=== PATIENT | male | born 1930 | race Caucasian/White ===

== ENCOUNTER 2018-04-10 16:37 | Emergency (ER) | payer OTHER ==
--- NOTE | 2018-04-10 16:41 | UC ---
Laceration HPI - HPI Summary HPI Summary: 88 yo male presents with LEFT leg laceration. 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 Sustained a laceration here. He bandaged the area and came to - History Of Current Complaint Stated Complaint: LEG LAC Time Seen by Provider: 04/10/18 16:38 Hx Obtained From: Patient Laceration Location: Leg Mechanism Of Injury: Blunt Trauma Onset/Duration: Sudden Onset Severity: Mild Pain Intensity: 2 Pain Scale Used: 0-10 Numeric - Allergies/Home Medications Allergies/Adverse Reactions: Allergies Allergy/AdvReac Type Severity Reaction Status Date / Time No Known Allergies Allergy Verified 04/10/18 17:06 PMH/Surg Hx/FS Hx/Imm Hx Cardiovascular History: Cardiac Disease, Hypertension, Atrial Fibrillation - Surgical History Surgical History: Yes Surgery Procedure, Year, and Place: HERNIA REPAIR, T&A - Family History Known Family History: Positive: Hypertension - Social History Occupation: Retired Lives: With Family Alcohol Use: Daily Alcohol Amount: 2 DRINKS/DAY Substance Use Type: None Smoking Status (MU): Never Smoked Tobacco Review of Systems All Other Systems Reviewed And Are Negative: Yes Constitutional: Positive: Negative Skin: Positive: Other - Left Leg laceration Respiratory: Positive: Negative Cardiovascular: Positive: Negative Musculoskeletal: Positive: Negative Neurological: Positive: Negative Psychological: Positive: Negative Physical Exam - Summary Physical Exam Summary: GENERAL: NAD. WDWN. No pain distress. SKIN: LEFT lower le.0cm superficial sheer-type laceration. No subcutaneous tissue exposed. Actively bleeding. CHEST: No accessory muscle use. Breathing comfortably and in no distress. CV: Pulses intact. Cap refill <2seconds NEURO: Alert. PSYCH: Age appropriate behavior. Triage Information Reviewed: Yes Vital Signs Reviewed: Yes Laceration Course/Dx - Course/Dx Course Of Treatment: Wound was cleansed with NS. Silver nitrate was used to cauterize the bleeding vessel. Hemostasis was achieved. The wound was bandaged with an abd pad and estela wrap. Pt has an appointment on 04/15 with his PCP. Advised to keep this appt for a wound check at that time. - Diagnosis Provider Diagnosis: Laceration of left leg Discharge - Sign-Out/Discharge Documenting (check all that apply): Patient Departure All imaging exams completed and their final reports reviewed: No Studies - Discharge Plan Condition: Stable Disposition: HOME Patient Education Materials: Laceration (ED) Referrals: Tai Rain MD [Primary Care Provider] - Additional Instructions: If you develop a fever, shortness of breath, chest pain, new or worsening symptoms - please call your PCP or go to the ED. Your blood pressure was high at todays visit. Please see your primary provider within 4 weeks for recheck and re-evaluation. 1) Please keep the area bandaged, clean, dry, and intact 2) Change the dressing daily 3) Keep your follow up appointment with your Primary Doctor for a wound check - Billing Disposition and Condition Condition: STABLE Disposition: Home
[2018-04-10 17:06] VITALS: BP 129/80
[2018-04-10] MEDS ORDERED: Silver Nitrate/Potassium Nitr* 1 EA STICK TOPICAL ONE (17:15)
== END 2018-04-10 17:30 | disposition home or self-care (01) ==
LOC: UCEAST 16:37
DX: S81.812A Laceration without foreign body, left lower leg, initial encounter (principal); W22.8XXA Striking against or struck by other objects, initial encounter; Y92.810 Car as the place of occurrence of the external cause
CPT/HCPCS: 99203; A9270-GY; G0463

== ENCOUNTER 2018-04-11 07:01 | Emergency (ER) | payer OTHER ==
[2018-04-11 07:17] VITALS: BP 188/71
[2018-04-11] MEDS ORDERED: Gelfoam 12-7 ADSORBABL SPONGE* 1 EA SPONGE TOPICAL ONE (07:32)
--- NOTE | 2018-04-11 07:36 | UC ---
Skin Complaint HPI - HPI Summary HPI Summary: 88-year-old male comes to clinic today with a chief complaint of a bleeding left koroma. 2 days ago he struck the koroma on his car. It did not bleed at that time. Yesterday it started bleeding quite a bit. He is on a blood thinner. He came here to clinic and the skin tear was cauterized and a pressure dressing placed. When the patient woke up this morning the dressing was soaked with blood and he came back to clinic. Patient does not feel he's got a pass out. Complaint of any pain. - History of Current Complaint Chief Complaint: UCLowerExtremity Time Seen by Provider: 04/11/18 07:24 Stated Complaint: LEG PAIN Pain Intensity: 0 - Allergy/Home Medications Allergies/Adverse Reactions: Allergies Allergy/AdvReac Type Severity Reaction Status Date / Time No Known Allergies Allergy Verified 04/11/18 07:18 PMH/Surg Hx/FS Hx/Imm Hx Cardiovascular History: Atrial Fibrillation Respiratory History: Asthma - Surgical History Surgical History: Yes Surgery Procedure, Year, and Place: HERNIA REPAIR, T&A - Family History Known Family History: Positive: Hypertension - Social History Alcohol Use: Daily Alcohol Amount: 2 DRINKS/DAY Substance Use Type: None Smoking Status (MU): Never Smoked Tobacco Review of Systems All Other Systems Reviewed And Are Negative: Yes Constitutional: Positive: Negative Skin: Positive: Other - see hpi Eyes: Positive: Negative ENT: Positive: Negative Respiratory: Positive: Negative Cardiovascular: Positive: Negative Gastrointestinal: Positive: Negative Motor: Positive: Negative Neurovascular: Positive: Negative Musculoskeletal: Positive: Negative Neurological: Positive: Negative Psychological: Positive: Negative Is Patient Immunocompromised?: No Physical Exam Triage Information Reviewed: Yes Appearance: Well-Appearing, No Pain Distress, Well-Nourished Vital Signs: Initial Vital Signs Temp 89.7 F 04/11/18 07:09 Pulse 81 04/11/18 07:09 Resp 20 04/11/18 07:09 BP 188/71 04/11/18 07:09 Pulse Ox 97 04/11/18 07:09 Vital Signs Reviewed: Yes Eye Exam: Normal Eyes: Positive: Conjunctiva Clear Neck exam: Normal Neck: Positive: Supple Respiratory: Positive: No respiratory distress Musculoskeletal Exam: Normal Musculoskeletal: Positive: Strength Intact, ROM Intact Neurological Exam: Normal Neurological: Positive: Alert, Muscle Tone Normal Psychological Exam: Normal Psychological: Positive: Normal Response To Family, Age Appropriate Behavior Skin: Positive: Other - There is a 2 cm skin tear left koroma with some dried blood that is not actively bleeding. On the right forearm there is a 1.5 cm open area that appears to be a skin tear to the skin has not regrown. Patient reports this happened a week ago and he's been putting Neosporin on it. Course/Dx - Course Course Of Treatment: Patient's left koroma wound was cleaned with sterile saline and Shur-Clens. I placed Surgicel on the wound. With the nature of the skin tear and with the patient being on blood thinners I feel at this time that suturing may actually increase bleeding. If the Surgicel and pressure dressing is not successful would consider a [id number] suture if needed. However with the wound being 2 days old I would only do that if necessary to stop bleeding. Follow-up his primary care doctor return with any other concerns. Patient also has a week old skin tear right forearm that he's been placing Neosporin on. There is some granulation tissue in it. Here that was cleaned and were going to place mupirocin and dressing on there and avoid the Neosporin. Also follow-up his primary care doctor for this wound. - Diagnoses Provider Diagnosis: Noninfected skin tear of left leg, Skin tear of right upper extremity Discharge - Sign-Out/Discharge Documenting (check all that apply): Patient Departure All imaging exams completed and their final reports reviewed: No Studies - Discharge Plan Condition: Stable Disposition: HOME Patient Education Materials: Skin Tear (ED) Referrals: Tai Rain MD [Primary Care Provider] - Additional Instructions: FOLLOW UP WITH YOUR DOCTOR. GET RECHECKED FOR ANY WORSENING OF YOUR CONDITION OR QUESTIONS OR CONCERNS. - Billing Disposition and Condition Condition: STABLE Disposition: Home
[2018-04-11] MEDS ORDERED: Mupirocin 2% OINT* TUBE TOPICAL ONE (07:50)
--- NOTE | 2018-04-12 08:14 | UC ---
Back Pain HPI - HPI Summary HPI Summary: 88-year-old male comes to clinic today with a chief complaint of a bleeding left koroma. 2 days ago he struck the koroma on his car. It did not bleed at that time. Yesterday it started bleeding quite a bit. He is on a blood thinner. He came here to clinic and the skin tear was cauterized and a pressure dressing placed. When the patient woke up this morning the dressing was soaked with blood and he came back to clinic. Patient does not feel he's got a pass out. Complaint of any pain. - History of Current Complaint Chief Complaint: UCLowerExtremity Stated Complaint: LEG PAIN Time Seen by Provider: 04/11/18 07:24 Pain Intensity: 0 Pain Scale Used: 0-10 Numeric - Allergies/Home Medications Allergies/Adverse Reactions: Allergies Allergy/AdvReac Type Severity Reaction Status Date / Time No Known Allergies Allergy Verified 04/11/18 07:18 PMH/Surg Hx/FS Hx/Imm Hx Cardiovascular History: Atrial Fibrillation, Other Respiratory History: Asthma - Surgical History Surgical History: Yes Surgery Procedure, Year, and Place: HERNIA REPAIR, T&A - Family History Known Family History: Positive: Hypertension - Social History Alcohol Use: Daily Alcohol Amount: 2 DRINKS/DAY Substance Use Type: None Smoking Status (MU): Never Smoked Tobacco Review of Systems All Other Systems Reviewed And Are Negative: Yes Constitutional: Positive: Negative Skin: Positive: Other - see hpi Eyes: Positive: Negative ENT: Positive: Negative Respiratory: Positive: Negative Cardiovascular: Positive: Negative Gastrointestinal: Positive: Negative Motor: Positive: Negative Neurovascular: Positive: Negative Musculoskeletal: Positive: Negative Neurological: Positive: Negative Psychological: Positive: Negative Physical Exam Triage Information Reviewed: Yes Appearance: Well-Appearing, No Pain Distress, Well-Nourished Vital Signs: Initial Vital Signs Temp 89.7 F 04/11/18 07:09 Pulse 81 04/11/18 07:09 Resp 20 04/11/18 07:09 BP 188/71 04/11/18 07:09 Pulse Ox 97 04/11/18 07:09 Vital Signs Reviewed: Yes Eye Exam: Normal Eyes: Positive: Conjunctiva Clear Neck exam: Normal Neck: Positive: Supple Respiratory: Positive: No respiratory distress Musculoskeletal Exam: Normal Musculoskeletal: Positive: Strength Intact, ROM Intact Neurological Exam: Normal Neurological: Positive: Alert, Muscle Tone Normal Psychological Exam: Normal Psychological: Positive: Normal Response To Family, Age Appropriate Behavior Skin: Positive: Other - There is a 2 cm skin tear left koroma with some dried blood that is not actively bleeding. On the right forearm there is a 1.5 cm open area that appears to be a skin tear to the skin has not regrown. Patient reports this happened a week ago and he's been putting Neosporin on it. Back Pain Course/Dx - Course Course Of Treatment: Patient's left koroma wound was cleaned with sterile saline and Shur-Clens. I placed Surgicel on the wound. With the nature of the skin tear and with the patient being on blood thinners I feel at this time that suturing may actually increase bleeding. If the Surgicel and pressure dressing is not successful would consider a [id number]-[id number]-[id number] suture if needed. However with the wound being 2 days old I would only do that if necessary to stop bleeding. Follow-up his primary care doctor return with any other concerns. Patient also has a week old skin tear right forearm that he's been placing Neosporin on. There is some granulation tissue in it. Here that was cleaned and were going to place mupirocin and dressing on there and avoid the Neosporin. Also follow-up his primary care doctor for this wound. - Differential Dx/Diagnosis Provider Diagnosis: Noninfected skin tear of left leg, Skin tear of right upper extremity Discharge - Sign-Out/Discharge All imaging exams completed and their final reports reviewed: No Studies - Discharge Plan Condition: Stable Disposition: HOME Patient Education Materials: Skin Tear (ED) Referrals: Tai Rain MD [Primary Care Provider] - Additional Instructions: FOLLOW UP WITH YOUR DOCTOR. GET RECHECKED FOR ANY WORSENING OF YOUR CONDITION OR QUESTIONS OR CONCERNS. - Billing Disposition and Condition Condition: STABLE Disposition: Home
== END 2018-04-11 08:00 | disposition home or self-care (01) ==
LOC: UCEAST 07:01
DX: S80.922A Unspecified superficial injury of left lower leg, initial encounter (principal); S50.911A Unspecified superficial injury of right forearm, initial encounter; X58.XXXA Exposure to other specified factors, initial encounter; Y92.9 Unspecified place or not applicable; Z79.01 Long term (current) use of anticoagulants
CPT/HCPCS: 99212; A9270-GY; G0463

== ENCOUNTER 2019-01-31 17:36 | Emergency (ER) | payer OTHER ==
[2019-01-31] MEDS ORDERED: Levalbuterol 0.63MG/3ML NEB* UNIT OF USE INH ONE (17:58)
--- NOTE | 2019-01-31 17:58 | UC ---
Shortness of Breath HPI - HPI Summary HPI Summary: 88 yo with COPD, atrial fibrillation, and anxiety, asked that his take him to the ER because he felt short of breath and feared that it would get worse. He uses Advair daily, and states that he uses about 10 puffs of albuterol per day, although also reports that his last use of albuterol was earlier this morning. He uses MDI, does not use nebs, and has not required oxygen. Both BP and heart rate are high on arrival, and he does not know his medications. Dr. Rain was contacted and we received a faxed copy of medications, including rx for levofloxacin 750mg daily. Mr. Swan was not certain why this was started, and Dr. Rain was contacted to clarify. Apparently Mr. Swan has had months of increased cough. Chest xray obtained at [facility] about 2 weeks ago showed a change from baseline. Images were reviewed by off site radiologist, with report received one week post study suggestin possible bilateral lower lobe pneumonia. Because of repeated concerns about cough, levofloxacin rx was sent on 01/03- with first dose taken this morning. It is notable that Mr. Swan could not produce this hixtory, and apears to have no recall of having had a chest xray done No recent fever, respiratory illness, or apparent trigger for increased dyspnea. He does not have chest pain. Does not use O2 at home, and has not had recent admissions. Desaturated to 85 with trip to bathroom during he course of evaluation. Both blood pressure and level of anxiety remained high. - History of Current Complaint Chief Complaint: UCRespiratory Stated Complaint: SOB Time Seen by Provider: 01/31/19 17:50 Hx Obtained From: Patient, Family/Legal Service Specialist - here with his . Onset/Duration: Sudden Onset, Lasting Hours Current Severity: Moderate Dyspnea At: Rest Aggravating Factors: Deep Breaths, Recumbent Position Alleviating Factors: Bronchodilators Associated Signs & Symptoms: Positive: Cough (Productive) - He uses albuterol to help to produce sputum. Improves if he brings up sputum. - Risk Factors Pulmonary Embolism: Negative Cardiac: Hypertension Pseudomonas: Negative Tuberculosis: Negative - Allergy/Home Medications Allergies/Adverse Reactions: Allergies Allergy/AdvReac Type Severity Reaction Status Date / Time No Known Allergies Allergy Verified 01/31/19 17:44 Home Medications: Home Medications Allopurinol [Zyloprim 300 MG TAB] 150 mg PO DAILY 01/31/19 [History Confirmed ] Aspirin 1 tab PO DAILY 01/31/19 [History Confirmed 01/31/19] Benzonatate 1 tab PO TID PRN 01/31/19 [History Confirmed 01/31/19] Chlorthalidone 1 tab PO DAILY 01/31/19 [History Confirmed 01/31/19] Cholecalciferol (Vitamin D3) [Vitamin D3] 1 tab PO DAILY 01/31/19 [History Confirmed 01/31/19] Fluticasone-Salmeterol 500-50* [Advair Diskus 500-50*] 1 puff INH BID 01/31/19 [ History Confirmed 01/31/19] Loratadine [Claritin] 1 tab PO DAILY PRN 01/31/19 [History Confirmed 01/31/19] Losartan Potassium 1 tab PO DAILY 01/31/19 [History Confirmed 01/31/19] Potassium Chloride 1 tab PO DAILY 01/31/19 [History Confirmed 01/31/19] Spiriva HANDIHALER DEVICE (NF) [Tiotropium Inhaler DEVICE (NF)] 1 inh PO DAILY 01/31/19 [History Confirmed 01/31/19] cloNIDine HCl [Clonidine HCl 0.3 MG] 1 tab PO BID 01/31/19 [History Confirmed ] clonazePAM [Clonazepam] 1 - 2 tab PO BID PRN 01/31/19 [History Confirmed ] levoFLOXacin [Levaquin] 1 tab PO DAILY 01/31/19 [History Confirmed 01/31/19] PMH/Surg Hx/FS Hx/Imm Hx Cardiovascular History: Hypertension, Atrial Fibrillation Respiratory History: COPD Neurological History: Other Psychological History: Anxiety - severe, uses clonazepam - Surgical History Surgical History: Yes Surgery Procedure, Year, and Place: HERNIA REPAIR, T&A - Family History Known Family History: Positive: Hypertension - Social History Occupation: Retired Lives: With Family Alcohol Use: Daily Alcohol Amount: 2 DRINKS/DAY Substance Use Type: None Smoking Status (MU): Never Smoked Tobacco Review of Systems All Other Systems Reviewed And Are Negative: Yes Constitutional: Positive: Fatigue Skin: Positive: Negative ENT: Positive: Negative, Dental Pain - reports that his teeth have been breaking off, but painless. This is new, and he has lost about 5 teeth in recent weeks. Dentist states no clear etiology for this.. Negative: Sore Throat , Sinus Congestion Respiratory: Positive: Shortness Of Breath, Cough Cardiovascular: Positive: Other - high heart rate.. Negative: Chest Pain Gastrointestinal: Positive: Negative Genitourinary: Positive: Negative Motor: Positive: Negative Neurovascular: Positive: Negative Musculoskeletal: Positive: Negative Neurological: Positive: Negative Psychological: Positive: Anxious - hx of anxiety. Is Patient Immunocompromised?: No Physical Exam Triage Information Reviewed: Yes Appearance: Ill-Appearing, Other: - Presents with elevated blood pressure and heart rate, with report of anxiety and observed irritability and agitation, frequently pacing. Desaturates with activity. Repeatedly states that he is too anxious to stay and repeatedly declines transfer to ER, stating that he just needs to leave to feel beter. Vital Signs: Initial Vital Signs Temp 99.6 F 01/31/19 17:39 Pulse 94 01/31/19 17:39 Resp 24 01/31/19 17:39 BP 218/98 01/31/19 17:39 Pulse Ox 96 01/31/19 17:39 Eyes: Positive: Conjunctiva Clear ENT: Positive: Pharynx normal Dental: Positive: Other: - lower incisors broken at the root Neck: Positive: Supple, Nontender, No Lymphadenopathy Respiratory Exam: Other - mildly tachypneic without indrawing, sternomastoid use , or subcostal retraction. Respiratory: Positive: Decreased breath sounds, Wheezing - equal in both lung swain, Expiration - prolonged. Negative: Crackles, Rhonchi Cardiovascular: Positive: No Murmur Abdomen Description: Positive: Nontender, No Organomegaly, Soft Neurological Exam: Other - Noted evidence of memory loss, with inability to recall medications, paucity of history with regard go dx of possible pneumonia and initiation of levofloxacin. Neurological: Positive: Alert, Muscle Tone Normal Psychological Exam: Other - Motor restless, repeatedly states that he is feeling very anxious and wants to leave. Skin Exam: Other - small ecchymoses upper extremities. Diagnostics - EKG Cardiac Rate: Tachycardia Cardiac Rhythm: AFib: Normal Ectopy: None ST Segment: Normal Re-Evaluation - Re-Evaluation First Eval Re-Evaluation Time: 18:10 Change: Unchanged - Xopenex given with improved air entry, but continues to report shortness of breath and a high level of anxiety. Second Eval Re-Evaluation Time: 18:35 Change: Improved - Some dercrease in anxiety with lorazepam but BP remains elevated and he states that he does not feel better. Repeatedly declines transfer to ER for work up. Reached Dr. Rain who advised that his BP's at office visits can reach 190 systolic. Denies chest pain but dyspnea persist. Shortness of Breath Dx - Course Course Of Treatment: 88 yo man with COPD, possible pneumonia per COMMUNITY PHARMACIST done at [facility]. with a marked level of anxiety and gradual change in cognitive status over months. He desaturates with exertion but rebounds quickly. He is adamant about not wanting to go the the ER for evaluation and his remains ambivalent. Dr. Rain will see in his office within the week. To continue levofloxacin for possible pneumonia. Mrs. Swan is aware that emergency room evaluation with 911 activation is appropriate if symtpoms progress. He received 60mg of oral prednisone prior to departure. Evaluation of declining cognitive status to be considered and possible additional treatment of anxiety - Differential Dx/Diagnosis Differential Diagnosis/HQI/PQRI: Bronchitis, CHF, Pneumonia, Other - atrial fibrillation Provider Diagnosis: COPD with exacerbation, Anxiety - Physician Notification/Consults Discussed Patient Care With: Tai Rain Time Discussed With Above Provider: 18:35 - Will re-evaluate in office in 1-3 days Discharge ED - Sign-Out/Discharge Documenting (check all that apply): Patient Departure All imaging exams completed and their final reports reviewed: No Studies - Discharge Plan Condition: Guarded Disposition: HOME Prescriptions: predniSONE TAB* [Deltasone 20 MG TAB*] 40 mg PO DAILY #10 tab Patient Education Materials: COPD (Chronic Obstructive Pulmonary Disease) (ED) Referrals: Tai Rain MD [Primary Care Provider] - Additional Instructions: You have been given prednisone 60mg this evening to help to ease your breathing. Continue the levofloxacin as directed by Dr. Rain. Depending on how you feel when you get home, you can take ONE HALF of your usual clonazepam dose. BE CAUTIOUS OF SEDATION. IF THE LORAZEPAM IS HELPFUL WITH THE ANXIETY, DO NOT TAKE THE CLONAZEPAM. IF YOUR BREATHING WORSENS, PLEASE GO THE [address]. Call Dr. Rain to arrange a visit within the next several days. - Billing Disposition and Condition Condition: GUARDED Disposition: Home
[2019-01-31] MEDS ORDERED: LORazepam TAB(*) 1 MG PO ONE (18:27)
[2019-01-31] MEDS ORDERED: predniSONE TAB* 20 MG PO ONE (18:41)
[2019-01-31 18:55] VITALS: BP 215/100
--- OUTSIDE RECORDS SUMMARY | 2019-01-31 19:12 | XMS REPORT | Continuity of Care Document ---
:1930 External Reference #:[id number] Author Name Tai Rain M.D. Address [address] [facility] [address] [place] [address] Care Team Providers Name Role Phone [facility] Spec/Tech, Care Team Information Business Services Analyst [phone] Cardiovascular Kimberley Newell MD, [facility] Care Team Information Business Services Analyst [phone] Problems Active Problems Provider Date Benign essential hypertension Tai Rain M.D. Onset: 11/28/2003 Pure hypercholesterolemia Tai Rain M.D. Onset: 11/28/2003 Gout Tai Rain M.D. Onset: 05/30/2004 Intrinsic asthma without status asthmaticus Tai Rain M.D. Onset: 01/2005 Impaired fasting glycaemia Tai Rain M.D. Onset: 01/12/2005 History of polyp of colon Tai Rain M.D. Onset: 10/04/2006 Chronic obstructive lung disease Tai Rain M.D. Onset: 05/09/2007 Atrial fibrillation Tai Rain M.D. Onset: 02/16/2012 Chronic atrial fibrillation Tai Rain M.D. Onset: 02/08/2015 Essential hypertension Tai Rain M.D. Onset: 02/26/2015 Anxiety state Tai Rain M.D. Onset: 02/26/2015 Chronic serous otitis media Tai Rain M.D. Onset: 02/26/2015 Vitamin D deficiency Tai Rain M.D. Onset: 02/26/2015 Social History Type Date Description Comments Sex Unknown Tobacco Use Reviewed: 07/10/14 Denies Cigarette Use Smoking Status Reviewed: 08/05/17 Denies Cigarette Use ETOH Use Drinks Alcohol Occasionally Tobacco Use Start: Unknown Patient has never smoked Allergies, Adverse Reactions, Alerts Active Allergies Reaction Severity Comments Date Lisinopril Cough 09/07/2005 Medications Active Medications SIG Qnty Indications Ordering Provider Date Cephalexin 1 by mouth 3x a 30tabs L03.116 Tai Rain, 01/04/2019 500mg day x10 days; for M.D. Tablets skin infection Potassium Chloride Take One Tablet By 90tabs I10 Tai Rain, 2018 Aura ER Mouth Every Day M.D. 20Meq Tablets ER R60.0 E87.6 Advair Diskus 1 puff 2 times a day 60units J44.9 Tai Rain, 2017 M.D. 500-50mcg/Dose Aerosol Eliquis Take One Tablet By 180tabs I48.2 Tai Rain, 10/06/2017 5mg Tablets Mouth Twice A Day To M.D. Decrease Risk Of Blood Clots From Atrial Fibrillation (To Replace Warfarin) Clonidine HCL take one tablet by 180tabs I10 Tai Rain, 09/10/2015 0.3mg Tablets mouth twice a day for M.D. high blood pressure Clonazepam 1/2-1 by mouth 2x/day 30tabs F41.9 Tai Rain, 11/14/2014 0.5mg Tablets as needed for anxiety M.D. Benzonatate Take One Capsule By 90caps R05 Sascha Melo, 07/23/2014 200mg Capsules Mouth Three Times A D.O. Day as Needed For Cough Ventolin HFA inhale 2 puffs by 54gm J44.1 Tai Rain, 06/13/2014 108(90Base) mouth every 4 to 6 M.D. mcg/Act Aerosol hours as needed for cough, wheezing and shortness of breath J44.9 Vitamin D3 1 by mouth every day E55.9 Tai Rain, 04/11/2014 2000Unit Capsules for vitamin d M.D. deficiency Compression Stockings use daily on legs to 1Pair R60.0 Tai Rain, 20-30 mm HG minimize edema; M.D. Knee High please also measure for the stockings. Losartan Potassium Take 1 Tablet By 90tabs I10 Tai Rain, 11/05/2010 100mg Mouth Daily For M.D. Tablets High Blood Pressure Terazosin HCL take 1 capsule by 90caps I10 Tai Rain, 04/15/2009 5mg Capsules mouth every night M.D. before bed for high blood pressure Claritin 1 by mouth every day 30tabs Tai Rain, 02/01/2008 10mg Tablets as needed M.D. Chlorthalidone take one tablet by 90tabs I10 Tai Rain, 02/01/2008 25mg Tablets mouth every day for M.D. high blood pressure Allopurinol take one-half tablet 45tabs Tai Rain, 11/09/2007 300mg Tablets daily to prevent M.D. gout Asp 1 Tab qd To Prevent 0caps Tai Rain, 07/16/2003 81mg Capsules A Stroke M.D. History Medications Silvadene apply to affected 85gm S90.522A Tai Rain, 01/04/2019 - 1% area near left M.D. 01/11/2019 Cream ankle and cover with non adherent gauze once daily as described, change wound dressing daily Immunizations CPT Code Status Date Vaccine Lot # [id number] Given 01/11/2019 Influenza Vaccine, Inactivated, Subunit, [id number] [place]ed[place] [facility] [place] [address] Given 01/12/2018 Influenza Vaccine Split Virus Preservative Free Im [id number] Use 54894 Given 12/14/2016 Influenza Vaccine Split Virus Preservative Free Im [id number] Use 11284 Given 01/15/2016 Influenza Vaccine Split Virus Preservative Free Im [id number] Use 20469 Given 03/06/2015 Influenza Virus Vaccine, Quadrivalent, Split, [id number] Preservative Free 47949 Given 10/09/2014 Prevnar 13 [id number] 52506 Given 02/26/2014 Influenza Vaccine Split Virus Preservative Free Im [id number] Use 56800 Given 09/29/2013 Adacel or Boostrix, TDaP [id number] 74744 Given 01/30/2013 Flu, Split Virus 3Yrs [id number] 52045 Given 01/06/2012 Flu, Split Virus 3Yrs [id number] 64812 Given 01/19/2011 Flu, Split Virus 3Yrs [id number] 27613 Given 02/25/2010 Flu, Split Virus 3Yrs [id number] 75721 Given 04/18/2009 Flu, Split Virus 3Yrs [id number] 87127 Given 02/17/2008 Flu, Split Virus 3Yrs [id number] 57468 Given 08/09/2007 Pneumococcal Immunization [id number] 82366 Given 01/31/2007 Flu, Split Virus 3Yrs [id number] 85466 Given 02/22/2006 Flu, Split Virus 3Yrs [id number] 91484 Given 01/30/2005 Flu, Split Virus 3Yrs 94724 Given 02/09/2004 Flu, Split Virus 3Yrs 03165 Given 08/29/2003 Td Immunization 82428 Given 02/17/2003 Flu, Split Virus 3Yrs 49766 Given 06/24/1994 Pneumococcal Immunization 19356 Refused 01/31/2007 Zostavax Vital Signs Date Vital Result Comment 01/11/2019 10:33am BP Systolic 154 mmHg BP Diastolic 60 mmHg Body Temperature 97.6 F Weight 183.00 lb 01/04/2019 9:09am BP Systolic 139 mmHg BP Diastolic 63 mmHg Heart Rate 74 /min Height 70 inches 5'10" with shoes Weight 183.00 lb with shoes BMI (Body Mass Index) 26.3 kg/m2 Results Test Date Facility Test Result H/L Range Note Laboratory test 10/18/2018 [facility] Calcium 10.8 mg/dL High 8.6- 10.3 finding [phone] Pthi 10/18/2018 [facility] Calcium (PTH 10.8 mg/dL High 8.6-10.3 [phone] Intact) PTH Intact 45.7 pg/mL Normal 12-88 Total Protein 24HR Urine 10/18/2018 [facility] Urine Collection Time 24 hr [phone] Urine Total Volume 1050 mL Urine TP Concentration 53 mg/dL Urine Total Protein/24HR 556 mg/24Hr High 0-165 Laboratory test 07/27/2018 [facility] TSH (Thyroid 1.27 mcIU/mL Normal 0.34-5.60 finding [phone] Stim Horm) CBC Auto Diff 07/27/2018 [facility] White Blood 5.7 10^3/uL Normal 3.5-10.8 [phone] Count Red Blood Count 4.61 10^6/uL Normal 4.18-5.48 Hemoglobin 14.9 g/dL Normal 14.0-18.0 Hematocrit 45 % Normal 36-46 Mean Corpuscular Volume 98 fL High 80-94 Mean Corpuscular Hemoglobin 32 pg High 27-31 Mean Corpuscular HGB Conc 33 g/dL Normal 31-36 Red Cell Distribution Width 15 % Normal 10.5-15 Platelet Count 152 10^3/uL Normal 150-450 Mean Platelet Volume 11.0 fL High 7.4-10.4 Abs Neutrophils 3.2 10^3/uL Normal 1.5-7.7 Abs Lymphocytes 1.4 10^3/uL Normal 1.0-4.8 Abs Monocytes 0.8 10^3/uL Normal 0-0.8 Abs Eosinophils 0.2 10^3/uL Normal 0-0.6 Abs Basophils 0.1 10^3/uL Normal 0-0.2 Abs Nucleated RBC 0 10^3/uL Granulocyte % 56.6 % Lymphocyte % 24.5 % Monocyte % 13.9 % Eosinophil % 3.6 % Basophil % 1.4 % Nucleated Red Blood Cells % 0.1 Comp Metabolic Panel 07/27/2018 [facility] Sodium 144 mmol/L Normal 135-145 [phone] Potassium 4.2 mmol/L Normal 3.5-5.0 Chloride 105 mmol/L Normal 101-111 Co2 Carbon Dioxide 30 mmol/L Normal 22-32 Anion Gap 9 mmol/L Normal 2-11 Glucose 107 mg/dL High 70-100 Blood Urea Nitrogen 25 mg/dL High 6-24 Creatinine 0.86 mg/dL Normal 0.67-1.17 BUN/Creatinine Ratio 29.1 High 8-20 Calcium 11.1 mg/dL High 8.6-10.3 Total Protein 7.3 g/dL Normal 6.4-8.9 Albumin 3.9 g/dL Normal 3.2-5.2 Globulin 3.4 g/dL Normal 2-4 Albumin/Globulin Ratio 1.1 Normal 1-3 Total Bilirubin 1.10 mg/dL High 0.2-1.0 Alkaline Phosphatase 236 U/L High 34-104 Alt 12 U/L Normal 7-52 Ast 17 U/L Normal 13-39 Egfr Non- 84.3 >60 Egfr 102.0 >60 1 Urine Micro Inhouse 07/26/2018 In House Ua WBC - 2 Ua RBC 2-3 Ua Casts - Ua Epi - Ua Other - Ua Glucose - Ua Bilirubin - Ua Ketones - Ua Specific [place] 1.015 Ua Blood NH Tr Ua PH 6.0 Ua Protein 2+ Ua Urobilinogen - Ua Nitrite - Ua Leukocytes - 1 Because ethnic data is not always readily available, this report includes an eGFR for both -Americans and non- Americans. The National Kidney Disease Education Program (NKDEP) does not endorse the use of the MDRD equation for patients that are not between the ages of 18 and 70, are , have extremes of body size, muscle mass, or nutritional status, or are non- or non-. According to the National Kidney Foundation, irrespective of diagnosis, the stage of the disease is based on the level of kidney function: Stage Description GFR(mL/min/1.73 m(2)) 1 Kidney damage with normal or decreased GFR 90 2 Kidney damage with mild decrease in GFR 60-89 3 Moderate decrease in GFR 30-59 4 Severe decrease in GFR 15-29 5 Kidney failure <15 (or dialysis) 2 void, clear, gold Procedures Date Code Description Status 07/26/2018 75918 Electrocardiogram Complete Completed 08/31/2006 09757272 Colonoscopy Completed Medical Devices Description No Information Available Encounters Type Date Location Provider Dx Diagnosis Office Visit 01/11/2019 Main Office Tai Rain, S90.522A Blister 10:30a M.D. (nonthermal), left ankle, initial encounter L03.116 Cellulitis of left lower limb R60.0 Localized edema Z23 Encounter for immunization I10 Essential (primary) hypertension Office Visit 01/04/2019 9:00a Main Office Tai Rain, R60.0 Localized edema M.D. S90.522A Blister (nonthermal), left ankle, initial encounter L03.116 Cellulitis of left lower limb Z68.26 Body mass index (BMI) 26.0-26.9, adult Office Visit 10/24/2018 9:15a Main Office Tai Rain, J44.9 Chronic obstructive M.D. pulmonary disease, unspecified F41.9 Anxiety disorder, unspecified I48.2 Chronic atrial fibrillation I10 Essential (primary) hypertension R80.9 Proteinuria, unspecified E83.52 Hypercalcemia Office Visit 07/26/2018 9:30a Main Office Tai aRin, I10 Essential (primary) M.D. hypertension I48.2 Chronic atrial fibrillation F41.9 Anxiety disorder, unspecified J44.9 Chronic obstructive pulmonary disease, unspecified R63.4 Abnormal weight loss K76.0 Fatty (change of) liver, not elsewhere classified Assessments Date Code Description Provider 01/11/2019 S90.522A Blister (nonthermal), left ankle, initial Tai Rain M.D. encounter 01/11/2019 L03.116 Cellulitis of left lower limb Tai Rain M.D. 01/11/2019 R60.0 Localized edema Tai Rain M.D. 01/11/2019 Z23 Encounter for immunization Tai Rain M.D. 01/11/2019 I10 Essential (primary) hypertension Tai Rain M.D. 01/04/2019 R60.0 Localized edema Tai Rain M.D. 01/04/2019 S90.522A Blister (nonthermal), left ankle, initial Tai Rain M.D. encounter 01/04/2019 L03.116 Cellulitis of left lower limb Tai Rain M.D. 01/04/2019 Z68.26 Body mass index (BMI) 26.0-26.9, adult Tai Rain M.D. 10/24/2018 J44.9 Chronic obstructive pulmonary disease, Tai Rain M.D. unspecified 10/24/2018 F41.9 Anxiety disorder, unspecified Tai Rain M.D. 10/24/2018 I48.2 Chronic atrial fibrillation Tai Rain M.D. 10/24/2018 I10 Essential (primary) hypertension Tai Rain M.D. 10/24/2018 R80.9 Proteinuria, unspecified Tai Rain M.D. 10/24/2018 E83.52 Hypercalcemia Tai Rain M.D. 07/26/2018 I10 Essential (primary) hypertension Tai Rain M.D. 07/26/2018 I48.2 Chronic atrial fibrillation Tai Rain M.D. 07/26/2018 F41.9 Anxiety disorder, unspecified Tai Rain M.D. 07/26/2018 J44.9 Chronic obstructive pulmonary disease, Tai Rain M.D. unspecified 07/26/2018 R63.4 Abnormal weight loss Tai Rain M.D. 07/26/2018 K76.0 Fatty (change of) liver, not elsewhere Tai Rain M.D. classified Plan of Treatment Future Appointment(s):02/20/2019 9:15 am - Tai Rian M.D. at Main [facility]3412/03/2017 - Nikunj GironJ44.9 Chronic obstructive pulmonary disease, unspecifiedNew Medication:Advair Diskus 500-50 mcg/Dose - 1 puff 2 times a dayComments:pt seemed to have decreased use of the Ventolin with the Advair, will cont thisI10 Essential (primary) hypertensionComments:pt advised to report cp, change in angina , sob et Continue same meds with no change. Comply with diet and exercise. Lose weight and watch salt in diet.Not controlled. Did not change meds due to high doses of current meds and would like to see labs first.R53.1 WeaknessComments:Pt is at risk for falling. Discussed use of cane or other ambulatory device due to standing with mild dizziness and somewhat slow unsteady gait. Pt listened but did express agreement today. (Grimaced some with the discussion.)Z71.89 Other specified yzpkyowwzfU02.899 Other vermin exterminator (current) drug therapy Functional Status Description No Information Available Mental Status Description No Information Available Referrals Refer to Reason for Referral Status Appt Kimberley Newell MD, Mha 88yo man with labile HTN, proteinuria. Sent Your suggestions regarding further w/u and medication management are appreciated Consult and Testing - Specialist decides [facility] [address] [place] [address] [phone]
--- OUTSIDE RECORDS SUMMARY | 2019-01-31 19:12 | XMS REPORT | Continuity of Care Document ---
:1930 External Reference #:[id number] Author Name Tai Rain M.D. Address [address] [facility] [address] [place] [address] Care Team Providers Name Role Phone [facility] Spec/Tech, Care Team Information Asphalt Screed Operator Cardiovascular Kimberley Newell MD, [facility] Care Team Information Asphalt Screed Operator [phone] Problems Active Problems Provider Date Benign essential [...] Tai Rain M.D. Onset: 02/26/2015 Anxiety state Tia Rain M.D. Onset: 02/26/2015 Chronic serous otitis [...] Medications SIG Qnty Indications Ordering Provider Date Spiriva Handihaler inhale the 90caps J44.9 Tai Rain, 01/16/2019 contents of one M.D. 18mcg Capsules capsule once daily as directed Potassium Chloride Take One Tablet 90tabs I10 Tai Rain, 01/02/2019 Aura ER By Mouth Every M.D. 20Meq Tablets Day ER R60.0 E87.6 Advair Diskus 1 puff [...] 81mg Capsules A Stroke M.D. History Medications Cephalexin 1 by mouth 3x a 30tabs L03.116 Tai Rain, 01/04/2019 - 500mg day x10 days; for M.D. 01/14/2019 Tablets skin infection Silvadene apply to affected 85gm S90.522A Tai Rain, 01/04/2019 - 1% area near left M.D. 01/11/2019 Cream ankle and cover with non adherent gauze once daily as described, change wound dressing daily Immunizations CPT Code Status Date Vaccine Lot # [id number] Given 01/11/2019 Influenza Vaccine, Inactivated, Subunit, [id number] [facility] Given 01/12/2018 Influenza Vaccine Split Virus Preservative Free Im [id number] Use 58170 Given 12/14/2016 Influenza Vaccine Split Virus Preservative Free Im [id number] Use 46642 Given 01/15/2016 Influenza Vaccine Split Virus Preservative Free Im [id number] Use 11577 Given 03/06/2015 Influenza Virus Vaccine, Quadrivalent, Split, [id number] Preservative Free 91511 Given 10/09/2014 Prevnar 13 [id number] 72827 Given 02/26/2014 Influenza Vaccine Split Virus Preservative Free Im [id number] Use 03676 Given 09/29/2013 Adacel or Boostrix, [id number] 70871 Given 01/30/2013 Flu, Split Virus 3Yrs [id number] 32162 Given 01/06/2012 Flu, Split Virus 3Yrs [id number] 30427 Given 01/19/2011 Flu, Split Virus 3Yrs [id number] 74183 Given 02/25/2010 Flu, Split Virus 3Yrs [id number] 09600 Given 04/18/2009 Flu, Split Virus 3Yrs [id number] 47066 Given 02/17/2008 Flu, Split Virus 3Yrs [id number] 55289 Given 08/09/2007 Pneumococcal Immunization [id number] 92598 Given 01/31/2007 Flu, Split Virus 3Yrs [id number] 03220 Given 02/22/2006 Flu, Split Virus 3Yrs [id number] 87423 Given 01/30/2005 Flu, Split Virus 3Yrs 38625 Given 02/09/2004 Flu, Split Virus 3Yrs 91104 Given 08/29/2003 Td Immunization 94621 Given 02/17/2003 Flu, Split Virus 3Yrs 43919 Given 06/24/1994 Pneumococcal Immunization 33826 Refused 01/31/2007 Zostavax Vital Signs Date Vital Result Comment 01/16/2019 8:56am BP Systolic 132 mmHg BP Diastolic 62 mmHg Heart Rate 64 /min O2 % BldC Oximetry 93 % Weight 182.00 lb w/sneakers 01/11/2019 10:33am BP Systolic 154 mmHg BP Diastolic 60 mmHg Body Temperature 97.6 F Weight 183.00 lb Results Test Date Facility Test Result H/L Range Note Xray 01/16/2019 [facility] Medicine X-Ray, Chest, <pending> 2 Views Laboratory test 10/18/2018 [facility] Calcium 10.8 mg/dL High 8.6- 10.3 finding [phone] Pthi 10/18/2018 [facility] Calcium (PTH 10.8 mg/dL High 8.6-10.3 [phone] Intact) PTH Intact 45.7 pg/mL Normal 12-88 Total Protein 24HR Urine 10/18/2018 [facility] Urine Collection Time 24 hr [phone] Urine Total Volume 1050 mL Urine TP Concentration 53 mg/dL Urine Total Protein/24HR 556 mg/24Hr High 0-165 Laboratory test 07/27/2018 [facility] TSH (Thyroid 1.27 mcIU/mL Normal 0.34-5.60 finding [phone] Stim Horm) CBC Auto Diff 07/27/2018 [facility] White Blood 5.7 10^3/uL Normal 3.5-10.8 [phone] Count Red Blood Count 4.61 10^6/uL Normal [...] Cells % 0.1 Comp Metabolic Panel 07/27/2018 [facility] Sodium 144 mmol/L Normal 135-145 [phone] Potassium 4.2 mmol/L Normal 3.5-5.0 Chloride 105 [...] Bilirubin - Ua Ketones - Ua Specific [place] 1.015 Ua Blood NH Tr Ua PH [...] clear, gold Procedures Date Code Description Status 01/16/2019 29482 X-Ray Chest 2 V Completed 07/26/2018 73951 Electrocardiogram Complete Completed 08/31/2006 [id number] Colonoscopy Completed Medical Devices Description No Information Available Encounters Type Date Location Provider Dx Diagnosis Office Visit 01/16/2019 Main Office Tai Rain, J44.9 Chronic obstructive 8:55a Sravan pulmonary disease, unspecified R05 Cough R09.89 Ot symptoms and signs involving the circ and resp systems R91.8 Other nonspecific abnormal finding of lung field Office Visit 01/11/2019 10:30a Main Office Briseyda S90.522A Steven Lujan M.D. (nonthermal), left ankle, initial encounter L03.116 [...] Office Visit 07/26/2018 9:30a Main Office Tai Rain, I10 Essential (primary) M.D. hypertension I48.2 Chronic atrial fibrillation F41.9 Anxiety disorder, unspecified J44.9 Chronic obstructive pulmonary disease, unspecified R63.4 Abnormal weight loss K76.0 Fatty (change of) liver, not elsewhere classified Assessments Date Code Description Provider 01/16/2019 J44.9 Chronic obstructive pulmonary disease, Tai Rain M.D. unspecified 01/16/2019 R05 Cough Tai Rain M.D. 01/16/2019 R09.89 Other specified symptoms and signs Tai Rain M.D. involving the circulatory and respiratory systems 01/16/2019 R91.8 Other nonspecific abnormal finding of lung Tai Rain M.D. field 01/11/2019 S90.522A Blister (nonthermal), left ankle, initial [...] Tai Rain M.D. 07/26/2018 F41.9 Anxiety disorder, marthaified Tai Rain M.D. 07/26/2018 J44.9 Chronic obstructive pulmonary disease, Tai Rain M.D. unspecified 07/26/2018 R63.4 Abnormal weight loss Tai Rain M.D. 07/26/2018 K76.0 Fatty (change of) liver, not elsewhere Tai Rain M.D. classified Plan of Treatment Future Appointment(s):02/20/2019 9:15 am - Tai Rain M.D. at Main Mdyiln5412/03/2017 - Nikunj GironJ44.9 Chronic obstructive pulmonary disease, [...] (Grimaced some with the discussion.)Z71.89 Other specified rosjzvlyzdJ54.899 Other shelter (current) drug therapy Functional Status Description No Information Available Mental Status Description No Information Available Referrals Refer to Dr Reason for Referral Status Appt Kimberley Newell MD, a 88yo man with labile HTN, proteinuria. Sent Your suggestions regarding further w/u and medication management are appreciated Consult and Testing - Specialist decides [facility] Nephrology [address] [address] [phone]
--- OUTSIDE RECORDS SUMMARY | 2019-01-31 19:13 | XMS REPORT | Continuity of Care Document ---
:1930 External Reference #:[id number] Author Name Asif Grant MD Address [address] [place] [address] Care Team Providers Name Role Phone Tai Rain M.D. 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 Central perforation of tympanic membrane Asif Grant MD Onset: 09/27/2014 Mucosanguinous chronic otitis media Asif Grant MD Onset: 11/16/2014 Other specified disorders of Eustachian tubeJuanita Ashu MD Onset: 01/24 bilateral Tympanosclerosis, bilateral Asif Grant MD Onset: 01/24/2015 Bilateral chronic serous otitis Asif Grant MD Onset: 02/07/2015 Chronic tympanitis Asif Grant MD Onset: 05/06/2015 Other specified disorders of Eustachian tube, Asif Grant MD Onset: 05/06 left ear Bilateral chronic serous otitis Asif Grant MD Onset: 05/13/2015 Other specified disorders of Eustachian tube, Asif Grant MD Onset: 08/04 right ear Epistaxis Asif Grant MD Onset: 01/23/2016 Acquired deformity of nose Asif Grant MD Onset: 01/23/2016 Chronic mucoid otitis media Asif Grant MD Onset: 03/19/2016 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, bilateral Excess skin of eyelid Asif Grant MD Onset: 08/27/2016 Social History Type Date Description Comments Sex Unknown Tobacco Use Start: Unknown Never Smoked Cigarettes Tobacco Use Start: Unknown Never Smoked Cigars Tobacco Use Start: Unknown Never Smoked A Pipe Smokeless Tobacco Never Used Smokeless Tobacco ETOH Use Current Alcohol Use Occasionally Tobacco Use Start: Unknown Patient has never smoked Allergies, Adverse Reactions, Alerts Description No Known Drug Allergies Medications Active Medications SIG Qnty Indications Ordering Date Provider Nallely Take 1 Tablet Daily 90tabs 471.8 Zan Oliver 06/08/2008 10mg Tablets Sravan Bravo Chlorthalidone scottrobertAsif 02/10/2008 25mg MD Tablets Eliquis Take One Tablet By Unknown 5mg Tablets Mouth Twice A Day To Decrease Risk Of Blood Clots From Atrial Fibrillation To Replace Warfarin Clonidine HCL Take One Tablet By Unknown 0.3mg Mouth Twice A Day Tablets For High Blood Pressure Tramadol HCL Take 1 2 Tablets By Unknown 50mg Mouth Every 6 Hours Tablets as Needed For Pain Maximum Kenia Clonazepam Take 1 2 1 Tablet Unknown 0.5mg By Mouth Two Times Tablets A Day as Needed For Anxiety Max Valium 1 tab by mouth Tai Rain 2mg Tablets every 12 hours as M.D. needed for prn Xopenex Unknown Allopurinol Unknown 150mg Clonidine 2 MG Unknown Atrovent 10 MG Unknown Claritin Unknown Benzonatate Unknown 100mg Capsules Cozaar Unknown 100mg Tablets Aspirin Unknown Lipitor Unknown 10mg Tablets Nasacort Aq Unknown Immunizations CPT Code Status Date Vaccine Lot # [id number] Given 05/07/2014 Prevnar 13 For Intramuscular Use 23238 Given 05/07/2014 Influenza Virus Vaccine, 3 Years Of Age And Above, Intramuscular Vital Signs Date Vital Result Comment 12/08/2018 9:08am Weight 194.00 lb Weight 87.998 kg Height 71 inches 5'11" Height in cm's 180.3 cm BMI (Body Mass Index) 27.1 kg/m2 11/24/2018 8:45am Weight 194.00 lb Weight 87.998 kg Height 71 inches 5'11" Height in cm's 180.3 cm BMI (Body Mass Index) 27.1 kg/m2 Results Description No Information Available Procedures Date Code Description Status 12/08/2018 13138 Binocular Microscopy Completed 11/24/2018 94188 Binocular Microscopy Completed Medical Devices Description No Information Available Encounters Type Date Location Provider Dx Diagnosis Office Visit 12/08/2018 [place],After Asif Grant H92.11 Otorrhea, right 9:00a 05/03/07 ear 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, bilateral Office Visit 11/24/2018 [place],After Asif Grant H92.11 Otorrhea, right 9:00a 05/03/07 ear 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, 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, bilateral Office Visit 10/27/2018 [place],After Asif Grant H92.11 Otorrhea, right 8:30a 05/03/07 ear 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, 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, bilateral D48.5 Neoplasm of uncertain behavior of skin Office Visit 06/27/2018 [place],After Asif Grant H92.11 Otorrhea, right 8:45a 05/03/07 ear 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, bilateral Assessments Date Code Description Provider 12/08/2018 H92.11 Otorrhea, right ear Asif Grant MD 12/08/2018 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, bilateral RuAsif roth MD 11/24/2018 H92.11 Otorrhea, right ear Asif Grant MD 11/24/2018 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, bilateral RuparAsif jones MD 11/24/2018 H90.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, Asif Grant MD bilateral 10/27/2018 H92.11 Otorrhea, right ear Juanita, Asif CHEN 10/27/2018 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, bilateral Asif Grant MD 10/27/2018 H90.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, Asif Grant MD bilateral 10/27/2018 D48.5 Neoplasm of uncertain behavior of skin Asif Grant MD 06/27/2018 H92.11 Otorrhea, right ear Asif Grant MD 06/27/2018 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
--- OUTSIDE RECORDS SUMMARY | 2019-01-31 19:13 | XMS REPORT | Continuity of Care Document ---
:1930 External Reference #:[id number] Author Name Zan Serra M.D. Address [address] [place] [address] Care Team Providers Name Role Phone Tai Rain M.D. - Family Care Team Information [facility] Juan Cronin M.D. - Cardiovascular Care Team Information [facility] [phone] Disease Problems Active Problems Provider Date Hearing loss Onset: Atrial fibrillation Onset: Essential hypertension Onset: Pure hypercholesterolemia Onset: Seasonal allergy Onset: Gout Onset: Nuclear senile cataract Zan Serra M.D. Onset: 11/20/2014 Vitreous degeneration Zan Serra M.D. Onset: 11/22/2015 Ocular hypertension Zan Serra M.D. Onset: 11/23/2016 Senile entropion Zan Serra M.D. Onset: 05/27/2017 Social History Type Date Description Comments Sex Unknown ETOH Use Drinks 2 Alcoholic Beverages Per Day Tobacco Use Start: Unknown Patient has never smoked Recreational Drug Use Denies Drug Use Smoking Status Reviewed: 12/06/18 Patient has never smoked Allergies, Adverse Reactions, Alerts Description No Known Drug Allergies Medications Active Medications SIG Qnty Indications Ordering Date Provider Benzonatate Silcoff, 200mg Capsules Sravan Lujan Clonidine HCL Silcoff, 0.3mg Tablets Sravan Lujan Allopurinol Silcoff, 300mg Tablets Sravan Lujan Losartan Potassium Silcoff, 100mg Sravan Lujan Tablets Terazosin HCL Silcoff, 5mg Capsules Sravan Lujan Chlorthalidone Silcoff, 25mg Tablets Sravan Lujan Vitamin D Silcoff, (Ergocalciferol) Sravan Lujan [id number] Capsules Aspir-81 1 by mouth every Unknown 81mg Tablets DR day Claritin 1 by mouth every Unknown 10mg Tablets day Clonazepam Silcoff, 0.5mg Tablets Sravan Lujan Ventolin HFA Inhale 2 Puffs as Unknown 108(90Base) Needed For Cough mcg/Act Aerosol Wheezing And Shortness Of Breath Tramadol HCL Take One To Two Unknown 50mg Tablets Tablets By Mouth Every 6 Hours as Needed For Pain Maxi Mucinex Unknown 600mg Tablets ER 12HR Potassium Chloride Aura Take One Tablet By Unknown ER Mouth Every Day 20Meq Tablets ER Allergy Eye Drops 1 drop both eyes Zan Serra, 0.025% every morning M.D. Solution (naga) Eliquis Unknown 5mg Tablets Immunizations Description No Information Available Vital Signs Date Vital Result Comment 07/05/2017 4:09pm BP Systolic 162 mmHg BP Diastolic 78 mmHg Heart Rate 47 /min Respiratory Rate 15 /min Results Description No Information Available Procedures Description No Information Available Medical Devices Description No Information Available Encounters Description No Information Available Assessments Date Code Description Provider 12/06/2018 H25.13 Age-related nuclear cataract, bilateral Zan Serra M.D. Plan of Treatment 12/06/2018 - Zan Serra M.D.H25.13 Age-related nuclear cataract, bilateralComments:Smoking can increase the risk of developing or worsening any eye related disease, as well as affect your overall health. If you are a smoker , we strongly recommend that you quit.If you are not a smoker, we strongly recommend that you do not start. You have been diagnosed with cataracts. If you are happy with your vision as it is now, then we will see you at your next scheduled appointment. If you feel like your vision is getting worse before your scheduled appointment, please call Gaby at [phone].Follow up:1 Year Follow Up Diagnostic Refraction You can expect to have your eyes dilated at your next visit.If Dr. Serra orders any additional testing, it may require extra time. We recommend that you bring sunglasses, as dilation drops often make you light sensitive until they wear off. We always recommend you bring someone to drive you home if you are uncomfortable driving with your eyes dilated. If you have any questions before your next visit, feel free to call our office at . Functional Status Description No Information Available Mental Status Description No Information Available Referrals Description No Information Available
--- OUTSIDE RECORDS SUMMARY | 2019-01-31 19:13 | XMS REPORT | Continuity of Care Document ---
:1930 External Reference #:[id number] Author Name Tai Rain M.D. Address [address] [place] [address] Care Team Providers Name Role Phone [facility] [employer], Care Team Information Scrap Materials Buyer [phone] Cardiovascular Kimberley Newell MD, [facility] Care Team Information Scrap Materials Buyer [phone] Problems Active Problems Provider Date Benign essential [...] x10 days; for M.D. Tablets skin infection Silvadene apply to affected 85gm S90.522A Tai Rain, 01/04/2019 1% Cream area near left M.D. ankle and cover with non adherent gauze once daily as described, change wound dressing daily Potassium Chloride Take One Tablet By 90tabs [...] Rain, 07/16/2003 81mg Capsules A Stroke M.D. Immunizations CPT Code Status Date Vaccine Lot # [id number] Given 01/12/2018 Influenza Vaccine Split Virus Preservative Free Im [id number] Use 81297 Given 12/14/2016 Influenza Vaccine Split Virus Preservative Free Im [id number] Use 60528 Given 01/15/2016 Influenza Vaccine Split Virus Preservative Free Im [id number] Use 16620 Given 03/06/2015 Influenza Virus Vaccine, Quadrivalent, Split, [id number] Preservative Free 04164 Given 10/09/2014 Prevnar 13 [id number] 34573 Given 02/26/2014 Influenza Vaccine Split Virus Preservative Free Im [id number] Use 02270 Given 09/29/2013 Adacel or Boostrix, TDaP [id number] 30087 Given 01/30/2013 Flu, Split Virus 3Yrs [id number] 59979 Given 01/06/2012 Flu, Split Virus 3Yrs [id number] 12290 Given 01/19/2011 Flu, Split Virus 3Yrs [id number] 96469 Given 02/25/2010 Flu, Split Virus 3Yrs [id number] 43899 Given 04/18/2009 Flu, Split Virus 3Yrs [id number] 01999 Given 02/17/2008 Flu, Split Virus 3Yrs [id number] 33698 Given 08/09/2007 Pneumococcal Immunization [id number] 34637 Given 01/31/2007 Flu, Split Virus 3Yrs [id number] 67817 Given 02/22/2006 Flu, Split Virus 3Yrs [id number] 64540 Given 01/30/2005 Flu, Split Virus 3Yrs 02201 Given 02/09/2004 Flu, Split Virus 3Yrs 83392 Given 08/29/2003 Td Immunization 36073 Given 02/17/2003 Flu, Split Virus 3Yrs 89727 Given 06/24/1994 Pneumococcal Immunization 79835 Refused 01/31/2007 Zostavax Vital Signs Date Vital Result Comment 01/04/2019 9:09am BP Systolic 139 mmHg BP Diastolic 63 mmHg Heart Rate 74 /min Height 70 inches 5'10" with shoes Weight 183.00 lb with shoes BMI (Body Mass Index) 26.3 kg/m2 10/24/2018 9:17am BP Systolic 136 mmHg BP Diastolic 84 mmHg BP Systolic Recheck 136 mmHg R arm sitting BP Diastolic Recheck 82 mmHg R arm sitting Weight 183.00 lb Results Test Date Facility Test Result H/L Range Note Laboratory test 10/18/2018 [facility] Calcium 10.8 mg/dL High 8.6- 10.3 finding [phone] Pthi 10/18/2018 [facility] Calcium (PTH 10.8 mg/dL High 8.6-10.3 [phone] Intact) PTH Intact 45.7 pg/mL Normal 12-88 Total Protein 24HR Urine 10/18/2018 [facility] Urine Collection Time 24 hr [phone] Urine Total Volume 1050 mL Urine TP Concentration 53 mg/dL Urine Total Protein/24HR 556 mg/24Hr High 0-165 Laboratory test 07/27/2018 [facility] TSH (Thyroid 1.27 mcIU/mL Normal 0.34-5.60 finding [phone] Stim Horm) CBC Auto Diff 07/27/2018 [facility] White Blood 5.7 10^3/uL Normal 3.5-10.8 [phone] Count Red Blood Count 4.61 10^6/uL Normal [...] Cells % 0.1 Comp Metabolic Panel 07/27/2018 [facility] Sodium 144 mmol/L Normal 135-145 [phone] Potassium 4.2 mmol/L Normal 3.5-5.0 Chloride 105 [...] Bilirubin - Ua Ketones - Ua Specific [place] 1.015 Ua Blood [place] Tr Ua PH [...] gold Procedures Date Code Description Status 07/26/2018 77797 Electrocardiogram Complete Completed 08/31/2006 91626463 Colonoscopy Completed Medical Devices Description No Information Available Encounters Type Date Location Provider Dx Diagnosis Office Visit 01/04/2019 9:00a Main Office Tai Rain M.D. R60.0 Localized edema S90.522A Blister (nonthermal), left ankle, initial encounter L03.116 Cellulitis of left lower limb Z68.26 Body mass index (BMI) 26.0-26.9, adult Office Visit 10/24/2018 9:15a Main Office Tai Rain J44.9 Chronic obstructive M.D. pulmonary disease, unspecified F41.9 Anxiety disorder, unspecified I48.2 Chronic atrial fibrillation I10 Essential (primary) hypertension R80.9 Proteinuria, unspecified E83.52 Hypercalcemia Office Visit 07/26/2018 9:30a Main Office Tai Rain I10 Essential (primary) M.D. hypertension I48.2 Chronic atrial fibrillation F41.9 Anxiety disorder, unspecified J44.9 Chronic obstructive pulmonary disease, unspecified R63.4 Abnormal weight loss K76.0 Fatty (change of) liver, not elsewhere classified Assessments Date Code Description Provider 01/04/2019 R60.0 Localized edema Tai Rain M.D. [...] Rain M.D. classified Plan of Treatment Future Appointment(s):01/11/2019 10:30 am - Tai Rain M.D. at Main Svqgqb9002/20/2019 9:15 am - Tai Rain M.D. at Main Xslidn1212/03/2017 - Eleni Giron.J44.9 Chronic obstructive pulmonary disease, unspecifiedNew Medication:Advair Diskus [...] (Grimaced some with the discussion.)Z71.89 Other specified helkwayzqaO16.899 Other senior living ( current) drug therapy Functional Status Description No Information Available Mental Status Description No Information Available Referrals Refer to Reason for Referral Status Appt Kimberley Newell MD, Mha 88yo man with labile HTN, proteinuria. Sent Your suggestions regarding further w/u and medication management are appreciated Consult and Testing - Specialist decides [facility] [address] [address] [phone]
== END 2019-01-31 19:11 | disposition home or self-care (01) ==
LOC: UCEAST 17:36
DX: J44.1 Chronic obstructive pulmonary disease with (acute) exacerbation (principal); R00.0 Tachycardia, unspecified; K08.89 Other specified disorders of teeth and supporting structures; F41.9 Anxiety disorder, unspecified; I48.91 Unspecified atrial fibrillation; R58 Hemorrhage, not elsewhere classified; I10 Essential (primary) hypertension; Z79.82 Long term (current) use of aspirin; Z79.899 Other long term (current) drug therapy
CPT/HCPCS: 93005; 99213; A9270-GY; G0463; J7512

== ENCOUNTER 2019-02-14 18:40 | Emergency (ER) | payer MEDICARE, OTHER ==
--- OUTSIDE RECORDS SUMMARY | 2019-02-14 19:04 | XMS REPORT | Continuity of Care Document ---
:1930 External Reference #:[id number] Author Name Asif Grant MD Address [address] [place] [address] Care Team Providers Name Role Phone Tai Rain M.D. 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 Onset: 10/23/2010 Chronic otitis media Asif Grant [...] Medications SIG Qnty Indications Ordering Date Provider Fluticasone 2 puffs both sides 47.4ml J31.0 Juanita [facility] 02/09/2019 Propionate once a day 50mcg/Act Suspension Singulair Take 1 Tablet Daily 90tabs 471.8 Zan NJuventino 06/08/2008 10mg Tablets Sravan Bravo Chlorthalidone [facility] 02/10/2008 25mg Tablets Prednisone Take Two Tablets By Unknown 20mg Tablets Mouth Every Day Eliquis Take One Tablet By Unknown 5mg [...] CPT Code Status Date Vaccine Lot # [id number] Given 05/07/2014 Prevnar 13 For Intramuscular Use 55900 Given 05/07/2014 Influenza Virus Vaccine, 3 Years [...] Available Procedures Date Code Description Status 12/08/2018 41856 Binocular Microscopy Completed 11/24/2018 74936 Binocular Microscopy Completed Medical Devices Description No Information Available Encounters Type Date Location Provider Dx Diagnosis Office Visit 12/08/2018 [place],After Asif Grant H92.11 Otorrhea, right 9:00a 05/03/07 ear 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, bilateral Office Visit 11/24/2018 [place],After Asif Grant H92.11 Otorrhea, right 9:00a 05/03/07 ear 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, 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, bilateral Office Visit 10/27/2018 [place],After Asif Grant H92.11 Otorrhea, right 8:30a 05/03/07 ear 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, 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, bilateral D48.5 Neoplasm of uncertain behavior of skin Assessments Date Code Description Provider 02/09/2019 H92.11 Otorrhea, right ear Asif Grant MD 02/09/2019 J31.0 Chronic rhinitis Asif Grant MD 12/08/2018 H92.11 Otorrhea, right ear Asif Grant MD 12/08/2018 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, bilateral Ruparelia, Asif MD 11/24/2018 H92.11 Otorrhea, right ear Asif Grant MD 11/24/2018 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, bilateral Asif Grant MD 11/24/2018 H90.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, Asif Grant MD bilateral 10/27/2018 H92.11 Otorrhea, right ear Asif Grant MD 10/27/2018 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, bilateral Asif Grant MD 10/27/2018 H90.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, Asif Grant MD bilateral 10/27/2018 D48.5 Neoplasm of uncertain behavior of skin Asif Grant MD Plan of Treatment Future Appointment(s):05/15/2019 9:00 am - Asif Grant MD at [place],After - Asif Grant MDH92.11 Otorrhea, right earComments:I instilled Chloromycetin boric acid powder in the right ear recheck back 4 xusednK70.03 Tympanosclerosis, bilateral Functional Status Description No Information Available Mental Status Description No Information Available Referrals Description No Information Available
--- OUTSIDE RECORDS SUMMARY | 2019-02-14 19:04 | XMS REPORT | Continuity of Care Document ---
:1930 External Reference #:[id number] Author Name Tai Rain M.D. Address [address] [facility] [address] [place] [address] Care Team Providers Name Role Phone [facility] [employer], Care Team Information Air Tucker [phone] Cardiovascular Kimberley Newell MD, [facility] Care Team Information Air Tucker [phone] Problems Active Problems Provider Date Benign essential [...] Medications SIG Qnty Indications Ordering Date Provider Prednisone 2 tablets (=40 10tabs J44.9 Unknown 01/31/2019 20mg Tablets mg) by mouth every day x 5 days starting on 02/01/19 Levofloxacin 1 by mouth every 10tabs Tai Rain, 01/30/2019 750mg day for possible M.D. Tablets pneumonia Spiriva Handihaler inhale the 90caps J44.9 Tai Rain, 01/16/2019 contents of one M.D. 18mcg Capsules capsule once daily as directed Potassium Chloride Take One Tablet By 90tabs [...] 09/10/2015 0.3mg Tablets mouth twice a day M.D. for high blood pressure Clonazepam 1/2-1 by mouth 30tabs F41.9 Tai Rain, 11/14/2014 0.5mg Tablets 2x/day as needed for M.D. anxiety Benzonatate Take One Capsule By 90caps R05 Sascha Melo, 07/23/2014 200mg Capsules Mouth Three Times A D.O. Day as Needed For Cough Ventolin HFA Inhale 2 Puffs By 108units J44.1 Tai Rain, 06/13/2014 108(90Base) Mouth Every 4 To 6 M.D. mcg/Act Aerosol Hours as Needed For Cough, Wheezing And Shortness Of Breath J44.9 Vitamin D3 1 by mouth every [...] CPT Code Status Date Vaccine Lot # [id number] Given 01/11/2019 Influenza Vaccine, Inactivated, Subunit, [id number] Adjuvanted, [place] [facility] [place] Given 01/12/2018 Influenza Vaccine Split Virus Preservative Free Im [id number] Use 53957 Given 12/14/2016 Influenza Vaccine Split Virus Preservative Free Im [id number] Use 64765 Given 01/15/2016 Influenza Vaccine Split Virus Preservative Free Im [id number] Use 69808 Given 03/06/2015 Influenza Virus Vaccine, Quadrivalent, Split, [id number] Preservative Free 91329 Given 10/09/2014 Prevnar 13 [id number] 21757 Given 02/26/2014 Influenza Vaccine Split Virus Preservative Free Im [id number] Use 88184 Given 09/29/2013 Adacel or Boostrix, TDaP [id number] 48277 Given 01/30/2013 Flu, Split Virus 3Yrs [id number] 06940 Given 01/06/2012 Flu, Split Virus 3Yrs [id number] 52398 Given 01/19/2011 Flu, Split Virus 3Yrs [id number] 98128 Given 02/25/2010 Flu, Split Virus 3Yrs [id number] 38311 Given 04/18/2009 Flu, Split Virus 3Yrs [id number] 15499 Given 02/17/2008 Flu, Split Virus 3Yrs [id number] 26581 Given 08/09/2007 Pneumococcal Immunization [id number] 98124 Given 01/31/2007 Flu, Split Virus 3Yrs [id number] 17433 Given 02/22/2006 Flu, Split Virus 3Yrs [id number] 80697 Given 01/30/2005 Flu, Split Virus 3Yrs 67088 Given 02/09/2004 Flu, Split Virus 3Yrs 84536 Given 08/29/2003 Td Immunization 66608 Given 02/17/2003 Flu, Split Virus 3Yrs 94959 Given 06/24/1994 Pneumococcal Immunization [id number] Refused 01/31/2007 Zostavax Vital Signs Date Vital Result Comment 02/01/2019 9:21am BP Systolic 160 mmHg BP Diastolic 80 mmHg Heart Rate 90 /min O2 % BldC Oximetry 93 % Body Temperature 98.3 F Weight 173.50 lb 01/16/2019 8:56am BP Systolic 132 mmHg BP Diastolic 62 mmHg Heart Rate 64 /min O2 % BldC Oximetry 93 % Weight 182.00 lb w/eakervalerie Results Test Date Facility Test Result H/L Range Note Laboratory test 10/18/2018 [facility] Calcium 10.8 mg/dL High 8.6- 10.3 finding [phone] Pthi 10/18/2018 [facility] Calcium (PTH 10.8 mg/dL High 8.6-10.3 [phone] Intact) PTH Intact 45.7 pg/mL Normal 12-88 Total Protein 24HR Urine 10/18/2018 [facility] Urine Collection Time 24 hr [phone] Urine Total Volume 1050 mL Urine TP Concentration 53 mg/dL Urine Total Protein/24HR 556 mg/24Hr High 0-165 Procedures Date Code Description Status 01/16/2019 74262 X-Ray Chest 2 V Completed 08/31/2006 10745788 Colonoscopy Completed Medical Devices Description No Information Available Encounters Type Date Location Provider Dx Diagnosis Office Visit 02/01/2019 Main Office Tai Rain J44.9 Chronic obstructive 9:15a M.D. pulmonary disease, unspecified R05 Cough R06.00 Dyspnea, unspecified F41.9 Anxiety disorder, unspecified I10 Essential (primary) hypertension Office Visit 01/16/2019 8:55a Main Office Tai Rain J44.9 Chronic obstructive M.D. pulmonary disease, unspecified R05 Cough R09.89 Oth symptoms and signs involving the circ and resp systems R91.8 Other nonspecific abnormal finding of lung field Office Visit 01/11/2019 10:30a Main Office Briseyda S90.522A Blister Sravan Lujan (nonthermal), left ankle, initial encounter L03.116 Cellulitis of left lower limb R60.0 Localized edema Z23 Encounter for immunization I10 Essential (primary) hypertension Office Visit 01/04/2019 9:00a Main Office Tai Rain R60.0 Localized edema M.D. S90.522A Blister (nonthermal), left ankle, initial encounter L03.116 Cellulitis of left lower limb Z68.26 Body mass index (BMI) 26.0-26.9, adult Office Visit 10/24/2018 9:15a Main Office Tai Rain J44.9 Chronic obstructive M.D. pulmonary disease, unspecified F41.9 Anxiety disorder, unspecified I48.2 Chronic atrial fibrillation I10 Essential (primary) hypertension R80.9 Proteinuria, unspecified E83.52 Hypercalcemia Assessments Date Code Description Provider 02/01/2019 Bettie Chronic obstructive pulmonary disease, Tai Rain M.D. unspecified 02/01/2019 R05 Cough Tai Rain M.D. 02/01/2019 R06.00 Dyspnea, unspecified Tai Rain M.D. 02/01/2019 F41.9 Anxiety disorder, unspecified Tai Rain M.D. 02/01/2019 I10 Essential (primary) hypertension Tai Rain M.D. 01/16/2019 J44.9 Chronic obstructive pulmonary disease, Tai [...] M.D. 10/24/2018 E83.52 Hypercalcemia Tai Rain M.D. Plan of Treatment Future Appointment(s):02/20/2019 9:15 am - Tai Rain M.D. at Main [id number]/03/2017 - Nikunj GironJ44.9 Chronic obstructive pulmonary disease, [...] (Grimaced some with the discussion.)Z71.89 Other specified [id number] Other fpc (current) drug therapy Functional Status Description No Information Available Mental Status Description No Information Available Referrals Refer to Reason for Referral Status Appt Kimberley Newell MD, a 88yo man with labile HTN, proteinuria. Sent Your suggestions regarding further w/u and medication management are appreciated Consult and Testing - Specialist decides [facility] [address] [place] [id number] [phone]
[2019-02-14] MEDS ORDERED: Albuterol 2.5 MG/3 ML NEB.SOL* (0.083%) INH ONE (19:34)
[2019-02-14 19:39] LABS: ABS Basophils 0.1 10^3/ul (0-0.2); ABS Eosinophils 0.1 10^3/ul (0-0.6); ABS Monocytes 1.4 10^3/ul (0-0.8); ABS Neutrophils 12.8 10^3/ul (1.5-7.7); Eosinophil % 0.7 %; Hematocrit 43 % (42-52); Hemoglobin 14.1 g/dL (14.0-18.0); Lymphocyte % 6.3 %; Mean Corpuscular HGB Conc 33 g/dL (31-36); Mean Corpuscular Hemoglobin 31 pg (27-31); Mean Corpuscular Volume 95 fL (80-94); Mean Platelet Volume 10.5 fL (7.4-10.4); Nucleated Red Blood Cells % 0.1; Platelet Count 178 10^3/uL (150-450); Red Blood Count 4.52 10^6 /uL (4.18-5.48); Red Cell Distribution Width 15 % (10-15); White Blood Count 15.4 10^3/uL (3.5-10.8)
[2019-02-14 19:44] LABS: INR 1.27 (0.82-1.09)
--- NOTE | 2019-02-14 19:45 | ED ---
Complex/Multi-Sys Presentation - HPI Summary HPI Summary: Pt is an 88 y/o M presenting to the ED after a fall. Pt is present with his and daughter. Pts states that pt was asleep when she left for work at 07:45. Pt states he drinks alcohol during the day in his car. Pt fell a couple of times at approximately 17:30 at home. Pt fell onto the floor while carrying a compressor to the garage when he lost his balance and fell. Pt was found by his around 07:30 on the floor in the family room unable to move and awake. Pts called the pts son who helped lift the pt into a chair after which the pt fell again from the chair. Pts states the pt could not hold himself up. Pt reports he fell on his right elbow and knee, and possibly injured his head during the fall. Pt has ecchymosis on the right elbow and knee , and an abrasion on the right knee. Pt denies neck pain, cough, abdominal pain , or fever. Pts states pts balance problem is not at baseline. Pt takes Eliquis twice a day. PT has a PMHx of atrial fibrillation. - History Of Current Complaint Chief Complaint: EDFall Time Seen by Provider: 02/14/19 19:20 Hx Obtained From: Patient Onset/Duration: Sudden Onset, Lasting Hours, Still Present Timing: Hours Severity Currently: Moderate Severity Initially: Moderate Associated Signs And Symptoms: Positive: Other - Negative neck pain; positive abrasion on right knee, ecchymosis on right elbow and right knee, loss of balance not at baseline. Negative: Cough, Abdominal Pain, Fever - Allergies/Home Medications Allergies/Adverse Reactions: Allergies Allergy/AdvReac Type Severity Reaction Status Date / Time No Known Allergies Allergy Verified 01/31/19 17:44 Home Medications: Home Medications Allopurinol TAB* [Zyloprim 300 MG TAB*] 150 mg PO DAILY 02/14/19 [History Confirmed 02/14/19] Aspirin EC TAB* [Ecotrin EC Low Dose 81 MG*] 81 mg PO DAILY 02/14/19 [History Confirmed 02/14/19] Benzonatate CAP* [Tessalon 100 MG CAP*] 200 mg PO TID PRN 02/14/19 [History Confirmed 02/14/19] Chlorthalidone TAB* [Hygroton TAB*] 25 mg PO DAILY 02/14/19 [History Confirmed 02/14/19] Cholecalciferol TAB* [Vitamin D TAB*] 2,000 units PO DAILY 02/14/19 [History Confirmed 02/14/19] LoraTADine TAB(NF) [Claritin 10 MG TAB(NF)] 10 mg PO DAILY 02/14/19 [History Confirmed 02/14/19] Potassium Chlor TAB* [Potassium Chlor TAB 20 MEQ*] 20 meq PO DAILY 02/14/19 [ History Confirmed 02/14/19] Tiotropium CAPSULE (NF) [Spiriva CAPSULE (NF)] 1 cap.inh INH DAILY 02/14/19 [ History Confirmed 02/14/19] PMH/Surg Hx/FS Hx/Imm Hx Previously Healthy: Yes Cardiovascular History: Reports: Hx Atrial Fibrillation, Hx Hypertension Respiratory History: Reports: Hx Chronic Obstructive Pulmonary Disease (COPD) Sensory History: Denies: Hx Legally Blind, Hx Deafness Opthamlomology History: Denies: Hx Legally Blind EENT History: Denies: Hx Deafness - Surgical History Surgical History: Yes Surgery Procedure, Year, and Place: HERNIA REPAIR, T&A Infectious Disease History: No Infectious Disease History: Denies: Traveled Outside the [place] in Last 30 Days - Family History Known Family History: Positive: Hypertension - Social History Lives: With Family Alcohol Use: Daily Alcohol Amount: Half a pint a day Hx Substance Use: No Substance Use Type: Reports: None Hx Tobacco Use: No Smoking Status (MU): Never Smoked Tobacco Review of Systems Negative: Fever Negative: Cough Negative: Abdominal Pain Negative: Arthralgia - Neck Positive: Bruising - Right elbow and knee, Other - Positive abrasion on right knee Neurological: Other - Positive loss of balance All Other Systems Reviewed And Are Negative: Yes Physical Exam - Summary Physical Exam Summary: Appearance: Well-appearing, Well-nourished, lying in bed comfortably Skin: Warm, dry, no obvious rash. Bruises and contusions in both knees. Eyes: sclera anicteric, no conjunctival pallor ENT: mucous membranes moist, pharynx appears normal Neck: Supple, nontender Respiratory: Clear to auscultation, no signs of respiratory distress Cardiovascular: Normal S1, S2. No murmurs. Normal distal pulses in tibial and radial bilaterally. Irregular heartbeat. Abdomen: Soft, nontender, normal active bowel sounds present Musculoskeletal: Normal, Strength/ROM Intact Neurological: A&Ox3, awake and alert, mentation is normal, speech is fluent and appropriate Psychiatric: affect is normal, does not appear anxious or depressed Triage Information Reviewed: Yes Vital Signs On Initial Exam: Initial Vitals Temp Pulse Resp BP Pulse Ox 99.3 F 89 24 177/85 98 02/14/19 18:42 02/14/19 18:42 02/14/19 18:42 02/14/19 18:42 02/14/19 18:42 Vital Signs Reviewed: Yes - Christine Coma Scale Best Eye Response: 4 - Spontaneous Best Motor Response: 6 - Obeys Commands Best Verbal Response: 5 - Oriented Coma Scale Total: 15 Procedures - Sedation Patient Received Moderate/Deep Sedation with Procedure: No Diagnostics - Vital Signs Vital Signs Temp Pulse Resp BP Pulse Ox 02/14/19 18:42 99.3 F 89 24 177/85 98 - Laboratory Lab Results: Lab Results 02/14/19 Range/Units 19:31 WBC 15.4 H (3.5-10.8) 10^3/uL RBC 4.52 (4.18-5.48) 10^6 /uL Hgb 14.1 (14.0-18.0) g/dL Hct 43 (42-52) % MCV 95 H (80-94) fL MCH 31 (27-31) pg MCHC 33 (31-36) g/dL RDW 15 (10-15) % Plt Count 178 (150-450) 10^3/uL MPV 10.5 H (7.4-10.4) fL Neut % (Auto) 83.4 % Lymph % (Auto) 6.3 % [place] % (Auto) 9.0 % Eos % (Auto) 0.7 % Baso % (Auto) 0.6 % Absolute Neuts (auto) 12.8 H (1.5-7.7) 10^3/ul Absolute Lymphs (auto) 1.0 (1.0-4.8) 10^3/ul Absolute Monos (auto) 1.4 H (0-0.8) 10^3/ul Absolute Eos (auto) 0.1 (0-0.6) 10^3/ul Absolute Basos (auto) 0.1 (0-0.2) 10^3/ul Absolute Nucleated RBC 0.0 10^3/ul Nucleated RBC % 0.1 Result Diagrams: 02/14/19 19:31 02/14/19 19:31 Lab Statement: Any lab studies that have been ordered have been reviewed, and results considered in the medical decision making process. - Radiology Chest X-ray Radiology Interpretation Completed By: Radiologist Summary of Radiographic Findings: Chest X-ray IMPRESSION: COPD WITH PULMONARY FIBROTIC CHANGES. Reviewed by ED physician. - CT Cervical Spine CT CT Interpretation Completed By: Radiologist Summary of CT Findings: Cervical Spine CT IMPRESSION: 1. No cervical spine traumatic abnormalities. 2. Moderate multilevel cervical spondylopathy. Reviewed by ED physician. Brain CT CT Interpretation Completed By: Radiologist Summary of CT Findings: Brain CT IMPRESSION: 1. No traumatic intracranial abnormalities. 2. Age-related atrophy and mild chronic small vessel ischemic disease. Reviewed by ED physician. Complex Multi-Symp Course/Dx Course Of Treatment: Pt is an 88 y/o M presenting to the ED after a fall. Pt is present with and daughter. Pts states that pt was asleep when she left for work at 07:45. Pt states he drinks alcohol during the day in his car. Pt fell a couple of times at approximately 17:30 at home. Pt fell onto the floor while carrying a compressor to the garage when he lost his balance and fell. Pt was found by his on the floor in the family room unable to move and awake. Pts called the pts son who helped lift the pt into a chair after which pt fell again from the chair. Pt reports he fell on his right elbow and knee, and possibly injured his head during the fall. Pt has ecchymosis on the right elbow and knee and an abrasion on the right knee. Pt denies neck pain , cough, abdominal pain, or fever. Pts states pts balance problem is not at baseline. Pt takes Eliquis twice a day. Pt has a PMHx of atrial fibrillation. On exam, pt had bruises and contusions in both knees, irregular heartbeat. In the ED course, pt was given albuterol 2.5 mg INH, azithromycin 500 mg IVPB, ceftriaxone sodium 1 gm IVPB, clonazepam 1 mg PO, guaifenesin 600 mg PO, and prednisone 40 mg PO. Laboratory abnormal findings: WBC 15.4, MCV 95 , MPV 10.5, absolute neuts 12.8, absolute monos 1.4, INR 1.27, BUN 57, creatinine 1.40, BUN/Creatinine ratio 40.7, calcium 11.1, total bilirubin 1.30, alkaline phosphatase 180, urine blood 1+, urine leukocyte esterase trace, urine RBC 2+, urine squamous epith cells present, urine bacteria 1+, hyaline casts present, and serum alcohol 34. Chest X-ray IMPRESSION: COPD WITH PULMONARY FIBROTIC CHANGES. Cervical Spine CT IMPRESSION: 1. No cervical spine traumatic abnormalities. 2. Moderate multilevel cervical spondylopathy. Brain CT IMPRESSION: 1. No traumatic intracranial abnormalities. 2. Age-related atrophy and mild chronic small vessel ischemic disease. Pt left the ED against medical advice with a diagnosis of bacterial pneumonia. - Diagnoses Provider Diagnoses: Bacterial pneumonia Discharge ED - Sign-Out/Discharge Documenting (check all that apply): Patient Departure - AMA - Discharge Plan Condition: Guarded Disposition: AGAINST MEDICAL ADVICE Patient Education Materials: Bacterial Pneumonia (ED) Referrals: Tai Rain MD [Primary Care Provider] - 1 Day Additional Instructions: You have elected to leave the hospital against medical advice, but you are always welcome to return, and I would urge you to do so if your condition worsens. In the interim I have prescribed some steroids and oral antibiotics so you can be treated at home. Please check in with your regular doctor tomorrow for a recheck. - Billing Disposition and Condition Condition: GUARDED Disposition: Against Medical Advice - Attestation Statements Document Initiated by Bree: Yes Documenting Scribe: Delilah Gordon Provider For Whom Bree is Documenting (Include Credential): Jovi Atkinson MD Scribe Attestation: IDelilah, scribed for Jovi Atkinson MD on 03/09/19 at 0531. Scribe Documentation Reviewed: Yes Provider Attestation: The documentation as recorded by the Delilah alas accurately reflects the service I personally performed and the decisions made by me, Jovi Atkinson MD Status of Scribe Document: Viewed
[2019-02-14 19:56] LABS: Urine Appearance Clear; Urine Bacteria 1+ (Absent); Urine Bilirubin Negative (Negative); Urine Blood 1+ (Negative); Urine Color Yellow; Urine Glucose Negative (Negative); Urine Ketones Negative (Negative); Urine Nitrite Negative (Negative); Urine Protein Negative (Negative); Urine Red Blood Cell 2+(6-10/hpf) (Absent); Urine Specific Gravity 1.017 (1.010-1.030); Urine Squamous Epithelial Cell Present (Absent); Urine Urobilinogen Negative (Negative); Urine White Blood Cell Trace(0-5/hpf) (Absent)
[2019-02-14 20:02] LABS: Albumin 3.4 g/dL (3.2-5.2); Albumin/Globulin Ratio 1.1 (1-3); BUN/Creatinine Ratio 40.7 (8-20); Calcium 11.1 mg/dL (8.6-10.3); EGFR African American 58.1 (>60); EGFR Non-African American 48.1 (>60); Potassium 4.2 mmol/L (3.5-5.0); Total Bilirubin 1.3 mg/dL (0.2-1.0); Total Protein 6.4 g/dL (6.4-8.9)
[2019-02-14 20:02] LABS: Urine Benzodiazepine Screen None Detected (None Detect); Urine Opiates Screen None Detected (None Detect)
[2019-02-14] MEDS ORDERED: clonazePAM TAB(*) 1 MG PO ONE ×2 (20:32→22:53)
[2019-02-14] MEDS ORDERED: guaiFENesin ER TAB 600 MG PO ONE (22:44)
[2019-02-14] MEDS ORDERED: Azithromycin 500 mg/250 ml NS 500 MG/250 ML BAG IVPB ONE (22:47)
[2019-02-14] MEDS ORDERED: cefTRIAXone(*) 1 GM in NS 0.9% 50 ML* 50 ML IVPB ONE (22:47)
[2019-02-15] MEDS ORDERED: predniSONE TAB* 20 MG PO ONE (00:34)
[2019-02-15 01:00] VITALS: BP 141/66
[2019-02-15] MEDS ORDERED: LORazepam TAB(*) 1 MG PO PRN (05:52)
[2019-02-15] MEDS ORDERED: clonazePAM TAB(*) 0.5 MG PO PRN (06:38)
[2019-02-15] MEDS ORDERED: Benzonatate CAP* 100 MG PO PRN (06:40)
[2019-02-15] MEDS ORDERED: Cholecalciferol TAB* 1000 UNITS PO SCH (09:00)
[2019-02-15] MEDS ORDERED: Fluticasone-Salmeterol 500-50* DISKUS INH SCH (09:00)
[2019-02-15] MEDS ORDERED: Chlorthalidone TAB* 50 MG PO SCH (09:00)
[2019-02-15] MEDS ORDERED: TIOTROPIUM INH SCH (09:00)
[2019-02-15] MEDS ORDERED: cloNIDine TAB* 0.1 MG PO SCH (09:00)
[2019-02-15] MEDS ORDERED: Aspirin EC TAB* 81 MG TAB.EC PO SCH (09:00)
[2019-02-15] MEDS ORDERED: Terazosin CAP* 5 MG PO SCH (09:00)
[2019-02-15] MEDS ORDERED: Cetirizine* 10 MG TAB PO SCH (09:00)
[2019-02-15] MEDS ORDERED: Apixaban* 5 MG TAB PO SCH (09:00)
[2019-02-15] MEDS ORDERED: Albuterol HFA INHALER* 8 gm MDI INH SCH (09:00)
== END 2019-02-15 01:00 | disposition left against medical advice (07) ==
LOC: ED 18:40
DX: J15.9 Unspecified bacterial pneumonia (principal); J44.9 Chronic obstructive pulmonary disease, unspecified; I48.91 Unspecified atrial fibrillation; I10 Essential (primary) hypertension; Z79.899 Other long term (current) drug therapy; Z79.82 Long term (current) use of aspirin; Z53.29 Procedure and treatment not carried out because of patient's decision for other reasons
CPT/HCPCS: 36415; 70450; 71046; 72125; 80053; 80307; 80320; 81003; 81015; 85025; 85610; 87040; 87086; 96365; 99284; A9270-GY; G0480; J0456; J0696; J7512

== ENCOUNTER 2019-02-15 03:42 | Inpatient (IN) | payer OTHER ==
[2019-02-15] MEDS ORDERED: clonazePAM TAB(*) 1 MG PO ONE (03:52)
--- NOTE | 2019-02-15 03:56 | ED ---
Progress - Progress Note Progress Note: Pt returned to the ED after leaving the ED on 02/14/19 against medical advice with a diagnosis of bacterial pneumonia. He was felt to be too ill, weak to be treated at home but was insistent on leaving. See previous note for details of that presentation. He returns having realized he is too weak to get around at home, and understands the need for admission. At 03:50, Dr. Rey agrees to admit the pt to [facility] for a diagnosis of bacterial pneumonia. Physical Exam Triage Information Reviewed: Yes Vital Signs On Initial Exam: Initial Vitals Temp Pulse Resp BP Pulse Ox 37.7 C 73 16 127/61 94 02/15/19 03:55 02/15/19 03:55 02/15/19 03:55 02/15/19 03:55 02/15/19 03:55 Vital Signs Reviewed: Yes Appearance: Positive: Ill-Appearing Skin: Positive: Warm, Skin Color Reflects Adequate Perfusion Head/Face: Positive: Normal Head/Face Inspection Eyes: Positive: Normal ENT: Positive: Normal ENT inspection Neck: Positive: Supple, Nontender Respiratory/Lung Sounds: Positive: Breath Sounds Present. Negative: Stridor, Tracheal Deviation Cardiovascular: Positive: Normal Abdomen Description: Positive: Nontender Bowel Sounds: Positive: Present Musculoskeletal: Positive: Other - diffusely weak Neurological: Positive: Abnormal Gait - pt unable to stand for gait assessment Psychiatric: Positive: Normal - [place] Coma Scale Coma Scale Total: 15 Re-Evaluation - Re-Evaluation First Eval Comment: No sedation was done on this visit. FH: non contributory. SH: Lives at home with his , who is unable to provide enough care for him given his weakness Course/Dx - Course Course Of Treatment: Pt returned to the ED after leaving the ED on 02/14/19 against medical advice with a diagnosis of bacterial pneumonia. At 03:50, Dr. Rey agrees to admit the pt to [facility] for a diagnosis of bacterial pneumonia. - Diagnoses Provider Diagnoses: Bacterial pneumonia Discharge ED - Sign-Out/Discharge Documenting (check all that apply): Patient Departure - Admit - Discharge Plan Condition: Fair Disposition: ADMITTED TO [facility] - Billing Disposition and Condition Condition: FAIR Disposition: Admitted to [facility] - Attestation Statements Document Initiated by Scribe: Yes Documenting Scribe: Delilah Gordon Provider For Whom Antoinee is Documenting (Include Credential): Jovi Atkinson MD Scribe Attestation: I, Delilah Gordon, scribed for Jovi Atkinson MD on 03/08/19 at 1827. Scribe Documentation Reviewed: Yes Provider Attestation: The documentation as recorded by the scribe, Delilah Gordon accurately reflects the service I personally performed and the decisions made by me, Jovi Atkinson MD Status of Scribe Document: Viewed Consult Consult: At 03:50, Dr. Rey agrees to admit the pt to [facility] for a diagnosis of bacterial pneumonia. Review Of Systems - Review of Systems Eyes: No Blurry Vision Abdominal: No Nausea Neurological: No Numbness/Tingling
[2019-02-15] MEDS ORDERED: Benzonatate CAP* 100 MG PO PRN (06:51)
[2019-02-15 06:54] LABS: ABS Lymphocytes 0.5 10^3/ul (1.0-4.8); ABS Monocytes 0.3 10^3/ul (0-0.8); ABS Neutrophils 10.1 10^3/ul (1.5-7.7); Hematocrit 41 % (42-52); Hemoglobin 13.9 g/dL (14.0-18.0); Lymphocyte % 4.8 %; Mean Corpuscular HGB Conc 34 g/dL (31-36); Mean Corpuscular Hemoglobin 32 pg (27-31); Mean Corpuscular Volume 95 fL (80-94); Mean Platelet Volume 10.4 fL (7.4-10.4); Platelet Count 154 10^3/uL (150-450); Red Blood Count 4.31 10^6 /uL (4.18-5.48); Red Cell Distribution Width 14 % (10-15)
[2019-02-15] MEDS ORDERED: LORazepam TAB(*) 1 MG PO ONE (07:05)
[2019-02-15 07:20] LABS: ALT 16 U/L (7-52); AST 45 U/L (13-39); Albumin 3.1 g/dL (3.2-5.2); Albumin/Globulin Ratio 1.1 (1-3); Alkaline Phosphatase 163 U/L (34-104); Anion Gap 7 mmol/L (2-11); BUN/Creatinine Ratio 43.7 (8-20); Blood Urea Nitrogen 55 mg/dL (6-24); C Reactive Protein 43.86 mg/L (<8.01); CO2 Carbon Dioxide 26 mmol/L (22-32); Calcium 10.5 mg/dL (8.6-10.3); Chloride 104 mmol/L (101-111); EGFR African American 65.7 (>60); EGFR Non-African American 54.3 (>60); Globulin 2.9 g/dL (2-4); Glucose 126 mg/dL (70-100); Indirect Bilirubin 1.2 mg/dL (0.3-1.0); Potassium 4.4 mmol/L (3.5-5.0); Sodium 137 mmol/L (135-145)
[2019-02-15 07:22] LABS: Rheumatoid Factor < 10 IU/mL (<15)
[2019-02-15] MEDS: Mometasone/Formoter 200/5 MDI INH SCH ×2 (08:44→20:18)
[2019-02-15] MEDS: Albuterol HFA INHALER* 8 gm MDI INH SCH ×2 (08:44→20:14)
[2019-02-15] MEDS: cloNIDine TAB* 0.1 MG PO SCH ×2 (09:54→20:10)
[2019-02-15] MEDS: Apixaban* 5 MG TAB PO SCH ×2 (09:54→20:07)
[2019-02-15] MEDS: Terazosin CAP* 5 MG PO SCH (09:55)
[2019-02-15] MEDS: Chlorthalidone TAB* 50 MG PO SCH (09:55)
[2019-02-15] MEDS: Cetirizine* 10 MG TAB PO SCH (09:55)
[2019-02-15] MEDS: Aspirin EC TAB* 81 MG TAB.EC PO SCH (09:55)
[2019-02-15] MEDS: Cholecalciferol TAB* 1000 UNITS PO SCH (09:56)
[2019-02-15] MEDS: clonazePAM TAB(*) 0.5 MG PO PRN ×2 (09:56→20:07)
--- NOTE | 2019-02-15 11:42 | HP ---
HISTORY AND PHYSICAL: DATE OF ADMISSION: 02/15/19 ADMITTING PROVIDER: Addy Rey MD. PRIMARY CARE PROVIDER: Tai Rain MD. CHIEF COMPLAINT: Fall, inability to ambulate, agitation in the setting of alcohol intoxication HISTORY OF PRESENT ILLNESS: Zan Swan is an 88-year-old male with a past medical history of longstanding alcoholism, anxiety, ?COPD (he notably has never been a smoker), hypertension, gout, and paroxysmal atrial fibrillation, Eliquis. His came home from work on 02/14/19 and found him face down on the floor and stated he could not move. She attempted to lift him up, but needed her son's assistance. They eventually got him up and he slid to the ground when they tested to see if he could stand on his own. EMS was then called. He was brought to the [facility] Emergency Room and found to have leukocytosis of 15.4. He had a CT of the head, noncontrast, that showed age- related atrophy, mild chronic small vessel ischemic disease, no traumatic intracranial abnormalities. He had a CT of the cervical spine, which showed no traumatic abnormalities and moderate multilevel cervical spondylopathy. He had a chest x-ray, which was read formally as COPD with pulmonary fibrotic changes. He was quite agitated and refused admission. He had to be wheeled out in a wheelchair. When they got home, he had a lot of difficulty getting up his stairs and then fell again in the bathroom and his then dragged him along the floor when she finally decided "enough was enough" and called 911 again. He was given Klonopin. In the emergency room, he was found to be snoring, not able to provide any history. At this time he met SIRS criteria with tachycardia to 128 at 10 p.m. on 02/14/19 and T-max was 99.8. Notably, on 01/31 he went to a convenient care with complaint of anxiety and difficulty breathing. He had had an outpatient chest x-ray reportedly about 2 weeks prior to that, which showed a change from baseline and the suggestion of possible bilateral lower lobe pneumonia, and was started on Levaquin for 10 days on 01/30. There was also suspicion for possible COPD exacerbation at the [facility] care and was given 40 mg of prednisone for 5 days after he refused further evaluation in the emergency room. His states that the patient has been a heavy drinker for their entire 50-year of marriage, except for 1 year when he was on probation after a DUI. He never had alcohol withdrawal seizures. She denies that he has complained of any fevers, chills, nausea, vomiting, abdominal pain, diarrhea, constipation, night sweats. He has been losing his teeth, kind of breaking off right at the base and follows with the dentist for that. He does have a cough and has been forced to eat softer foods. He sleeps in a recliner and wears compression stockings, right greater than left. She does not know if he has ever had an echocardiogram. He got azithromycin and ceftriaxone in the ED before leaving [facility] given Dr. Atkinson's concern for possible left base infiltrate. PAST MEDICAL HISTORY: Paroxysmal atrial fibrillation, on Eliquis, hypertension , anxiety, ?COPD, gout, and hyperlipidemia. MEDICATIONS: Include: 1. Klonopin 0.5 mg b.i.d. p.r.n. 2. Clonidine 0.3 mg p.o. b.i.d. 3. Spiriva 1 capsule inhaled daily. 4. Terazosin 5 mg p.o. daily. 5. Potassium chloride 20 mEq p.o. daily. 6. Claritin 10 mg p.o. daily. 7. Fluticasone/salmeterol (Advair) 500/50, one puff inhaled b.i.d. 8. Cholecalciferol 2000 units p.o. daily. 9. Chlorthalidone 25 mg p.o. daily. 10. Tessalon 200 mg p.o. t.i.d. p.r.n. 11. Allopurinol 150 mg p.o. daily. 12. Aspirin 81 mg daily. 13. Eliquis 5 mg p.o. b.i.d. 14. Albuterol 1 puff p.o. b.i.d. He also recently completed a course of Prednisone 20 mg p.o. daily. ALLERGIES: No known drug allergies. FAMILY HISTORY: Father of COPD at age 92. Mother suddenly in her early 80s, not clear about the cause. Sister is healthy at age 82. SOCIAL HISTORY: The patient is retired. 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 Alcohol use for the last at least 50 years, approximately 1 pint of gin a day. His did not know exactly how much until this is what he told the EMS provider. He does drive himself to the liquor store within 5 minutes of it opening each day and tries to mask his use from his family in [employer] products. He is a never smoker. No known drug use. He told the nurse that he wanted to be a full code this admission and his is also in agreement with that. They reportedly had a DNR previously. REVIEW OF SYSTEMS: Complete 14-point review of systems is negative, but limited as this is all from Miranda, his , as he is fast asleep. PHYSICAL EXAMINATION VITAL SIGNS: Temperature 99.8, heart rate 73, had peaked at 128 at 10 p.m. the day prior to admission, saturating 94% on room air, respiratory rate is 16, blood pressure is 127/61. HEENT: Normocephalic, atraumatic. Multiple teeth broken at the base, in the lower jaw. LUNGS: Clear anteriorly. No wheezing, rhonchi or rales. CARDIOVASCULAR: Regular rate and rhythm, without murmurs, rubs or gallops. ABDOMEN: Soft, nontender, nondistended. EXTREMITIES: Warm and well perfused. There is 2+ pitting edema in the right leg and 1+ in the left leg. SKIN: Multiple ecchymoses in bilateral forearms. NEUROLOGIC: He is fast asleep, does briefly move his lower extremities to palpation. DIAGNOSTIC STUDIES/LABORATORY DATA: White count is 15.4, hematocrit 43, hemoglobin 14.1, platelets 178. INR is 1.27. Sodium is 137, potassium is 4.2, chloride is 102, carbon dioxide is 25, BUN is 57, creatinine 1.40. Total bilirubin is 1.30. Calcium is 11.1. AST is 25, ALT is 13, alkaline phosphatase is 180. Urinalysis shows 1+ blood with trace leukocyte esterase, 2+ rbc's, 1+ bacteria, squamous epithelials present. Serum alcohol is 34. Other toxicology screen is negative. Imaging: He had a CT of the head, noncontrast, that showed age-related atrophy , mild chronic small vessel ischemic disease, no traumatic intracranial abnormalities. He had a CT of the cervical spine, which showed no traumatic abnormalities and moderate multilevel cervical spondylopathy. He had a chest x-ray, which was read formally as COPD with pulmonary fibrotic changes. ASSESSMENT AND PLAN: Zan Swan is an 88-year-old male with past medical history of chronic alcoholism, paroxysmal atrial fibrillation(on Eliquis), hypertension, and likely COPD, and recent abnormal chest x-ray for which he received Levaquin x10 days as an outpatient, presenting with fall, inability to ambulate, repeated fall once he left AMA, leukocytosis, intermittent tachycardia , and T-max of 99.8. He is status post ceftriaxone and azithromycin in the emergency room last night. Infectious etiologies are being followed up on. Follow up urine culture and blood cultures, Strep urine antigen, Legionella urine antigen. I have some concern that he is aspiration risk given his alcoholism and repeated falls. We are going to continue ceftriaxone and azithromycin for now, but low threshold for putting him on Zosyn if he does not respond clinically. Repeat labs and put him on WAM protocol given his excessive alcohol use history. I am going to continue his Eliquis, his aspirin , chlorthalidone, his Klonopin p.r.n., his clonidine, his Advair, Claritin, terazosin, and Spiriva. We will request records from Dr. Rain. We are planning on a duplex Doppler of his bilateral lower extremities given his asymmetric edema and intermittent tachycardia and my suspicion that he is not the most active gentleman in terms of ambulation and also echocardiogram given his reported sleeping in a recliner, his extremity edema, history of elevated BNP (it was 507 in December of 2017) which I will check with morning labs here . We will check his calcium which was modestly elevated. He can eat a heart healthy diet once he dionicio up. I am going to hold his allopurinol for now. His medical surrogate is his , Miranda Swan. He certainly is going to be a flight risk and/or AMA risk given his recent actions. He currently wished to be a full code. [id number]/[facility] #: [id number] [facility]
--- NOTE | 2019-02-15 17:10 | ECHO ---
*[facility]* [place] [address] Fax #: [phone] Transthoracic Echocardiogram Patient: Zan Swan : 1930 Study Date: 02/15/2019 Age: 88 Gender: M HR: 64 bpm Height: 72 in /182.9 cm BSA: 1.95 m^2 Weight: 161.7 lb /73.5 kg BMI: 22 kg/m^2 *Assistant Professor Of Chemistry: Delilah Darby [facility] *Referring Physician: * Addy Rey *Reading Physician: * Anne Sanches MD Indications: SOB. Edema. History: Atrial fibrillation. Chronic obstructive pulmonary disease. Risk factors: Hypertension. Conclusions Summary: - Left ventricle: The cavity size is normal. Wall thickness is mildly to moderately increased. Systolic function is normal. The estimated ejection fraction is 60-65%. Doppler parameters are consistent with elevated ventricular end-diastolic filling pressure. - Right ventricle: Systolic function is normal. - Left atrium: The atrium is moderately to severely dilated. - Right atrium: The atrium is moderately to severely dilated. - Mitral valve: The Mitral valve annulus appears calcified. The leaflets are mildly calcified. There is trace to mild regurgitation. The valve area is 2.3 cm^2. - Aortic valve: The findings are consistent with very mild stenosis. The mean systolic gradient is 7.0 mm Hg. The LVOT to aortic valve VTI ratio is 0.7. The valve area by the velocity-time integral method is 2.00 cm^2. The valve area by the peak velocity method is 2.20 cm^2. - No prior echocardiogram to compare. Study data: Transthoracic echocardiogram. Procedure: Transthoracic echocardiography was performed. Image quality was adequate. The study was technically limited due to chest wall deformity and COPD. Complete 2D, spectral Doppler, and color flow Doppler. Location: Bedside. Patient status: Inpatient. Patient room number: 406. Rhythm: Atrial fibrillation. Findings Left ventricle: The cavity size is normal. Wall thickness is mildly to moderately increased. Systolic function is normal. The estimated ejection fraction is 60-65%. Wall motion is normal; there are no regional wall motion abnormalities. Left ventricular diastolic function parameters are indeterminate. Doppler parameters are consistent with elevated ventricular end-diastolic filling pressure. Right ventricle: Not well visualized. The cavity size is normal. Systolic function is normal. Left atrium: The atrium is moderately to severely dilated. Right atrium: The atrium is moderately to severely dilated. Mitral valve: The Mitral valve annulus appears calcified. The leaflets are mildly calcified. There is trace to mild regurgitation. Aortic valve: The leaflets are mildly thickened. The findings are consistent with very mild stenosis. There is no significant regurgitation. Tricuspid valve: Not well visualized. There is no significant regurgitation. Pulmonic valve: Not well visualized. There is no significant regurgitation. Aorta: The aortic root appears normal. Pericardium: A trace pericardial effusion is identified. Pulmonary arteries: Not well visualized. Systolic pressure can not be accurately estimated. Systemic veins: Inferior vena cava: Not well visualized. Measurements Left ventricle Value Ref Right atrium continued Value Ref MARJORIE, LAX 4.2 cm 4.2 - 5.8 ML dim, ES, A4C (H) 5.0 cm 2.6 - 4.4 ESD, LAX 2.8 cm 2.5 - 4.0 Estimated RAP 8 mm Hg --------- FS, LAX 33 % 25 - 43 PW, ED, LAX (H) 1.3 cm 0.6 - 1.0 Aortic valve Value Ref EF 62 % 52 - 72 Marilynn diam, ED 2.0 cm --------- E', lat marilynn, TDI (L) 5.7 cm/sec >=10.0 Peak v, S 1.7 m/sec -- ------- E/e', lat marilynn, 16 VTI, S 40.0 cm ----- ---- TDI Mean grad, S 7.0 mm Hg --------- E', med marilynn, TDI (L) 4.4 cm/sec >=7.0 Peak grad, S 11.6 mm Hg -- ------- E/e', med marilynn, 21 LVOT/AV, VTI ratio 0.7 ----- ---- TDI MARTHA, VTI 2.00 cm^2 --------- E', avg, TDI 5.1 cm/sec MARTHA, Vmax 2.20 cm^2 ----- ---- E/e', avg, TDI (H) 19 <=14 Mitral valve Value Ref LVOT Value Ref Peak E 0.94 m/sec --------- Diam, S 2.00 cm Decel time 269 ms --------- Area 3.1 cm^2 PHT 106 ms --------- Peak rafa, S 1.2 m/sec Mean grad, D 1.0 mm Hg --------- VTI, S 26.0 cm Peak grad, D 5.0 mm Hg --------- Peak grad, S 6 mm Hg MVA, PHT 2.1 cm^2 --------- Mean grad, S 3 mm Hg Pulmonic valve Value Ref Ventricular septum Value Ref Peak v, S 0.65 m/sec --------- IVS, ED (H) 1.6 cm 0.6 - 1.0 Peak grad, S 2.0 mm Hg --------- Right ventricle Value Ref Aortic root Value Ref MARJORIE, LAX 2.6 cm Root diam 3.0 cm <4.1 Left atrium Value Ref Ascending aorta Value Ref AP dim, ES (H) 4.30 cm 3.00 - AAo AP diam, S 2.8 cm --------- 4.00 ML dim, A4C 4.0 cm Decending aorta Value Ref SI dim, A4C 7.0 cm Saeed peak rafa 0.34 m/sec --------- Vol/bsa, ES, A/L (H) 49 ml/m^2 16 - 34 Right atrium Value Ref SI dim, ES (H) 6.6 cm 3.4 - 5.3 Legend: (L) and (H) juma values outside specified reference range. Prepared and electronically signed by Anne Sanches MD 02/15/2019 17:10
[2019-02-15] MEDS: Azithromycin TAB* 250 MG PO SCH (17:46)
[2019-02-15] MEDS: SPIRIVA Respimat* (tiotropium) 2.5 mcg/inh Inhaler INH SCH (17:51)
[2019-02-15] MEDS ORDERED: cloNIDine TAB* 0.1 MG PO ONE (19:51)
[2019-02-15] MEDS: cefTRIAXone(*) 1 GM in NS 0.9% 50 ML* 50 ML IVPB SCH (20:07)
[2019-02-16] MEDS: Albuterol HFA INHALER* 8 gm MDI INH SCH (07:40)
[2019-02-16] MEDS: Mometasone/Formoter 200/5 MDI INH SCH ×2 (07:41→19:27)
[2019-02-16] MEDS: Cholecalciferol TAB* 1000 UNITS PO SCH (08:23)
[2019-02-16] MEDS: Aspirin EC TAB* 81 MG TAB.EC PO SCH (08:23)
[2019-02-16] MEDS: cloNIDine TAB* 0.1 MG PO SCH ×2 (08:23→22:09)
[2019-02-16] MEDS: Cetirizine* 10 MG TAB PO SCH (08:23)
[2019-02-16] MEDS: Terazosin CAP* 5 MG PO SCH (08:23)
[2019-02-16] MEDS: Chlorthalidone TAB* 50 MG PO SCH (08:23)
[2019-02-16] MEDS: Apixaban* 5 MG TAB PO SCH ×2 (08:24→21:13)
[2019-02-16] MEDS: clonazePAM TAB(*) 0.5 MG PO PRN (08:25)
[2019-02-16] MEDS: SPIRIVA Respimat* (tiotropium) 2.5 mcg/inh Inhaler INH SCH (11:19)
[2019-02-16] MEDS: Azithromycin TAB* 250 MG PO SCH (17:47)
[2019-02-16] MEDS: Albuterol HFA INHALER* 8 gm MDI INH PRN (17:47)
--- NOTE | 2019-02-16 18:32 | PN ---
Subjective Date of Service: 02/16/19 Interval History: Pt is feeling well. He denies any pain or SOB. He states his breathing is good. He has been tired earlier today. Nursing notes that when the patient is sleeping his HR has been dropping into the high 20-30's. Objective Active Medications: Albuterol (Ventolin Hfa Inhaler*) 1 puff INH Q4H PRN PRN Reason: SHORTNESS OF BREATH Last Admin: 02/16/19 17:47 Dose: 1 puff Apixaban (Eliquis*) 5 mg PO BID [facility] Last Admin: 02/16/19 08:24 Dose: 5 mg Aspirin (Aspirin Ec Tab*) 81 mg PO DAILY [facility] Last Admin: 02/16/19 08:23 Dose: 81 mg Azithromycin (Zithromax Tab*) 250 mg PO 1800 [facility] Last Admin: 02/16/19 17:47 Dose: 250 mg Benzonatate (Tessalon Cap*) 200 mg PO TID PRN PRN Reason: COUGH Last Admin: 02/15/19 20:07 Dose: 200 mg Cetirizine HCl (Zyrtec*) 10 mg PO DAILY [facility] Last Admin: 02/16/19 08:23 Dose: 10 mg Chlorthalidone (Hygroton Tab*) 25 mg PO DAILY [facility] Last Admin: 02/16/19 08:23 Dose: 25 mg Cholecalciferol (Vitamin D Tab*) 2,000 units PO DAILY [facility] Last Admin: 02/16/19 08:23 Dose: 2,000 units Clonidine HCl (Catapres Tab*) 0.1 mg PO BID [facility] Ceftriaxone Sodium 1 gm/ (Sodium Chloride) 50 mls @ 100 mls/hr IVPB Q24H [facility] Last Admin: 02/15/19 20:07 Dose: 100 mls/hr Mometasone Furoate/Formoterol Fumar (Dulera 200/5 Mdi*) 2 puff INH BID [facility] Last Admin: 02/16/19 07:41 Dose: 2 puff Terazosin HCl (Hytrin Cap*) 5 mg PO DAILY [facility] Last Admin: 02/16/19 08:23 Dose: 5 mg Tiotropium [place] (Spiriva Respimat 2.5 Mcg) 2 puff INH DAILY [facility] Vital Signs - 8 hr 02/16/19 02/16/19 02/16/19 10:25 11:15 12:25 Temperature 98.0 F Pulse Rate 50 Respiratory 16 18 16 Rate Blood Pressure 123/50 (mmHg) O2 Sat by Pulse 95 Oximetry 02/16/19 02/16/19 02/16/19 13:52 15:15 18:23 Temperature 97.1 F 97.2 F 97.5 F Pulse Rate 52 48 68 Respiratory 16 20 20 Rate Blood Pressure 146/73 104/53 136/47 (mmHg) O2 Sat by Pulse 100 98 100 Oximetry Oxygen Devices in Use Now: None Appearance: Elderly male sitting up in bed, NAD Eyes: No Scleral Icterus Ears/Nose/Mouth/Throat: Mucous Membranes Moist Respiratory: Symmetrical Chest Expansion and Respiratory Effort, Clear to Auscultation - slightly diminished Cardiovascular: NL Sounds; No Murmurs; No JVD - bradycardic, slightly irregular , No Edema Abdominal: NL Sounds; No Tenderness; No Distention Extremities: No Clubbing, Cyanosis Skin: - - several abrasions and bruises on arms/legs Neurological: Alert and Oriented x 3 Result Diagrams: 02/15/19 06:45 02/15/19 06:45 Assess/Plan/Problems-Billing Mr Swan is an 88 yo M who has a h/o questionable COPD, alcoholism, HTN and PAF who presented to the ER after falling twice at home and was admitted to treat a possible pneumonia and have PT eval. - Patient Problems (1) Bradycardia Current Visit: Yes Status: Acute Code(s): R00.1 - BRADYCARDIA, UNSPECIFIED SNOMED Code(s): 61865676 Comment: Pt bradycardic with sleep. He is in afib. Will cut back on his clonidine and see if that helps his bradycardia. Will need to watch BP with the reduction. (2) Pneumonia Current Visit: Yes Status: Acute Code(s): J18.9 - PNEUMONIA, UNSPECIFIED ORGANISM SNOMED Code(s): 593623963 Comment: Pt dx with pneumonia 01/30 and sent from urgent care on levaquin. He states he only took 3 days worth. Continue azithromycin and ceftriaxone. (3) Fall Current Visit: Yes Status: Acute Comment: I question if this may be secondary to his alcoholism. ? neuropathy. PT eval to happen tomorrow- didnt happen today due to bradycardia. (4) Alcoholism Current Visit: Yes Status: Acute Code(s): F10.20 - ALCOHOL DEPENDENCE, UNCOMPLICATED SNOMED Code(s): 8803688 Comment: Continue WAM monitoring. He is not scoring high enough to need benzodiazepine coverage. Continue klonopin prn for anxiety and this may also be helping any potential withdrawal. His does not know how much he drinks/ day. (5) COPD (chronic obstructive pulmonary disease) Current Visit: Yes Status: Acute Code(s): J44.9 - CHRONIC OBSTRUCTIVE PULMONARY DISEASE, UNSPECIFIED SNOMED Code(s): 55212912 Comment: This was a questionable diagnosis given from urgent care. The patient may benefit from outpatient PFTs. (6) HTN (hypertension) Current Visit: Yes Status: Acute Code(s): I10 - ESSENTIAL (PRIMARY) HYPERTENSION SNOMED Code(s): 52277771 Comment: BP relatively controlled at this time but will need to watch closely with reduction in clonidine dosing. (7) DVT prophylaxis Current Visit: Yes Status: Acute Code(s): Z29.9 - ENCOUNTER FOR PROPHYLACTIC MEASURES, UNSPECIFIED SNOMED Code(s): 930929357 Comment: mehdi (8) Full code status Current Visit: Yes Status: Acute Code(s): Z78.9 - OTHER SPECIFIED HEALTH STATUS SNOMED Code(s): 344996959
[2019-02-16] MEDS: cefTRIAXone(*) 1 GM in NS 0.9% 50 ML* 50 ML IVPB SCH (21:12)
[2019-02-17] MEDS: clonazePAM TAB(*) 0.5 MG PO PRN ×2 (00:02→17:46)
[2019-02-17] MEDS: SPIRIVA Respimat* (tiotropium) 2.5 mcg/inh Inhaler INH SCH (07:32)
[2019-02-17] MEDS: Albuterol HFA INHALER* 8 gm MDI INH PRN ×2 (07:33→18:14)
[2019-02-17] MEDS: Mometasone/Formoter 200/5 MDI INH SCH ×2 (08:12→21:03)
[2019-02-17] MEDS: Aspirin EC TAB* 81 MG TAB.EC PO SCH (09:54)
[2019-02-17] MEDS: Chlorthalidone TAB* 50 MG PO SCH (09:54)
[2019-02-17] MEDS: Cholecalciferol TAB* 1000 UNITS PO SCH (09:54)
[2019-02-17] MEDS: Terazosin CAP* 5 MG PO SCH (09:54)
[2019-02-17] MEDS: Apixaban* 5 MG TAB PO SCH ×2 (09:54→20:53)
[2019-02-17] MEDS: Cetirizine* 10 MG TAB PO SCH (09:54)
[2019-02-17] MEDS: cloNIDine TAB* 0.1 MG PO SCH ×2 (09:54→21:04)
[2019-02-17 13:55] LABS: Urine Appearance Clear; Urine Bacteria Absent (Absent); Urine Bilirubin Negative (Negative); Urine Blood 3+ (Negative); Urine Color Yellow; Urine Glucose Negative (Negative); Urine Ketones Negative (Negative); Urine Nitrite Negative (Negative); Urine Protein Negative (Negative); Urine Red Blood Cell 3+(>10/hpf) (Absent); Urine Specific Gravity 1.015 (1.010-1.030); Urine Urobilinogen Negative (Negative); Urine White Blood Cell 1+(6-10/hpf) (Absent)
--- NOTE | 2019-02-17 17:15 | PN ---
Subjective Date of Service: 02/17/19 Interval History: Pt is feeling well today. He tells me he drinks 1/2pint of vodka/day. He states he is now going to stop. He denies any SOB or pain. He does state he has to go to the bathroom. He has to urinate very frequently and only goes very small amounts of urine. Objective Active Medications: Albuterol (Ventolin Hfa Inhaler*) 1 puff INH Q4H PRN PRN Reason: SHORTNESS OF BREATH Last Admin: 02/17/19 07:33 Dose: 1 puff Apixaban (Eliquis*) 5 mg PO BID [facility] Last Admin: 02/17/19 09:54 Dose: 5 mg Aspirin (Aspirin Ec Tab*) 81 mg PO DAILY [facility] Last Admin: 02/17/19 09:54 Dose: 81 mg Azithromycin (Zithromax Tab*) 250 mg PO 1800 [facility] Last Admin: 02/16/19 17:47 Dose: 250 mg Benzonatate (Tessalon Cap*) 200 mg PO TID PRN PRN Reason: COUGH Last Admin: 02/15/19 20:07 Dose: 200 mg Cetirizine HCl (Zyrtec*) 10 mg PO DAILY [facility] Last Admin: 02/17/19 09:54 Dose: 10 mg Chlorthalidone (Hygroton Tab*) 25 mg PO DAILY [facility] Last Admin: 02/17/19 09:54 Dose: 25 mg Cholecalciferol (Vitamin D Tab*) 2,000 units PO DAILY [facility] Last Admin: 02/17/19 09:54 Dose: 2,000 units Clonazepam (Klonopin Tab(*)) 0.5 mg PO BID PRN PRN Reason: ANXIETY Last Admin: 02/17/19 00:02 Dose: 0.5 mg Clonidine HCl (Catapres Tab*) 0.1 mg PO BID [facility] Last Admin: 02/17/19 09:54 Dose: 0.1 mg Ceftriaxone Sodium 1 gm/ (Sodium Chloride) 50 mls @ 100 mls/hr IVPB Q24H [facility] Last Admin: 02/16/19 21:12 Dose: 100 mls/hr Mometasone Furoate/Formoterol Fumar (Dulera 200/5 Mdi*) 2 puff INH BID [facility] Last Admin: 02/17/19 08:12 Dose: Not Given Tamsulosin HCl (Flomax Cap*) 0.4 mg PO BEDTIME [facility] Terazosin HCl (Hytrin Cap*) 5 mg PO DAILY [facility] Last Admin: 02/17/19 09:54 Dose: 5 mg Tiotropium [place] (Spiriva Respimat 2.5 Mcg) 2 puff INH DAILY [facility] Last Admin: 02/17/19 07:32 Dose: 2 puff Vital Signs - 8 hr 02/17/19 11:15 Temperature 97.8 F Pulse Rate 65 Respiratory 20 Rate Blood Pressure 142/49 (mmHg) O2 Sat by Pulse 98 Oximetry Oxygen Devices in Use Now: None Appearance: Elderly male sitting up in a chair, NAD Eyes: No Scleral Icterus Ears/Nose/Mouth/Throat: Mucous Membranes Moist Cardiovascular: NL Sounds; No Murmurs; No JVD, RRR, No Edema Abdominal: NL Sounds; No Tenderness; No Distention Extremities: No Clubbing, Cyanosis Skin: No Nodules or Sclerosis, - - scattered bruises and abrasions Neurological: Alert and Oriented x 3 Result Diagrams: 02/15/19 06:45 02/15/19 06:45 Assess/Plan/Problems-Billing Mr Swan is an 88 yo M who has a h/o questionable COPD, alcoholism, HTN and PAF who presented to the ER after falling twice at home and was admitted to treat a possible pneumonia and have PT eval. - Patient Problems (1) Urinary retention Current Visit: Yes Status: Acute Code(s): R33.9 - RETENTION OF URINE, UNSPECIFIED SNOMED Code(s): 071340486 Comment: Today pt very symptomatic with frequent small urinations. Bladder scan done and showed a large residual. Parker placed. Now with gross hematuria- likely secondary to trauma and being on eliquis. Monitor. I have started flomax for presumed BPH. (2) Bradycardia Current Visit: Yes Status: Acute Code(s): R00.1 - BRADYCARDIA, UNSPECIFIED SNOMED Code(s): 93030534 Comment: Pt bradycardic with sleep yesterday. Today pt not bradycardic into the 30's like yesterday. Continue to monitor on tele with reduced dose of clonidine. (3) Pneumonia Current Visit: Yes Status: Acute Code(s): J18.9 - PNEUMONIA, UNSPECIFIED ORGANISM SNOMED Code(s): 473936971 Comment: Today is D#3 of ceftriaxone and azithromcyin. He should be treated for 7 days total but can be changed to oral when ready to leave. (4) Fall Current Visit: Yes Status: Acute Comment: I question if this may be secondary to his alcoholism. ? neuropathy. Pt got up to bathroom with me today as a 1 assist. When PT saw the patient he was much weaker and seemed slightly "woozy" per PT. (5) Alcoholism Current Visit: Yes Status: Acute Code(s): F10.20 - ALCOHOL DEPENDENCE, UNCOMPLICATED SNOMED Code(s): 0575700 Comment: Continue WAM monitoring. He has not scored very high at this time but nursing notes this afternoon he was slightly diaphoretic and anxious. (6) COPD (chronic obstructive pulmonary disease) Current Visit: Yes Status: Acute Code(s): J44.9 - CHRONIC OBSTRUCTIVE PULMONARY DISEASE, UNSPECIFIED SNOMED Code(s): 39924484 Comment: This was a questionable diagnosis given from urgent care. The patient may benefit from outpatient PFTs. (7) HTN (hypertension) Current Visit: Yes Status: Acute Code(s): I10 - ESSENTIAL (PRIMARY) HYPERTENSION SNOMED Code(s): 10327328 Comment: BP is mildly elevated with reduced dose of clonidine. Will just monitor for now but if his BP goes up further can consider adding amlodipine. (8) DVT prophylaxis Current Visit: Yes Status: Acute Code(s): Z29.9 - ENCOUNTER FOR PROPHYLACTIC MEASURES, UNSPECIFIED SNOMED Code(s): 348975006 Comment: mehdi (9) Full code status Current Visit: Yes Status: Acute Code(s): Z78.9 - OTHER SPECIFIED HEALTH STATUS SNOMED Code(s): 109612474
[2019-02-17] MEDS: Azithromycin TAB* 250 MG PO SCH (17:46)
[2019-02-17] MEDS: cefTRIAXone(*) 1 GM in NS 0.9% 50 ML* 50 ML IVPB SCH (20:52)
[2019-02-17] MEDS: Tamsulosin CAP* 0.4 MG PO SCH (20:53)
[2019-02-18 06:43] LABS: Hematocrit 38 % (42-52); Mean Corpuscular HGB Conc 34 g/dL (31-36); Mean Corpuscular Hemoglobin 32 pg (27-31); Mean Corpuscular Volume 95 fL (80-94); Mean Platelet Volume 10.6 fL (7.4-10.4); Platelet Count 167 10^3/uL (150-450); Red Blood Count 4.05 10^6 /uL (4.18-5.48); Red Cell Distribution Width 15 % (10-15); White Blood Count 8.1 10^3/uL (3.5-10.8)
[2019-02-18 07:00] LABS: BUN/Creatinine Ratio 36.5 (8-20); EGFR African American 103.4 (>60); EGFR Non-African American 85.5 (>60); Potassium 3.8 mmol/L (3.5-5.0)
[2019-02-18] MEDS: SPIRIVA Respimat* (tiotropium) 2.5 mcg/inh Inhaler INH SCH (08:53)
[2019-02-18] MEDS: Mometasone/Formoter 200/5 MDI INH SCH ×2 (08:55→20:04)
[2019-02-18] MEDS: Aspirin EC TAB* 81 MG TAB.EC PO SCH (09:01)
[2019-02-18] MEDS: Apixaban* 5 MG TAB PO SCH ×2 (09:01→20:25)
[2019-02-18] MEDS: Terazosin CAP* 5 MG PO SCH (09:01)
[2019-02-18] MEDS: cloNIDine TAB* 0.1 MG PO SCH ×2 (09:01→20:25)
[2019-02-18] MEDS: Cholecalciferol TAB* 1000 UNITS PO SCH (09:01)
[2019-02-18] MEDS: Cetirizine* 10 MG TAB PO SCH (09:01)
[2019-02-18] MEDS: Chlorthalidone TAB* 50 MG PO SCH (09:02)
--- NOTE | 2019-02-18 17:02 | PN ---
Subjective Date of Service: 02/18/19 Interval History: Pt still feels very weak. PT meganal deemed pt to likely benefit from STR. Has Parker cath in place. Seen with and sister by the bedside who agree to STR Objective Active Medications: Albuterol (Ventolin Hfa Inhaler*) 1 puff INH Q4H PRN PRN Reason: SHORTNESS OF BREATH Last Admin: 02/17/19 18:14 Dose: 1 puff Apixaban (Eliquis*) 5 mg PO BID [facility] Last Admin: 02/18/19 09:01 Dose: 5 mg Aspirin (Aspirin Ec Tab*) 81 mg PO DAILY [facility] Last Admin: 02/18/19 09:01 Dose: 81 mg Azithromycin (Zithromax Tab*) 250 mg PO 1800 [facility] Last Admin: 02/17/19 17:46 Dose: 250 mg Benzonatate (Tessalon Cap*) 200 mg PO TID PRN PRN Reason: COUGH Last Admin: 02/15/19 20:07 Dose: 200 mg Cetirizine HCl (Zyrtec*) 10 mg PO DAILY [facility] Last Admin: 02/18/19 09:01 Dose: 10 mg Chlorthalidone (Hygroton Tab*) 25 mg PO DAILY [facility] Last Admin: 02/18/19 09:02 Dose: 25 mg Cholecalciferol (Vitamin D Tab*) 2,000 units PO DAILY [facility] Last Admin: 02/18/19 09:01 Dose: 2,000 units Clonazepam (Klonopin Tab(*)) 0.5 mg PO BID PRN PRN Reason: ANXIETY Last Admin: 02/17/19 17:46 Dose: 0.5 mg Clonidine HCl (Catapres Tab*) 0.1 mg PO BID [facility] Last Admin: 02/18/19 09:01 Dose: 0.1 mg Ceftriaxone Sodium 1 gm/ (Sodium Chloride) 50 mls @ 100 mls/hr IVPB Q24H [facility] Last Admin: 02/17/19 20:52 Dose: 100 mls/hr Mometasone Furoate/Formoterol Fumar (Dulera 200/5 Mdi*) 2 puff INH BID [facility] Last Admin: 02/18/19 08:55 Dose: Not Given Tamsulosin HCl (Flomax Cap*) 0.4 mg PO BEDTIME [facility] Last Admin: 02/17/19 20:53 Dose: 0.4 mg Terazosin HCl (Hytrin Cap*) 5 mg PO DAILY [facility] Last Admin: 02/18/19 09:01 Dose: 5 mg Tiotropium [place] (Spiriva Respimat 2.5 Mcg) 2 puff INH DAILY [facility] Last Admin: 02/18/19 08:53 Dose: 2 puff Vital Signs - 8 hr 02/18/19 11:15 Temperature 98.2 F Pulse Rate 82 Respiratory 16 Rate Blood Pressure 145/59 (mmHg) O2 Sat by Pulse 100 Oximetry Oxygen Devices in Use Now: None Appearance: 88 yo M in NAD, aAOx3 Eyes: No Scleral Icterus, PERRLA Ears/Nose/Mouth/Throat: NL Teeth, Lips, Gums, Mucous Membranes Moist Neck: NL Appearance and Movements; NL JVP, Trachea Midline Respiratory: Symmetrical Chest Expansion and Respiratory Effort, Clear to Auscultation Cardiovascular: NL Sounds; No Murmurs; No JVD, RRR Abdominal: NL Sounds; No Tenderness; No Distention, No Hepatosplenomegaly Lymphatic: No Cervical Adenopathy Extremities: No Edema, No Clubbing, Cyanosis Skin: - - muliple abrasions in various stages of healing on b/l LE's. skin tear on R elbow Neurological: Alert and Oriented x 3, NL Muscle Strength and Tone Result Diagrams: 02/18/19 06:25 02/18/19 06:25 Microbiology and Other Data: Microbiology 02/17/19 12:37 Urine Culture - Final Urine No Growth (<1,000 CFU/mL) Assess/Plan/Problems-Billing Mr Swan is an 88 yo M who has a h/o questionable COPD, alcoholism, HTN and PAF who presented to the ER after falling twice at home and was admitted to treat a possible pneumonia and have PT eval. - Patient Problems (1) Urinary retention Comment: On 02/17 Bladder scan done and showed a large residual. Parker placed. Flomax started for presumed BPH. (2) Alcoholism Comment: Continue WAM monitoring. will probably d/c tomorrow (3) Bradycardia Comment: Pt bradycardic with sleep 02/16. Continue to monitor on tele with reduced dose of clonidine. (4) COPD (chronic obstructive pulmonary disease) Comment: This was a questionable diagnosis given from urgent care. The patient may benefit from outpatient PFTs. (5) Fall Comment: I question if this may be secondary to his alcoholism. ? neuropathy. Pt agrees to STR (6) HTN (hypertension) Comment: BP is mildly elevated with reduced dose of clonidine. Will just monitor for now but if his BP goes up further can consider adding amlodipine. (7) Pneumonia Comment: Today is D#4 of ceftriaxone and azithro. He should be treated for 7 days total but can be changed to oral when ready to leave. (8) DVT prophylaxis Comment: eliquis Status and Disposition: inpatient, awaiting STR
[2019-02-18] MEDS: Azithromycin TAB* 250 MG PO SCH (18:02)
[2019-02-18] MEDS: Tamsulosin CAP* 0.4 MG PO SCH (20:23)
[2019-02-18] MEDS: clonazePAM TAB(*) 0.5 MG PO PRN (20:24)
[2019-02-18] MEDS: cefTRIAXone(*) 1 GM in NS 0.9% 50 ML* 50 ML IVPB SCH (20:30)
[2019-02-18] MEDS: Melatonin 3 MG TAB PO PRN (22:33)
[2019-02-19] MEDS: SPIRIVA Respimat* (tiotropium) 2.5 mcg/inh Inhaler INH SCH (08:15)
[2019-02-19] MEDS: Mometasone/Formoter 200/5 MDI INH SCH ×2 (08:15→20:07)
[2019-02-19] MEDS: cloNIDine TAB* 0.1 MG PO SCH ×2 (08:30→20:15)
[2019-02-19] MEDS: Cholecalciferol TAB* 1000 UNITS PO SCH (08:30)
[2019-02-19] MEDS: Apixaban* 5 MG TAB PO SCH ×2 (08:30→20:15)
[2019-02-19] MEDS: Cetirizine* 10 MG TAB PO SCH (08:30)
[2019-02-19] MEDS: Chlorthalidone TAB* 50 MG PO SCH (08:31)
[2019-02-19] MEDS: Terazosin CAP* 5 MG PO SCH (08:31)
[2019-02-19] MEDS: Aspirin EC TAB* 81 MG TAB.EC PO SCH (08:31)
[2019-02-19] MEDS: Polyethylene Glycol 3350* 17 GM PACKET PO SCH (14:28)
--- NOTE | 2019-02-19 14:44 | PN ---
Subjective Date of Service: 02/19/19 Interval History: Pt feels well, denies SOB or cough. Is constipated today Objective Active Medications: Albuterol (Ventolin Hfa Inhaler*) 1 puff INH Q4H PRN PRN Reason: SHORTNESS OF BREATH Last Admin: 02/17/19 18:14 Dose: 1 puff Apixaban (Eliquis*) 5 mg PO BID [facility] Last Admin: 02/19/19 08:30 Dose: 5 mg Aspirin (Aspirin Ec Tab*) 81 mg PO DAILY [facility] Last Admin: 02/19/19 08:31 Dose: 81 mg Azithromycin (Zithromax Tab*) 250 mg PO 1800 [facility] Last Admin: 02/18/19 18:02 Dose: 250 mg Benzonatate (Tessalon Cap*) 200 mg PO TID PRN PRN Reason: COUGH Last Admin: 02/15/19 20:07 Dose: 200 mg Cetirizine HCl (Zyrtec*) 10 mg PO DAILY [facility] Last Admin: 02/19/19 08:30 Dose: 10 mg Chlorthalidone (Hygroton Tab*) 25 mg PO DAILY [facility] Last Admin: 02/19/19 08:31 Dose: 25 mg Cholecalciferol (Vitamin D Tab*) 2,000 units PO DAILY [facility] Last Admin: 02/19/19 08:30 Dose: 2,000 units Clonazepam (Klonopin Tab(*)) 0.5 mg PO BID PRN PRN Reason: ANXIETY Last Admin: 02/18/19 20:24 Dose: 0.5 mg Clonidine HCl (Catapres Tab*) 0.1 mg PO BID [facility] Last Admin: 02/19/19 08:30 Dose: 0.1 mg Ceftriaxone Sodium 1 gm/ (Sodium Chloride) 50 mls @ 100 mls/hr IVPB Q24H [facility] Last Admin: 02/18/19 20:30 Dose: 100 mls/hr Melatonin (Melatonin) 3 mg PO BEDTIME PRN PRN Reason: SLEEP Last Admin: 02/18/19 22:33 Dose: 3 mg Mometasone Furoate/Formoterol Fumar (Dulera 200/5 Mdi*) 2 puff INH BID [facility] Last Admin: 02/19/19 08:15 Dose: Not Given Polyethylene Glycol/Electrolytes (Miralax*) 17 gm PO DAILY [facility] Last Admin: 02/19/19 14:28 Dose: 17 gm Tamsulosin HCl (Flomax Cap*) 0.4 mg PO BEDTIME [facility] Last Admin: 02/18/19 20:23 Dose: 0.4 mg Terazosin HCl (Hytrin Cap*) 5 mg PO DAILY [facility] Last Admin: 02/19/19 08:31 Dose: 5 mg Tiotropium [place] (Spiriva Respimat 2.5 Mcg) 2 puff INH DAILY [facility] Last Admin: 02/19/19 08:15 Dose: 2 puff Vital Signs - 8 hr 02/19/19 02/19/19 02/19/19 07:31 08:00 08:17 Temperature 98.4 F Pulse Rate 68 73 Respiratory 20 18 16 Rate Blood Pressure 154/66 (mmHg) O2 Sat by Pulse 96 97 Oximetry 02/19/19 11:23 Temperature 97.8 F Pulse Rate 75 Respiratory 20 Rate Blood Pressure 130/53 (mmHg) O2 Sat by Pulse 96 Oximetry Oxygen Devices in Use Now: None Appearance: 88 yo M in nAD, AAOx3 Eyes: No Scleral Icterus, PERRLA Ears/Nose/Mouth/Throat: NL Teeth, Lips, Gums, Mucous Membranes Moist Neck: NL Appearance and Movements; NL JVP, Trachea Midline Respiratory: Symmetrical Chest Expansion and Respiratory Effort, Clear to Auscultation Cardiovascular: - - irregular Abdominal: NL Sounds; No Tenderness; No Distention, No Hepatosplenomegaly Lymphatic: No Cervical Adenopathy Extremities: No Clubbing, Cyanosis, - - pedal edema Skin: No Nodules or Sclerosis, - - scattered excorations and scrathes on b/l LE' s and R elbow skin tear Neurological: Alert and Oriented x 3, NL Muscle Strength and Tone Result Diagrams: 02/18/19 06:25 02/18/19 06:25 Microbiology and Other Data: Microbiology 02/17/19 12:37 Urine Culture - Final Urine No Growth (<1,000 CFU/mL) Assess/Plan/Problems-Billing Mr Swan is an 88 yo M who has a h/o questionable COPD, alcoholism, HTN and PAF who presented to the ER after falling twice at home and was admitted to treat a possible pneumonia and have PT eval. - Patient Problems (1) Urinary retention Comment: On 02/17 Bladder scan done and showed a large residual. Parker placed. Flomax started for presumed BPH. Pt will need to f/u with Dr. Heaton as outpatient. (2) Alcoholism Comment: No signs of withdrawal, d/c WAM monitoring. (3) Bradycardia Comment: Pt bradycardic with sleep 02/16. Continue to monitor on tele with reduced dose of clonidine. Resolved (4) COPD (chronic obstructive pulmonary disease) Comment: This was a questionable diagnosis given from urgent care. The patient may benefit from outpatient PFTs. (5) Fall Comment: I question if this may be secondary to his alcoholism. ? neuropathy. Pt agrees to STR (6) HTN (hypertension) Comment: BP is mildly elevated with reduced dose of clonidine. Will just monitor for now but if his BP goes up further can consider adding amlodipine. (7) Pneumonia Comment: Today is D#5 of ceftriaxone and azithro. He should be treated for 7 days total but can be changed to oral when ready to leave. (8) DVT prophylaxis Comment: eliquis Status and Disposition: inpatient, awaiting STR
[2019-02-19] MEDS: Azithromycin TAB* 250 MG PO SCH (17:56)
[2019-02-19] MEDS: cefTRIAXone(*) 1 GM in NS 0.9% 50 ML* 50 ML IVPB SCH (20:14)
[2019-02-19] MEDS: Tamsulosin CAP* 0.4 MG PO SCH (20:15)
[2019-02-19] MEDS: clonazePAM TAB(*) 0.5 MG PO PRN (20:15)
[2019-02-19] MEDS: Melatonin 3 MG TAB PO PRN (20:15)
[2019-02-20] MEDS: SPIRIVA Respimat* (tiotropium) 2.5 mcg/inh Inhaler INH SCH (08:08)
[2019-02-20] MEDS: Mometasone/Formoter 200/5 MDI INH SCH ×2 (08:08→19:46)
[2019-02-20] MEDS: Apixaban* 5 MG TAB PO SCH ×2 (08:38→20:04)
[2019-02-20] MEDS: Polyethylene Glycol 3350* 17 GM PACKET PO SCH (08:38)
[2019-02-20] MEDS: Cholecalciferol TAB* 1000 UNITS PO SCH (08:38)
[2019-02-20] MEDS: Cetirizine* 10 MG TAB PO SCH (08:38)
[2019-02-20] MEDS: Aspirin EC TAB* 81 MG TAB.EC PO SCH (08:38)
[2019-02-20] MEDS: Chlorthalidone TAB* 50 MG PO SCH (08:38)
[2019-02-20] MEDS: cloNIDine TAB* 0.1 MG PO SCH ×2 (08:39→20:04)
[2019-02-20] MEDS: Terazosin CAP* 5 MG PO SCH (08:39)
[2019-02-20] MEDS ORDERED: Magnesium Hydroxide LIQ* 30 ML UDC PO PRN (17:04)
[2019-02-20] MEDS ORDERED: Polyethylene Glycol 3350* 17 GM PACKET PO PRN (17:04)
[2019-02-20] MEDS ORDERED: Senna TAB 8.6 mg* TAB PO PRN (17:04)
[2019-02-20] MEDS: Magnesium Hydroxide LIQ* 30 ML UDC PO SCH (20:02)
[2019-02-20] MEDS: Melatonin 3 MG TAB PO PRN (20:03)
[2019-02-20] MEDS: clonazePAM TAB(*) 0.5 MG PO PRN (20:04)
[2019-02-20] MEDS: Docusate CAP* 100 MG PO SCH (20:04)
[2019-02-20] MEDS: Tamsulosin CAP* 0.4 MG PO SCH (20:04)
[2019-02-20] MEDS: cefTRIAXone(*) 1 GM in NS 0.9% 50 ML* 50 ML IVPB SCH (20:04)
--- NOTE | 2019-02-20 22:17 | DS ---
CC: Dr. Rain; Dr. Heaton; [facility] * DISCHARGE SUMMARY: DATE OF ADMISSION: 02/15/19 DATE OF PLANNED DISCHARGE: 02/21/19 PRIMARY CARE PROVIDER: Dr. Rain. DISPOSITION AT DISCHARGE: To [facility] [place]. CONDITION ON DISCHARGE: Stable. DISCHARGE DIAGNOSES: 1. Status post fall. 2. Community-acquired pneumonia. 3. Urinary retention. SECONDARY DIAGNOSES: 1. Paroxysmal atrial fibrillation, on Eliquis. 2. Hypertension. 3. Anxiety. 4. Possibility of chronic obstructive pulmonary disease. 5. Gout. 6. Hyperlipidemia. 7. Alcohol abuse. MEDICATIONS AT DISCHARGE: Include: 1. Albuterol inhaler on a p.r.n. basis. 2. Allopurinol 150 mg daily. 3. Eliquis 5 mg b.i.d. 4. Aspirin 81 mg daily. 5. Tessalon 200 mg t.i.d. p.r.n. 6. Chlorthalidone 25 mg daily. 7. Vitamin D3 2000 units daily. 8. Advair Diskus 500/50 one inhalation b.i.d. 9. Claritin 10 mg daily. 10. Potassium chloride 20 mEq daily. 11. Terazosin 5 mg daily. 12. Spiriva 1 inhalation daily. 13. Clonazepam 0.5 mg b.i.d. p.r.n. 14. Clonidine 0.1 mg b.i.d. 15. Melatonin 3 mg at bedtime. 16. MiraLAX 17 g daily. 17. Flomax 0.4 mg daily. LABORATORY DATA AND STUDIES PERFORMED DURING THE HOSPITAL STAY: Included: On , white blood cell count of 8.1, hemoglobin of 13.0, hematocrit of 38, MCV of 95, and platelets of 167. Sodium was 139, potassium of 3.8, chloride 104 , carbon dioxide 30, BUN 31, creatinine 0.85, calcium of 9.0. Alcohol level on 02/14/19 was 34. Venous Doppler studies of lower extremities on 02/15/19 were negative for DVT. Transthoracic echocardiogram performed on 02/15/19 showed EF of 60% to 65% with mild mitral regurgitation and mild aortic stenosis. Cervical spine CT obtained on 02/14/19, impression: "No cervical spine traumatic abnormalities. Moderate multilevel cervical spondylopathy." Portable chest x-ray obtained prior to the patient's admission on 02/14/19, impression: "COPD with pulmonary fibrotic changes." Microbiology test showed blood cultures were negative to date, urine cultures no growth. HOSPITALIZATION COURSE: Zan Swan is an 88-year-old male with history of significant alcohol use on a daily basis, who originally was found by his after he fell and was unable to get up on 02/14/19. brought him in to the emergency department where he was upset and signed out against medical advice. On 02/15/19, he was brought back in by who stated that after the patient got home, he was unable to ambulate and fell again. He was diagnosed with community- acquired pneumonia, treated with azithromycin and ceftriaxone. The 7th day of ceftriaxone treatment is on a day of discharge, planned on 02/21/19. He already completed azithromycin treatment. During the hospital stay, he did not have any symptoms of withdrawal, although it was reported that he drank on a daily basis 1 pint of gin. It was noted during his hospital stay that his postvoid residual was over a 1000 mL and Parker catheter was placed. After Parker catheter placement due to the patient being on Eliquis, significant amount of hematuria was noted that gradually resolved by the time of discharge. The patient's urine was straw colored. The patient had creatinine elevation at a level of 1.26 at admission that resolved to the level of 0.85 within a couple of days. The creatinine elevation may have been due to a urinary retention. By the time of discharge, he continues to use Parker catheter in place and the hospitalist service spoke with Dr. Heaton's office for followup. Dr. Heaton 's office is going to evaluate the patient's medical records and they will call the patient's mcc for setup a followup to evaluate the patient for discontinuation of Parker in the near future. The patient was started on Flomax and he continues to have a Parker catheter in place with which he is going to be discharged to [facility] [place] to which he was accepted for rehab at discharge. Planned discharge date is 02/21/19. PHYSICAL EXAM: Today showed blood pressure of 133/61, heart rate of 79 and irregularly irregular, respiratory rate 20, oxygen saturation 98% on room air, temperature 98.1. General: The patient is a pleasant 88-year-old male who is in no acute distress. The patient is alert and oriented x3. HEENT: Head: Atraumatic, normocephalic. Eyes: Pupils are equal and reactive to light and accommodation. Oropharynx clear. Mucosa moist. Neck: Supple. No JVD. No bruits bilaterally. Cardiovascular: Irregularly irregular rhythm. No murmur. Respiratory: Clear to auscultation bilaterally. Abdomen: Soft, nontender. Bowel sounds are present in all 4 quadrants. Extremities: There is no pedal edema. Pulses are +2 bilaterally. No clubbing or cyanosis. On neuro evaluation , speech clear. Cranial nerves II through XII grossly intact. Motor strength is 5/5 bilaterally. On evaluation of the skin, the patient has right elbow skin tear of approximately 4 cm in length that occurred after a fall at home. The patient has multiple excoriations and abrasions in bilateral lower extremities and various stages of ecchymoses. Please note that this is a short summary of the patient's hospital stay. Please refer to further medical records for details. TIME SPENT: Approximately 45 minutes was spent on the patient's discharge. [id number]/[facility] #: [id number] MTDIris
[2019-02-21] MEDS: Mometasone/Formoter 200/5 MDI INH SCH ×2 (08:15→19:41)
[2019-02-21] MEDS: SPIRIVA Respimat* (tiotropium) 2.5 mcg/inh Inhaler INH SCH (08:18)
[2019-02-21] MEDS: Polyethylene Glycol 3350* 17 GM PACKET PO SCH (09:21)
[2019-02-21] MEDS: cloNIDine TAB* 0.1 MG PO SCH ×2 (09:22→19:58)
[2019-02-21] MEDS: Chlorthalidone TAB* 50 MG PO SCH (09:22)
[2019-02-21] MEDS: Cholecalciferol TAB* 1000 UNITS PO SCH (09:22)
[2019-02-21] MEDS: Apixaban* 5 MG TAB PO SCH ×2 (09:22→19:55)
[2019-02-21] MEDS: Cetirizine* 10 MG TAB PO SCH (09:22)
[2019-02-21] MEDS: Docusate CAP* 100 MG PO SCH ×2 (09:22→19:57)
[2019-02-21] MEDS: Aspirin EC TAB* 81 MG TAB.EC PO SCH (09:22)
[2019-02-21] MEDS: Terazosin CAP* 5 MG PO SCH (09:22)
[2019-02-21] MEDS: Magnesium Hydroxide LIQ* 30 ML UDC PO SCH (09:27)
--- NOTE | 2019-02-21 17:31 | PN ---
Subjective Date of Service: 02/21/19 Interval History: Pt states he is feeling well today. He denies chest pain, cough, fever, chills. He states that he has had 4 loose stools today and denies abdominal pain, diarrhea. He has a naik in place. He has no other complaints today. Objective Active Medications: Albuterol (Ventolin Hfa Inhaler*) 1 puff INH Q4H PRN Apixaban (Eliquis*) 5 mg PO BID [facility] Aspirin (Aspirin Ec Tab*) 81 mg PO DAILY [facility] Benzonatate (Tessalon Cap*) 200 mg PO TID PRN Cetirizine HCl (Zyrtec*) 10 mg PO DAILY [facility] Chlorthalidone (Hygroton Tab*) 25 mg PO DAILY [facility] Cholecalciferol (Vitamin D Tab*) 2,000 units PO DAILY [facility] Clonazepam (Klonopin Tab(*)) 0.5 mg PO BID PRN Clonidine HCl (Catapres Tab*) 0.1 mg PO BID [facility] Docusate Sodium (Colace Cap*) 100 mg PO BID [facility] Ceftriaxone Sodium 1 gm/ (Sodium Chloride) 50 mls @ 100 mls/hr IVPB Q24H [facility] Magnesium Hydroxide (Milk Of Magnesia Liq*) 30 ml PO BID PRN Melatonin (Melatonin) 3 mg PO BEDTIME PRN Mometasone Furoate/Formoterol Fumar (Dulera 200/5 Mdi*) 2 puff INH BID [facility] Polyethylene Glycol/Electrolytes (Miralax*) 17 gm PO DAILY [facility] Polyethylene Glycol/Electrolytes (Miralax*) 17 gm PO DAILY [facility] [place]na (Senokot 8.6 Mg Tab*) 1 tab PO BEDTIME PRN Tamsulosin HCl (Flomax Cap*) 0.4 mg PO BEDTIME [facility] Terazosin HCl (Hytrin Cap*) 5 mg PO DAILY [facility] Tiotropium [place] (Spiriva Respimat 2.5 Mcg) 2 puff INH DAILY [facility] Vital Signs - 8 hr 02/21/19 02/21/19 11:47 15:21 Temperature 98.4 F 98.2 F Pulse Rate 73 66 Respiratory 20 20 Rate Blood Pressure 131/70 135/56 (mmHg) O2 Sat by Pulse 98 99 Oximetry Oxygen Devices in Use Now: None Appearance: Pt is sitting in chair with LE elevated. He appears comfortable, in no acute distress. Eyes: No Scleral Icterus, PERRLA Ears/Nose/Mouth/Throat: NL Teeth, Lips, Gums, Clear Oropharnyx, Mucous Membranes Moist Neck: NL Appearance and Movements; NL JVP, Trachea Midline Respiratory: Symmetrical Chest Expansion and Respiratory Effort, Clear to Auscultation Cardiovascular: NL Sounds; No Murmurs; No JVD, - - Irregular. 1+ pedal edema Abdominal: NL Sounds; No Tenderness; No Distention, No Hepatosplenomegaly Extremities: No Clubbing, Cyanosis Skin: - - Pt with ecchymosis UE, LE; excoriation b/l LE. Neurological: Alert and Oriented x 3 Result Diagrams: 02/18/19 06:25 02/18/19 06:25 Microbiology and Other Data: Microbiology 02/17/19 12:37 Urine Culture - Final Urine No Growth (<1,000 CFU/mL) Assess/Plan/Problems-Billing Mr. Swan is an 88 yo M who has a h/o questionable COPD, alcoholism, HTN and PAF who presented to the ER after falling twice at home and was admitted to treat a possible pneumonia and have PT eval. - Patient Problems (1) Urinary retention Comment: -On 02/17 Bladder scan done and showed a large residual -Naik placed -Continue Flomax -f/u with Dr. Heaton as outpatient (2) Pneumonia Comment: -Pt received 7d ceftriaxone and azithro -Resolved (3) HTN (hypertension) Comment: -BP well controlled with reduced dose of clonidine -Continue to monitor (4) COPD (chronic obstructive pulmonary disease) Comment: -This was a questionable diagnosis given from urgent care -The patient may benefit from outpatient PFTs (5) DVT prophylaxis Comment: -mehdi (6) Full code status Status and Disposition: Inpatient. Awaiting STR.
[2019-02-21] MEDS: Tamsulosin CAP* 0.4 MG PO SCH (19:57)
[2019-02-21] MEDS: cefTRIAXone(*) 1 GM in NS 0.9% 50 ML* 50 ML IVPB SCH (21:10)
[2019-02-22] MEDS: Melatonin 3 MG TAB PO PRN (00:15)
[2019-02-22] MEDS: clonazePAM TAB(*) 0.5 MG PO PRN (00:55)
[2019-02-22] MEDS: SPIRIVA Respimat* (tiotropium) 2.5 mcg/inh Inhaler INH SCH (08:09)
[2019-02-22] MEDS: Mometasone/Formoter 200/5 MDI INH SCH (08:10)
[2019-02-22] MEDS: Chlorthalidone TAB* 50 MG PO SCH (11:25)
[2019-02-22] MEDS: Terazosin CAP* 5 MG PO SCH (11:26)
[2019-02-22] MEDS: Docusate CAP* 100 MG PO SCH (11:26)
[2019-02-22] MEDS: cloNIDine TAB* 0.1 MG PO SCH (11:27)
[2019-02-22] MEDS: Aspirin EC TAB* 81 MG TAB.EC PO SCH (11:27)
[2019-02-22] MEDS: Cetirizine* 10 MG TAB PO SCH (11:27)
[2019-02-22] MEDS: Cholecalciferol TAB* 1000 UNITS PO SCH (11:27)
[2019-02-22] MEDS: Polyethylene Glycol 3350* 17 GM PACKET PO SCH (11:28)
[2019-02-22] MEDS: Apixaban* 5 MG TAB PO SCH (11:28)
[2019-02-22 12:30] VITALS: BP 149/69
--- NOTE | 2019-02-22 14:59 | DS ---
DATE OF ADMISSION: 02/15/2019. DATE OF DISCHARGE: 02/22/2019. PRIMARY CARE PHYSICIAN: Dr. Rain. OTHER PROVIDER: Dr. Heaton. ATTENDING PROVIDER: Faviola Aly MD * (DICTATED BY AMPARO SMITH) DISCHARGE DIAGNOSES: 1. Fall. 2. Community-acquired pneumonia. 3. Urinary retention. SECONDARY DIAGNOSES: 1. Paroxysmal atrial fibrillation, on Eliquis. 2. Hypertension. 3. Hyperlipidemia. 4. Possible COPD. 5. Gout. 6. Anxiety. 7. Alcohol abuse. DISCHARGE MEDICATIONS: 1. Albuterol HFA inhaler prn. 2. Allopurinol 150 mg p.o. daily. 3. Eliquis 5 mg p.o. b.i.d. 4. Aspirin 81 mg p.o. daily. 5. Tessalon 200 mg t.i.d. prn. 6. Chlorthalidone 25 mg p.o. daily. 7. Vitamin D3 2,000 units p.o. daily. 8. Advair Diskus 500/50 one inhalation b.i.d. 9. Claritin 10 mg p.o. daily. 10. Potassium Chloride 20 mEq p.o. daily. 11. Terazosin 5 mg p.o. daily. 12. Spiriva one inhalation daily. 13. Clonazepam 0.5 mg b.i.d. prn. 14. Clonidine 0.1 mg b.i.d. 15. Melatonin 3 mg p.o. at bedtime. 16. MiraLax 17 gm p.o. daily. 17. Flomax 0.4 mg p.o. daily. STUDIES WHILE IN THE HOSPITAL: Please see discharge summary dictated by Dr. Marcia Hyde on 02/20/2019. HISTORY OF PRESENT ILLNESS/HOSPITAL COURSE: Mr. Swan is an 88-year-old male with a past medical history of paroxysmal atrial fibrillation, hypertension, hyperlipidemia, and daily alcohol use who presented to the ER on February 14 after a fall. For full and complete details, please see the history and physical dictated by Dr. Addy Rey and the discharge summary dictated by Dr. Marcia Hyde. In short, the patient was hospitalized and was found to have community-acquired pneumonia treated with Azithromycin times five days and ceftriaxone times seven days. He was noted to have some postvoid residual and a Parker catheter was placed. There is some hematuria which gradually resolved. The patient's acute kidney injury resolved with placement of a Parker catheter. The patient will follow-up with Dr. Heaton as an outpatient. His office will call with an appointment date and time. The patient will be discharged with a Parker in place. He will continue Flomax. PHYSICAL EXAMINATION: General: Mr. Swan is a well-developed, well-nourished, older white male who is sitting up in bed. He appears to be in no acute distress. He is pleasant and cooperative. Skin: The patient has abrasions to bilateral anterior knees. Right elbow skin tear was clean, dry, and intact. Dressing in place. HEENT: PERRL, EOMI, nonicteric sclerae. Mildly hard of hearing. Oral mucous membranes are moist, there are no lesions. Pharynx is clear. The tongue is at midline. Cardiovascular: Irregular S1, S2 present without murmurs, rubs, clicks, or gallops. There is no JVD. There is 1+ pretibial edema. Pulmonary: Symmetrical chest expansion. Fine crackles at bilateral bases. No rhonchi, wheezes, or rubs. No digital clubbing or cyanosis. Abdomen: Bowel sounds in all quadrants. Soft, nontender to palpation. Musculoskeletal: Full range of motion without pain or deformities. Neuro: The patient is awake. He is alert and oriented times three. Cranial nerves grossly intact. 5/5 bilateral upper and lower extremities strength. DISCHARGE PLAN: Mr. Swan will be discharged to [facility] for subacute rehab. CONDITION AT DISCHARGE: Good. DIET: Resume home diet. ACTIVITY: As tolerated with assistance. FOLLOW-UP: 1. Follow-up with a primary care provider at discharge from subacute rehab. 2. Follow-up with Dr. Heaton as scheduled. Office will call with an appointment date and time. This is a summarized report of a complex medical history and hospital stay. For further details, please see the entire medical record. TIME SPENT: Approximately 30 minutes were spent on this discharge, greater than half of that time was spent [id number] with the patient discussing discharge plans and instructions. ABIMAEL PARTIDA, AMPARO [id number]/[facility] #: [id number] MIKEY
== END 2019-02-22 16:15 | DRG 194 ==
LOC: ED 03:42 → MED 06:49 → OBSVTOIN 02-16 12:00 → MEDTELE 02-16 13:31
PROVIDERS: ADMIT Internal Medicine; ATTEND Internal Medicine
PROC: 0T9B70Z Drainage of Bladder with Drainage Device, Via Natural or Artificial Opening (ICD-10-PCS; principal; 2019-02-17)
DX: J18.9 Pneumonia, unspecified organism (principal); J44.1 Chronic obstructive pulmonary disease with (acute) exacerbation; N17.9 Acute kidney failure, unspecified; F10.20 Alcohol dependence, uncomplicated; I48.0 Paroxysmal atrial fibrillation; F41.9 Anxiety disorder, unspecified; I10 Essential (primary) hypertension; M10.9 Gout, unspecified; M48.8X2 Other specified spondylopathies, cervical region; E78.5 Hyperlipidemia, unspecified; Z66 Do not resuscitate; R29.6 Repeated falls; R00.1 Bradycardia, unspecified; R33.9 Retention of urine, unspecified; K59.00 Constipation, unspecified; Y90.1 Blood alcohol level of 20-39 mg/100 ml; I08.0 Rheumatic disorders of both mitral and aortic valves; R31.9 Hematuria, unspecified; Z79.01 Long term (current) use of anticoagulants; Z79.82 Long term (current) use of aspirin
CPT/HCPCS: 36415; 80048; 80076; 81003; 81015; 83605; 83735; 83880; 85025; 85027; 86140; 86200; 86431; 87086; 93005; 93306; 93970; 94640; 99284; A9270-GY; G0378; G8978-GP-CL; G8979-GP-CH; J0696; J3535

== ENCOUNTER 2019-04-04 07:12 | Emergency (ER) | payer OTHER ==
[2019-04-04 07:33] VITALS: BP 105/45
--- NOTE | 2019-04-04 08:12 | UC ---
Dental HPI - HPI Summary HPI Summary: COMES IN TODAY CONCERNED THAT HE HAS BEEN PERSISTENTLY BLEEDING SINCE HIS LEFT LOWER MOLAR FELL OUT LAST NIGHT. HE HAS DIFFUSELY POOR DENTITION AND STATES MANY OF HIS TEETH HAVE BEEN LOOSE FOR MONTHS. HE IS ON ELIQUIS FOR ATRIAL FIBRILLATION. - History of Current Complaint Chief Complaint: UCDentalProblem Stated Complaint: GUM BLEEDING Time Seen by Provider: 04/04/19 07:49 Hx Obtained From: Patient Onset/Duration: Sudden Onset, Lasting Hours, Still Present Severity: Moderate Pain Intensity: 0 Pain Scale Used: 0-10 Numeric Aggravating Factor(s): Nothing Alleviating Factor(s): Nothing - Allergies/Home Medications Allergies/Adverse Reactions: Allergies Allergy/AdvReac Type Severity Reaction Status Date / Time No Known Allergies Allergy Verified 04/04/19 07:23 Home Medications: Home Medications cloNIDine TAB* [Catapres 0.1 MG TAB*] 0.3 mg PO BID 04/04/19 [History Confirmed 04/04/19] PMH/Surg Hx/FS Hx/Imm Hx Cardiovascular History: Hypertension, Atrial Fibrillation Respiratory History: COPD - Surgical History Surgical History: Yes Surgery Procedure, Year, and Place: HERNIA REPAIR, T&A - Family History Known Family History: Positive: Hypertension - Social History Alcohol Use: None Alcohol Amount: Half a pint a day Substance Use Type: None Smoking Status (MU): Never Smoked Tobacco - Immunization History Most Recent Influenza Vaccination: recent Most Recent Pneumonia Vaccination: unknown Review of Systems All Other Systems Reviewed And Are Negative: Yes Constitutional: Positive: Negative Skin: Positive: Negative ENT: Positive: Other - BLEEDING TONGUE. Negative: Dental Pain Respiratory: Positive: Negative Cardiovascular: Positive: Negative Gastrointestinal: Positive: Negative Physical Exam Triage Information Reviewed: Yes Appearance: Well-Appearing, No Pain Distress, Well-Nourished Vital Signs: Initial Vital Signs Temp 98.7 F 04/04/19 07:24 Pulse 90 04/04/19 07:24 Resp 18 04/04/19 07:24 BP 105/45 04/04/19 07:24 Pulse Ox 94 04/04/19 07:24 Vital Signs Reviewed: Yes Eyes: Positive: Conjunctiva Clear ENT: Positive: Hearing grossly normal, Other - 0.5CM LACERATION LEFT LATERAL TONGUE - ACTIVELY BLEEDING Dental: Positive: Gross Decay/Caries @ - DIFFUSELY Neck: Positive: Supple, Nontender, No Lymphadenopathy Respiratory: Positive: No respiratory distress, No accessory muscle use Cardiovascular: Positive: Pulses Normal Musculoskeletal: Positive: No Edema Neurological: Positive: Alert Psychological: Positive: Age Appropriate Behavior Skin: Negative: Rashes Dental Complaint Course/Dx - Course Course Of Treatment: ON FURTHER EXAMINATION IT IS DISCOVERED THAT THE PATIENT IS NOT BLEEDING FROM HIS TOOTH SOCKET BUT RATHER A SMALL LACERATION ON THE LEFT SIDE OF HIS TONGUE. BLEEDING WAS NOT ABLE TO BE CONTROLLED WITH 20 MINUTES OF PRESSURE. WE CALLED THE LOCAL ORAL SURGEONS BUT THEY WERE UNAVAILABLE TO SEE THE PATIENT TODAY. PATIENT IS ALREADY ESTABLISHED WITH [facility]. WE CALLED THEIR OFFICE AND THEY 'RE WILLING TO SEE HIM PRESENTLY. PATIENT WILL GO DIRECTLY TO THEIR OFFICE FROM HERE. - Differential Dx/Diagnosis Provider Diagnosis: Tongue laceration Discharge ED - Sign-Out/Discharge Documenting (check all that apply): Patient Departure All imaging exams completed and their final reports reviewed: No Studies - Discharge Plan Condition: Stable Disposition: HOME Patient Education Materials: Laceration (ED) Referrals: Tai Rain MD [Primary Care Provider] - If Needed Lux Jane MD [Medical Doctor] - Additional Instructions: YOU ARE BLEEDING FROM A SMALL LACERATION ON THE LEFT SIDE OF YOUR TONGUE. WE HAVE BEEN UNABLE TO CONTROL THE BLEEDING HERE WITH PRESSURE. WE CALLED YOUR ENT OFFICE AND THEY ARE WILLING TO SEE YOU PRESENTLY. GO DIRECTLY TO THEIR OFFICE FROM HERE. - Billing Disposition and Condition Condition: STABLE Disposition: Home
--- OUTSIDE RECORDS SUMMARY | 2019-04-04 16:38 | XMS REPORT | Continuity of Care Document ---
:1930 External Reference #:[id number] Author Name Tai Rain M.D. Address [address] [place] [address] Care Team Providers Name Role Phone [facility] Spec/Tech, Care Team Information Water Resources Technical Officer [phone] Cardiovascular Kimberley Newell MD, [facility] Care Team Information Water Resources Technical Officer [phone] Problems Active Problems Provider Date Benign essential [...] Description Comments Sex Unknown Tobacco Use Reviewed: 03/22/19 Denies Cigarette Use Smoking Status Reviewed: 03/22/19 Denies Cigarette Use ETOH Use Drinks Alcohol Occasionally Tobacco Use Start: Unknown Patient has never smoked Allergies, Adverse Reactions, Alerts Active Allergies Reaction Severity Comments Date Lisinopril Cough 09/07/2005 Medications Active Medications SIG Qnty Indications Ordering Provider Date Furosemide 1 by mouth in the 30tabs R60.0 Tai Rain, 03/22/2019 20mg Tablets morning for leg M.D. swelling Spiriva Handihaler inhale the 90caps J44.9 Tai [...] high blood pressure Allopurinol take one-half tablet 10tabs Tai Rain, 11/09/2007 300mg Tablets daily to prevent M.D. gout Asp 1 Tab qd To Prevent 0caps Tai Rain, 07/16/2003 81mg Capsules A Stroke M.D. History Medications Prednisone 2 tablets (=40 10tabs J44.9 Unknown 01/31/2019 - 20mg mg) by mouth 02/06/2019 Tablets every day x 5 days starting on 02/01/19 Levofloxacin 1 by mouth every 10tabs Silcoff, 01/30/2019 - 750mg day for possible Sravan Lujan 02/09/2019 Tablets pneumonia Cephalexin 1 by mouth 3x a 30tabs L03.116 Silco, 01/04/2019 - 500mg day x10 days; for Sravan Lujan 01/14/2019 Tablets skin infection Silvadene apply to affected 85gm S90.522A Silcosenthil, 01/04/2019 - 1% Cream area near left Sravan Lujan 01/11/2019 ankle and cover with non adherent gauze once daily as described, change wound dressing daily Immunizations CPT Code Status Date Vaccine Lot # [id number] Given 01/11/2019 Influenza Vaccine, Inactivated, Subunit, [id number] Adjuvanted, For [facility] [address] Given 01/12/2018 Influenza Vaccine Split Virus Preservative Free Im [id number] Use (hi-dose) 60208 Given 12/14/2016 Influenza Vaccine Split Virus Preservative Free Im [id number] Use (hi-dose) 60382 Given 01/15/2016 Influenza Vaccine Split Virus Preservative Free Im [id number] Use (hi-dose) 43899 Given 03/06/2015 Influenza Virus Vaccine, Quadrivalent, Split, [id number] Preservative Free 96666 Given 10/09/2014 Prevnar 13 [id number] 33330 Given 02/26/2014 Influenza Vaccine Split Virus Preservative Free Im [id number] Use (hi-dose) 91931 Given 09/29/2013 Adacel or Boostrix, TDaP [id number] 64072 Given 01/30/2013 Flu, Split Virus 3Yrs [id number] 29817 Given 01/06/2012 Flu, Split Virus 3Yrs [id number] 26938 Given 01/19/2011 Flu, Split Virus 3Yrs [id number] 72544 Given 02/25/2010 Flu, Split Virus 3Yrs [id number] 19175 Given 04/18/2009 Flu, Split Virus 3Yrs [id number] 58641 Given 02/17/2008 Flu, Split Virus 3Yrs [id number] 85622 Given 08/09/2007 Pneumococcal Immunization [id number] 84563 Given 01/31/2007 Flu, Split Virus 3Yrs [id number] 86323 Given 02/22/2006 Flu, Split Virus 3Yrs [id number] 34247 Given 01/30/2005 Flu, Split Virus 3Yrs 32455 Given 02/09/2004 Flu, Split Virus 3Yrs 46750 Given 08/29/2003 Td Immunization 92752 Given 02/17/2003 Flu, Split Virus 3Yrs 21770 Given 06/24/1994 Pneumococcal Immunization [id number] Refused 01/31/2007 Zostavax Vital Signs Date Vital Result Comment 03/22/2019 4:42pm BP Systolic 160 mmHg BP Diastolic 84 mmHg Heart Rate 88 /min reg Respiratory Rate 16 /min not laboured Weight 194.50 lb 02/01/2019 9:21am BP Systolic 160 mmHg BP Diastolic 80 mmHg Heart Rate 90 /min O2 % BldC Oximetry 93 % Body Temperature 98.3 F Weight 173.50 lb Results Test Acquired Date Facility Test Result H/L Range Note CBC Auto 02/15/2019 [facility] White Blood 11.0 10^3/uL High 3.5- 10.8 Diff [phone] Count Red Blood Count 4.31 10^6/uL Normal 4.18-5.48 Hemoglobin 13.9 g/dL Low 14.0-18.0 Hematocrit 41 % Low 42-52 Mean Corpuscular Volume 95 fL High 80-94 Mean Corpuscular Hemoglobin 32 pg High 27-31 Mean Corpuscular HGB Conc 34 g/dL Normal 31-36 Red Cell Distribution Width 14 % Normal 10-15 Platelet Count 154 10^3/uL Normal 150-450 Mean Platelet Volume 10.4 fL Normal 7.4-10.4 Abs Neutrophils 10.1 10^3/uL High 1.5-7.7 Abs Lymphocytes 0.5 10^3/uL Low 1.0-4.8 Abs Monocytes 0.3 10^3/uL Normal 0-0.8 Abs Eosinophils 0.0 10^3/uL Normal 0-0.6 Abs Basophils 0.0 10^3/uL Normal 0-0.2 Abs Nucleated RBC 0.0 10^3/uL Granulocyte % 92.6 % Lymphocyte % 4.8 % Monocyte % 2.5 % Eosinophil % 0.0 % Basophil % 0.1 % Nucleated Red Blood Cells % 0.0 Laboratory test 02/15/2019 [facility] Lactic Acid 0.9 mmol/L Normal 0.5-2.0 1 finding [phone] B-Type Natriuretic Peptide BNP 847 pg/mL High <=100 Basic Metabolic Panel 02/15/2019 [facility] Sodium 137 mmol/L Normal 135-145 [phone] Potassium 4.4 mmol/L Normal 3.5-5.0 Chloride 104 mmol/L Normal 101-111 Co2 Carbon Dioxide 26 mmol/L Normal 22-32 Anion Gap 7 mmol/L Normal 2-11 Glucose 126 mg/dL High 70-100 Blood Urea Nitrogen 55 mg/dL High 6-24 Creatinine 1.26 mg/dL High 0.67-1.17 BUN/Creatinine Ratio 43.7 High 8-20 Calcium 10.5 mg/dL High 8.6-10.3 Egfr Non- 54.3 >60 Egfr 65.7 >60 2 Liver Function Panel 02/15/2019 [facility] Total Protein 6.0 g/dL Low 6.4-8.9 [phone] Albumin 3.1 g/dL Low 3.2-5.2 Globulin 2.9 g/dL Normal 2-4 Albumin/Globulin Ratio 1.1 Normal 1-3 Total Bilirubin 1.70 mg/dL High 0.2-1.0 Direct Bilirubin 0.50 mg/dL High 0.03-0.18 Indirect Bilirubin 1.2 mg/dL High 0.3-1.0 Alkaline Phosphatase 163 U/L High 34-104 Alt 16 U/L Normal 7-52 Ast 45 U/L High 13-39 Laboratory test 02/15/2019 [facility] Magnesium 2.0 mg/dL Normal 1.9- 2.7 finding [phone] C Reactive Protein 43.86 mg/L High <8.01 Rheumatoid Factor < 10 IU/mL Normal <15 CBC Auto Diff 02/14/2019 [facility] White Blood 15.4 10^3/uL High 3.5 -10.8 [phone] Count Red Blood Count 4.52 10^6/uL Normal 4.18-5.48 Hemoglobin 14.1 g/dL Normal 14.0-18.0 Hematocrit 43 % Normal 42-52 Mean Corpuscular Volume 95 fL High 80-94 Mean Corpuscular Hemoglobin 31 pg Normal 27-31 Mean Corpuscular HGB Conc 33 g/dL Normal 31-36 Red Cell Distribution Width 15 % Normal 10-15 Platelet Count 178 10^3/uL Normal 150-450 Mean Platelet Volume 10.5 fL High 7.4-10.4 Abs Neutrophils 12.8 10^3/uL High 1.5-7.7 Abs Lymphocytes 1.0 10^3/uL Normal 1.0-4.8 Abs Monocytes 1.4 10^3/uL High 0-0.8 Abs Eosinophils 0.1 10^3/uL Normal 0-0.6 Abs Basophils 0.1 10^3/uL Normal 0-0.2 Abs Nucleated RBC 0.0 10^3/uL Granulocyte % 83.4 % Lymphocyte % 6.3 % Monocyte % 9.0 % Eosinophil % 0.7 % Basophil % 0.6 % Nucleated Red Blood Cells % 0.1 Inr/Protime 02/14/2019 [facility] Inr 1.27 High 0.82-1.09 3 [phone] Urine Drug SCR 02/14/2019 [facility] Urine None None Detect ED & Pain [phone] Amphetamine Detected Clinic Screen Urine Barbiturates Screen None Detected None Detect Urine Benzodiazepine Screen None Detected None Detect Urine Cannabinoids Screen None Detected None Detect Urine Cocaine Screen None Detected None Detect Urine Opiates Screen None Detected None Detect Urine Phencyclidine Screen None Detected None Detect 4 Comp Metabolic Panel 02/14/2019 [facility] Sodium 137 mmol/L Normal 135-145 [phone] Potassium 4.2 mmol/L Normal 3.5-5.0 Chloride 102 mmol/L Normal 101-111 Co2 Carbon Dioxide 25 mmol/L Normal 22-32 Anion Gap 10 mmol/L Normal 2-11 Glucose 94 mg/dL Normal 70-100 Blood Urea Nitrogen 57 mg/dL High 6-24 Creatinine 1.40 mg/dL High 0.67-1.17 BUN/Creatinine Ratio 40.7 High 8-20 Calcium 11.1 mg/dL High 8.6-10.3 Total Protein 6.4 g/dL Normal 6.4-8.9 Albumin 3.4 g/dL Normal 3.2-5.2 Globulin 3.0 g/dL Normal 2-4 Albumin/Globulin Ratio 1.1 Normal 1-3 Total Bilirubin 1.30 mg/dL High 0.2-1.0 Alkaline Phosphatase 180 U/L High 34-104 Alt 13 U/L Normal 7-52 Ast 25 U/L Normal 13-39 Egfr Non- 48.1 >60 Egfr 58.1 >60 5 Laboratory test finding 02/14/2019 [facility] Alcohol 34 mg/dL High < 10 [phone] Urinalysis Profile 02/14/2019 [facility] Urine Color Yellow [phone] Urine Appearance Clear Urine Specific [place] 1.017 Normal 1.010-1.030 Urine pH 6.0 Normal 5-9 Urine Urobilinogen Negative Negative Urine Ketones Negative Negative Urine Protein Negative Negative Urine Leukocytes Trace Abnormal Negative Urine Blood 1+ Abnormal Negative Urine Nitrite Negative Negative Urine Bilirubin Negative Negative Urine Glucose Negative Negative Urine White Blood Cell Trace(0-5/hpf) Absent Urine Red Blood Cell 2+(6-10/hpf) Abnormal Absent Urine Bacteria 1+ Abnormal Absent Urine Squamous Epithelial Cell Present Abnormal Absent Urine Hyaline Casts Present Abnormal Absent Urine Culture And 02/14/2019 [facility] Urine Culture SEE RESULT 6 Sensitivities [phone] BELOW Laboratory test 10/18/2018 [facility] Calcium 10.8 mg/dL High 8.6-10 finding [phone] .3 Pthi 10/18/2018 [facility] Calcium (PTH 10.8 mg/dL High 8.6-10 [phone] Intact) .3 PTH Intact 45.7 pg/mL Normal 12-88 Total Protein 24HR Urine 10/18/2018 [facility] Urine Collection Time 24 hr [phone] Urine Total Volume 1050 mL Urine TP Concentration 53 mg/dL Urine Total Protein/24HR 556 mg/24Hr High 0-165 1 CTS Severe Sepsis and Septic Shock Management Bundle Measure requires all lactic acids initially measuring >2.0 mmol/L be repeated. 2 Because ethnic data is not always readily [...] 15-29 5 Kidney failure <15 (or dialysis) 3 Standard intensity warfarin therapeutic range: 2.0-3.0 High intensity warfarin therapeutic range: 2.5-3.5 4 The urine specimen was tested at the listed cutoffs: Drug class test level (ng/mL) Amphetamines 500 Barbiturates 200 Benzodiazepine metabolites 200 Cocaine metabolites 150 Cannabinoids 50 Opiates 300 Pcp 25 Specimen was received without chain of custody. Results should be used for medical purposes only. 5 Because ethnic data is not always readily [...] 15-29 5 Kidney failure <15 (or dialysis) 6 SEE RESULT BELOW Name: OCTAVIA REY : [address]: Jovi Atkinson MD Acct: [id number] Unit: [id number] AGE: 88 Location: ED Re02/14/19 SEX: M Status: DEP ER SPEC: [id number] SHIRLEY: 02/14/[address] [facility] [address]: Jovi Atkinson MD REQ: [id number] RECD: 02/14/19 STATUS: LEXII TAPIA DR: Tai Rain MD _ SOURCE: URINE SPDESC: ORDERED: Urine Culture Procedure Result Reported Site Urine Culture Final 02/15/19- 1626 ML No Growth (<1,000 CFU/mL) * ML - Main Lab . END OF REPORT DEPARTMENT OF PATHOLOGY, [address] [place] [address] Michael Washington M.D. Director [facility] # [id number] Procedures Date Code Description Status 01/16/2019 99218 X-Ray Chest 2 V Completed 08/31/2006 14879463 Colonoscopy Completed Medical Devices Description No Information [...] Main Office Tai Rain, R60.0 Localized edema M.DJuventino S90.522A Blister (nonthermal), left ankle, initial encounter L03.116 Cellulitis of left lower limb Z68.26 Body mass index (BMI) 26.0-26.9, adult Office Visit 10/24/2018 9:15a Main Office Tai Rain J44.9 Chronic obstructive M.D. pulmonary disease, unspecified F41.9 Anxiety disorder, unspecified I48.2 Chronic atrial fibrillation I10 Essential (primary) hypertension R80.9 Proteinuria, unspecified E83.52 Hypercalcemia Assessments Date Code Description Provider 03/22/2019 R60.0 Localized edema Tai Rain M.D. 03/22/2019 I10 Essential (primary) hypertension Tai Rain M.D. 03/22/2019 N40.1 Benign prostatic hyperplasia with lower Tai Rain M.D. urinary tract symptoms 02/01/2019 J44.9 Chronic obstructive pulmonary disease, Tai Rain [...] Rain M.D. 01/11/2019 Z23 Encounter for immunization aTi Rain M.D. 01/11/2019 I10 Essential (primary) hypertension [...] Tai Rain M.D. Plan of Treatment Future Appointment(s):03/27/2019 11:15 am - Tai Rain M.D. 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 Sent Your suggestions regarding further w/u and medication management are appreciated Consult and Testing - Specialist decides [facility] [address] [address] [phone]
--- OUTSIDE RECORDS SUMMARY | 2019-04-04 16:38 | XMS REPORT | Continuity of Care Document ---
:1930 External Reference #:[id number] Author Name Tai Rain M.D. Address [address] [facility] [address] [place] [address] Care Team Providers Name Role Phone [facility] Spec/Tech, Care Team Information Regional Property Manager Cardiovascular Kimberley Newell MD, [facility] Care Team Information Regional Property Manager [phone] Problems Active Problems Provider Date Benign essential [...] CPT Code Status Date Vaccine Lot # [id number] Given 01/11/2019 Influenza Vaccine, Inactivated, Subunit, [id number] Ad[place]ed, [place] [facility] [place] [address] Given 01/12/2018 Influenza Vaccine Split Virus Preservative Free Im [id number] Use (hi-dose) 51914 Given 12/14/2016 Influenza Vaccine Split Virus Preservative Free Im [id number] Use (hi-dose) 11709 Given 01/15/2016 Influenza Vaccine Split Virus Preservative Free Im [id number] Use (hi-dose) 26892 Given 03/06/2015 Influenza Virus Vaccine, Quadrivalent, Split, [id number] Preservative Free 79234 Given 10/09/2014 Prevnar 13 [id number] 68905 Given 02/26/2014 Influenza Vaccine Split Virus Preservative Free Im [id number] Use (hi-dose) 92475 Given 09/29/2013 Adacel or Boostrix, TDaP [id number] 76093 Given 01/30/2013 Flu, Split Virus 3Yrs [id number] 20411 Given 01/06/2012 Flu, Split Virus 3Yrs [id number] 48720 Given 01/19/2011 Flu, Split Virus 3Yrs [id number] 42379 Given 02/25/2010 Flu, Split Virus 3Yrs [id number] 84800 Given 04/18/2009 Flu, Split Virus 3Yrs [id number] 47401 Given 02/17/2008 Flu, Split Virus 3Yrs [id number] 26256 Given 08/09/2007 Pneumococcal Immunization [id number] 25537 Given 01/31/2007 Flu, Split Virus 3Yrs [id number] 88777 Given 02/22/2006 Flu, Split Virus 3Yrs [id number] 81006 Given 01/30/2005 Flu, Split Virus 3Yrs 86942 Given 02/09/2004 Flu, Split Virus 3Yrs 59044 Given 08/29/2003 Td Immunization 91496 Given 02/17/2003 Flu, Split Virus 3Yrs 06474 Given 06/24/1994 Pneumococcal Immunization 53493 Refused 01/31/2007 Zostavax Vital Signs Date Vital Result Comment 03/27/2019 11:35am BP Systolic 168 mmHg BP Diastolic 80 mmHg Weight 188.00 lb w/shoes 03/22/2019 4:42pm BP Systolic 160 mmHg BP Diastolic 84 mmHg Heart Rate 88 /min reg Respiratory Rate 16 /min not laboured Weight 194.50 lb Results Test Acquired Date Facility Test Result H/L Range Note CBC Auto 02/15/2019 [facility] White Blood 11.0 10^3/uL High 3.5- 10.8 Diff [phone] Count Red Blood Count 4.31 10^6/uL Normal [...] Blood Cells % 0.0 Laboratory test 02/15/2019 [facility] Lactic Acid 0.9 mmol/L Normal 0.5-2.0 1 finding [phone] B-Type Natriuretic Peptide BNP 847 pg/mL High <=100 Basic Metabolic Panel 02/15/2019 [facility] Sodium 137 mmol/L Normal 135-145 [phone] Potassium 4.4 mmol/L Normal 3.5-5.0 Chloride 104 mmol/L Normal 101-111 Co2 Carbon Dioxide 26 mmol/L Normal 22-32 Anion Gap 7 mmol/L Normal 2-11 Glucose 126 mg/dL High 70-100 Blood Urea Nitrogen 55 mg/dL High 6-24 Creatinine 1.26 mg/dL High 0.67-1.17 BUN/Creatinine Ratio 43.7 High 8-20 Calcium 10.5 mg/dL High 8.6-10.3 Egfr Non- 54.3 >60 Egfr 65.7 >60 2 Liver Function Panel 02/15/2019 [facility] Total Protein 6.0 g/dL Low 6.4-8.9 [phone] Albumin 3.1 g/dL Low 3.2-5.2 Globulin 2.9 g/dL Normal 2-4 Albumin/Globulin Ratio 1.1 Normal 1-3 Total Bilirubin 1.70 mg/dL High 0.2-1.0 Direct Bilirubin 0.50 mg/dL High 0.03-0.18 Indirect Bilirubin 1.2 mg/dL High 0.3-1.0 Alkaline Phosphatase 163 U/L High 34-104 Alt 16 U/L Normal 7-52 Ast 45 U/L High 13-39 Laboratory test 02/15/2019 [facility] Magnesium 2.0 mg/dL Normal 1.9- 2.7 finding [phone] C Reactive Protein 43.86 mg/L High <8.01 Rheumatoid Factor < 10 IU/mL Normal <15 CBC Auto Diff 02/14/2019 [facility] White Blood 15.4 10^3/uL High 3.5 -10.8 [phone] Count Red Blood Count 4.52 10^6/uL Normal [...] Red Blood Cells % 0.1 Inr/Protime 02/14/2019 [facility] Inr 1.27 High 0.82-1.09 3 [phone] Urine Drug SCR 02/14/2019 [facility] Urine None None Detect ED & Pain [phone] Amphetamine Detected Clinic Screen Urine Barbiturates Screen None Detected None Detect Urine Benzodiazepine Screen None Detected None Detect Urine Cannabinoids Screen None Detected None Detect Urine Cocaine Screen None Detected None Detect Urine Opiates Screen None Detected None Detect Urine Phencyclidine Screen None Detected None Detect 4 Comp Metabolic Panel 02/14/2019 [facility] Sodium 137 mmol/L Normal 135-145 [phone] Potassium 4.2 mmol/L Normal 3.5-5.0 Chloride 102 [...] 58.1 >60 5 Laboratory test finding 02/14/2019 [facility] Alcohol 34 mg/dL High < 10 [phone] Urinalysis Profile 02/14/2019 [facility] Urine Color Yellow [phone] Urine Appearance Clear Urine Specific [place] 1.017 Normal 1.010-1.030 Urine pH 6.0 Normal [...] Present Abnormal Absent Urine Culture And 02/14/2019 [facility] Urine Culture SEE RESULT 6 Sensitivities [phone] BELOW Laboratory test 10/18/2018 [facility] Calcium 10.8 mg/dL High 8.6-10 finding [phone] .3 Pthi 10/18/2018 [facility] Calcium (PTH 10.8 mg/dL High 8.6-10 [phone] Intact) .3 PTH Intact 45.7 pg/mL Normal 12-88 Total Protein 24HR Urine 10/18/2018 [facility] Urine Collection Time 24 hr [phone] Urine Total Volume 1050 mL Urine TP Concentration 53 mg/dL Urine Total Protein/24HR 556 mg/24Hr High 0-165 1 [facility] Severe Sepsis and Septic Shock Management Bundle [...] [address]: Jovi Atkinson MD Acct: [id number] Unit: [id number] AGE: 88 Location: Re02/14/19 SEX: M Status: DEP ER SPEC: [id number] SHIRLEY: 02/14/19 [facility] DR: Jovi Atkinson MD REQ: [id number] RECD: 02/14/19 STATUS: LEXII TAPIA DR: Tai Rain MD _ SOURCE: URINE SPDESC: ORDERED: Urine Culture Procedure Result Reported Site Urine Culture Final 02/15/19- 1626 ML No Growth (<1,000 CFU/mL) * ML - Main Lab . END OF REPORT DEPARTMENT OF PATHOLOGY, [address] [place] [address] Michael Washington M.D. Director [facility] # [id number] Procedures Date Code Description Status 01/16/2019 53950 X-Ray Chest 2 V Completed 08/31/2006 67844424 Colonoscopy Completed Medical Devices Description No Information Available Encounters Type Date Location Provider Dx Diagnosis Office Visit 03/27/2019 11:15a Main Office Tai Rain M.D. R60.0 Localized edema I10 Essential (primary) hypertension J44.9 Chronic obstructive pulmonary disease, unspecified R80.9 Proteinuria, unspecified Office Visit 03/22/2019 4:30p Main Office Tai Rain R60.0 Localized edema M.D. I10 Essential (primary) hypertension N40.1 Benign prostatic hyperplasia with lower urinary tract symp Office Visit 02/01/2019 9:15a Main Office Tai Rain J44.9 Chronic obstructive M.D. pulmonary disease, unspecified R05 Cough R06.00 [...] E83.52 Hypercalcemia Assessments Date Code Description Provider 03/27/2019 R60.0 Localized edema Tai Rain M.D. 03/27/2019 I10 Essential (primary) hypertension Tai Rain M.D. 03/27/2019 J44.9 Chronic obstructive pulmonary disease, Tai Rain M.D. unspecified 03/27/2019 R80.9 Proteinuria, unspecified Tai Rain M.D. 03/22/2019 R60.0 Localized edema Tai Rain M.D. [...] Rain M.D. unspecified 10/24/2018 F41.9 Anxiety disorder, marthaified Tai Rain M.D. 10/24/2018 I48.2 Chronic atrial fibrillation Tai Rain M.D. 10/24/2018 I10 Essential (primary) hypertension Tai Rain M.D. 10/24/2018 R80.9 Proteinuria, unspecified Tai Rain M.D. 10/24/2018 E83.52 Hypercalcemia Tai Rain M.D. Plan of Treatment Future Appointment(s):04/28/2019 11:00 am - Tai Rain M.D. at Main [place]12/03/2017 - Eleni Giron.J44.9 Chronic obstructive pulmonary disease, [...] (Grimaced some with the discussion.)Z71.89 Other specified nejvsbsraeL69.899 Other fpc (current) drug therapy Functional Status Description No Information Available Mental Status Description No Information Available Referrals Refer to Reason for Referral Status Appt Kimberley Newell MD, Mha 88yo man with labile HTN, proteinuria. Sent Your suggestions regarding further w/u and medication management are appreciated Consult and Testing - Specialist decides [facility] [address] [address] [phone]
--- OUTSIDE RECORDS SUMMARY | 2019-04-04 16:38 | XMS REPORT | Continuity of Care Document ---
:1930 External Reference #:[id number] Author Name Marielle Alvarado MD, [facility], [facility] (transmitted by agent of provider Mel Payan) Address [address] [place] [address] Care Team Providers Name Role Phone Gabo Grant MD - Care Team Information Compugraph Operator [phone] Otolaryngology Tai Rain MD - Internal Care Team Information Compugraph Operator Medicine Problems Description No Information Available Social History Type Date Description Comments Sex Unknown Allergies, Adverse Reactions, Alerts Active Allergies Reaction Severity Comments Date Lisinopril cough 05/28/2017 Medications Active Medications SIG Qnty Indications Ordering Provider Date Clonidine HCL Unknown 0.3mg Tablets Clonazepam 1 by mouth as Unknown 0.5mg Tablets needed for sleep Dispers Benzonatate one by mouth Unknown 200mg Capsules three times daily as needed for cough Ventolin HFA 2 puffs by mouth Unknown 108(90Base) four times a day mcg/Act Aerosol as needed Vitamin D 1 by mouth every Unknown 2000Unit Tablets day Klor-Con M20 1 by mouth every Unknown 20Meq Tablets day ER Tramadol HCL 1-2 tablets every Unknown 50mg Tablets 6 hours as needed Warfarin Sodium as directed Unknown 5mg Tablets Losartan Potassium 1 by mouth every Unknown 100mg day Tablets Terazosin HCL 1 by mouth every Unknown 5mg Capsules day Claritin once daily Unknown 10mg Tablets Chlorthalidone 1/2 by mouth Unknown 25mg Tablets every day Allopurinol 1 by mouth every Unknown 300mg Tablets day Aspirin 81 Low Dose 1 by mouth every Unknown 81mg day Chewtabs Immunizations Description No Information Available Vital Signs Description No Information Available Results Test Date Facility Test Result H/L Range Note CBC Auto Diff 02/15/2019 [facility] White Blood 11.0 10^3/uL High 3.5-10.[address] [place] [address] [phone] Red Blood Count 4.31 10^6/uL Normal 4.18-5.48 [...] Acid 0.9 mmol/L Normal 0.5-2.0 1 finding [address] [place] [address] [phone] B-Type Natriuretic Peptide BNP 847 pg/mL High <=100 Basic Metabolic 02/15/2019 [facility] Sodium 137 mmol/L Normal 135-[address] [place] [address] [phone] Potassium 4.4 mmol/L Normal 3.5-5.0 Chloride 104 mmol/L Normal 101-111 Co2 Carbon Dioxide 26 mmol/L Normal 22-32 Anion Gap 7 mmol/L Normal 2-11 Glucose 126 mg/dL High 70-100 Blood Urea Nitrogen 55 mg/dL High 6-24 Creatinine 1.26 mg/dL High 0.67-1.17 BUN/Creatinine Ratio 43.7 High 8-20 Calcium 10.5 mg/dL High 8.6-10.3 Egfr Non- 54.3 >60 Egfr 65.7 >60 2 Liver Function 02/15/2019 [facility] Total Protein 6.0 g/dL Low 6.4-8.9 Panel [address] [place] [address] [phone] Albumin 3.1 g/dL Low 3.2-5.2 Globulin 2.9 g/dL Normal 2-4 Albumin/Globulin Ratio 1.1 Normal 1-3 Total Bilirubin 1.70 mg/dL High 0.2-1.0 Direct Bilirubin 0.50 mg/dL High 0.03-0.18 Indirect Bilirubin 1.2 mg/dL High 0.3-1.0 Alkaline Phosphatase 163 U/L High 34-104 Alt 16 U/L Normal 7-52 Ast 45 U/L High 13-39 Laboratory test 02/15/2019 [facility] Magnesium 2.0 mg/dL Normal 1.9-2.7 finding [address] [place] [address] [phone] C Reactive Protein 43.86 mg/L High <8.01 Rheumatoid Factor < 10 IU/mL Normal <15 1 [facility] Severe Sepsis and Septic Shock Management Bundle [...] 15-29 5 Kidney failure <15 (or dialysis) Procedures Description No Information Available Medical Devices Description No Information Available Encounters Description No Information Available Assessments Description No Information Available Plan of Treatment No Information Available Functional Status Description No Information Available Mental Status Description No Information Available Referrals Description No Information Available
--- OUTSIDE RECORDS SUMMARY | 2019-04-04 16:38 | XMS REPORT | Continuity of Care Document ---
:1930 External Reference #:[id number] Author Name Lux Jane MD Address [address] [place] [address] Care Team Providers Name Role Phone Tai Rain M.D. 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 02/09/2019 Propionate once a day 50mcg/Act Suspension Singulair Take 1 Tablet Daily 90tabs 471.8 Zan Oliver 06/08/2008 10mg Tablets Sravan Bravo Chlorthalidone Juanita [facility] 02/10/2008 25mg Tablets Prednisone Take Two Tablets [...] CPT Code Status Date Vaccine Lot # [id number] Given 05/07/2014 Prevnar 13 For Intramuscular Use 06870 Given 05/07/2014 Influenza Virus Vaccine, 3 Years Of Age And Above, Intramuscular Vital Signs Date Vital Result Comment 04/04/2019 9:14am Weight 194.00 lb Weight 87.998 kg Height 71 inches 5'11" Height in cm's 180.3 cm BMI (Body Mass Index) 27.1 kg/m2 12/08/2018 9:08am Weight 194.00 lb Weight 87.998 kg Height 71 inches 5'11" Height in cm's 180.3 cm BMI (Body Mass Index) 27.1 kg/m2 Results Description No Information Available Procedures Date Code Description Status 12/08/2018 30203 Binocular Microscopy Completed 11/24/2018 20223 Binocular Microscopy Completed Medical Devices Description No Information Available Encounters Type Date Location Provider Dx Diagnosis Office Visit 04/04/2019 [place] Lux Sanchez8 Other diseases of 9:00a 05/03/07 MD Buck tongue Office Visit 02/09/2019 [place] Asif Grant H92.11 Otorrhea, right 9:00a 05/03/07 ear J31.0 Chronic rhinitis Office Visit 12/08/2018 [place] Asif Grant H92.11 Otorrhea, right 9:00a 05/03/07 ear 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, bilateral Office Visit 11/24/2018 [place] Asif Grant H92.11 Otorrhea, right 9:00a 05/03/07 ear 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, 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, bilateral Office Visit 10/27/2018 [place] Asif Grant H92.11 Otorrhea, right 8:30a 05/03/07 ear 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, 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, bilateral D48.5 Neoplasm of uncertain behavior of skin Assessments Date Code Description Provider 04/04/2019 K14.8 Other diseases of tongue Lux Jane MD 02/09/2019 H92.11 Otorrhea, right ear Juanita, Asif CHEN 02/09/2019 J31.0 Chronic rhinitis Juanita, Asif CHEN 12/08/2018 H92.11 Otorrhea, right ear Ruparelia, Asif CHEN 12/08/2018 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, bilateral Ruparelia, Asif CHEN 11/24/2018 H92.11 Otorrhea, right ear Ruparelia, Asif CHEN 11/24/2018 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, bilateral Ruparelia, Asif CHEN 11/24/2018 H90.6 Mixed conductive and sensorineural hearing Juanita, Asif CHEN loss, bilateral 10/27/2018 H92.11 Otorrhea, right ear Ruparelia, Asif CHEN 10/27/2018 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, bilateral Ruparelia, Asif CHEN 10/27/2018 H90.6 Mixed conductive and sensorineural hearing Kaylanparelia, Asif CHEN loss, bilateral 10/27/2018 D48.5 Neoplasm of uncertain behavior of skin Asif Grant MD Plan of Treatment Future Appointment(s):05/15/2019 10:00 am - Asif Grant MD at [place] - Asif Grant MDH92.11 Otorrhea, right earComments:I instilled Chloromycetin boric acid powder in the right ear recheck back 4 qffgufW55.03 Tympanosclerosis, bilateral Functional Status Description No Information Available Mental Status Description No Information Available Referrals Description No Information Available
--- OUTSIDE RECORDS SUMMARY | 2019-04-04 16:38 | XMS REPORT | Continuity of Care Document ---
:1930 External Reference #:[id number] Author Name Tai Rain M.D. Address [address] [place] [address] Care Team Providers Name Role Phone [facility] Spec/Tech, Care Team Information Information Assurance Officer [phone] Cardiovascular Kimberley Newell MD, [facility] Care Team Information Information Assurance Officer [phone] Problems Active Problems Provider Date Benign essential [...] Rain M.D. Onset: 02/08/2015 Essential hypertension Tai Rani M.D. Onset: 02/26/2015 Anxiety state Tai Rain [...] CPT Code Status Date Vaccine Lot # 11239 Given 01/11/2019 Influenza Vaccine, Inactivated, Subunit, [id number] Adjuvanted, For [facility] 19972 Given 01/12/2018 Influenza Vaccine Split Virus Preservative Free Im [id number] Use (hi-dose) 96533 Given 12/14/2016 Influenza Vaccine Split Virus Preservative Free Im [id number] Use (hi-dose) 88026 Given 01/15/2016 Influenza Vaccine Split Virus Preservative Free Im [id number] Use (hi-dose) 30391 Given 03/06/2015 Influenza Virus Vaccine, Quadrivalent, Split, [id number] Preservative Free 63292 Given 10/09/2014 Prevnar 13 [id number] 01231 Given 02/26/2014 Influenza Vaccine Split Virus Preservative Free Im [id number] Use (hi-dose) 54055 Given 09/29/2013 Adacel or Boostrix, TDaP [id number] 93437 Given 01/30/2013 Flu, Split Virus 3Yrs [id number] 40555 Given 01/06/2012 Flu, Split Virus 3Yrs [id number] 19794 Given 01/19/2011 Flu, Split Virus 3Yrs [id number] 20231 Given 02/25/2010 Flu, Split Virus 3Yrs [id number] 55699 Given 04/18/2009 Flu, Split Virus 3Yrs [id number] 82350 Given 02/17/2008 Flu, Split Virus 3Yrs [id number] 83425 Given 08/09/2007 Pneumococcal Immunization [id number] 51200 Given 01/31/2007 Flu, Split Virus 3Yrs [id number] 55798 Given 02/22/2006 Flu, Split Virus 3Yrs [id number] 26346 Given 01/30/2005 Flu, Split Virus 3Yrs 09499 Given 02/09/2004 Flu, Split Virus 3Yrs 39047 Given 08/29/2003 Td Immunization 61326 Given 02/17/2003 Flu, Split Virus 3Yrs 51136 Given 06/24/1994 Pneumococcal Immunization 07993 Refused 01/31/2007 Zostavax Vital Signs Date Vital Result Comment 04/03/2019 9:13am BP Systolic 152 mmHg BP Diastolic 62 mmHg Weight 179.00 lb w/sneakers 03/27/2019 11:35am BP Systolic 168 mmHg BP Diastolic 80 mmHg Weight 188.00 lb w/shoes Results Test Acquired Date Facility Test Result H/L Range Note CBC Auto 02/15/2019 [facility] White Blood 11.0 10^3/uL High 3.5- 10.8 Diff [phone] Count Red Blood Count 4.31 10^6/uL Normal [...] Blood Cells % 0.0 Laboratory test 02/15/2019 [facility] Lactic Acid 0.9 mmol/L Normal 0.5-2.0 1 finding [phone] B-Type Natriuretic Peptide BNP 847 pg/mL High <=100 Basic Metabolic Panel 02/15/2019 [facility] Sodium 137 mmol/L Normal 135-145 [phone] Potassium 4.4 mmol/L Normal 3.5-5.0 Chloride 104 mmol/L Normal 101-111 Co2 Carbon Dioxide 26 mmol/L Normal 22-32 Anion Gap 7 mmol/L Normal 2-11 Glucose 126 mg/dL High 70-100 Blood Urea Nitrogen 55 mg/dL High 6-24 Creatinine 1.26 mg/dL High 0.67-1.17 BUN/Creatinine Ratio 43.7 High 8-20 Calcium 10.5 mg/dL High 8.6-10.3 Egfr Non- 54.3 >60 Egfr 65.7 >60 2 Liver Function Panel 02/15/2019 [facility] Total Protein 6.0 g/dL Low 6.4-8.9 [phone] Albumin 3.1 g/dL Low 3.2-5.2 Globulin 2.9 g/dL Normal 2-4 Albumin/Globulin Ratio 1.1 Normal 1-3 Total Bilirubin 1.70 mg/dL High 0.2-1.0 Direct Bilirubin 0.50 mg/dL High 0.03-0.18 Indirect Bilirubin 1.2 mg/dL High 0.3-1.0 Alkaline Phosphatase 163 U/L High 34-104 Alt 16 U/L Normal 7-52 Ast 45 U/L High 13-39 Laboratory test 02/15/2019 [facility] Magnesium 2.0 mg/dL Normal 1.9- 2.7 finding [phone] C Reactive Protein 43.86 mg/L High <8.01 Rheumatoid Factor < 10 IU/mL Normal <15 Urine Culture And 02/14/2019 [facility] Urine Culture SEE RESULT BELOW 3 Sensitivities [phone] Urinalysis Profile 02/14/2019 [facility] Urine Color Yellow [phone] Urine Appearance Clear Urine Specific [place] 1.017 Normal 1.010-1.030 Urine pH 6.0 Normal [...] Absent Urine Hyaline Casts Present Abnormal Absent Laboratory test finding 02/14/2019 [facility] Alcohol 34 mg/dL High < 10 [phone] Comp Metabolic Panel 02/14/2019 [facility] Sodium 137 mmol/L Normal 135-145 [phone] Potassium 4.2 mmol/L Normal 3.5-5.0 Chloride 102 [...] Egfr Non- 48.1 >60 Egfr 58.1 >60 4 Urine Drug 02/14/2019 [facility] Urine Amphetamine None Detected None Detect SCR ED & [phone] Screen Pain Clinic Urine Barbiturates Screen None Detected None Detect Urine Benzodiazepine Screen None Detected None Detect Urine Cannabinoids Screen None Detected None Detect Urine Cocaine Screen None Detected None Detect Urine Opiates Screen None Detected None Detect Urine Phencyclidine Screen None Detected None Detect 5 Inr/Protime 02/14/2019 [facility] Inr 1.27 High 0.82-1.09 6 [phone] CBC Auto Diff 02/14/2019 [facility] White Blood 15.4 10^3/uL High 3.5 -10.8 [phone] Count Red Blood Count 4.52 10^6/uL Normal [...] % Nucleated Red Blood Cells % 0.1 Laboratory test 10/18/2018 [facility] Calcium 10.8 mg/dL High 8.6- 10.3 finding [phone] Pthi 10/18/2018 [facility] Calcium (PTH 10.8 mg/dL High 8.6-10.3 [phone] Intact) PTH Intact 45.7 pg/mL Normal 12-88 Total Protein 24HR Urine 10/18/2018 [facility] Urine Collection Time 24 hr [phone] Urine Total Volume 1050 mL Urine TP Concentration 53 mg/dL Urine Total Protein/24HR 556 mg/24Hr High 0-165 1 KSS Severe Sepsis and Septic Shock Management Bundle [...] 5 Kidney failure <15 (or dialysis) 3 SEE RESULT BELOW Name: CANDIDOOCTAVIA Tyshawn : [address]: Jovi Atkinson MD Acct: [id number] Unit: [id number] AGE: 88 Location: ED Re02/14/19 SEX: M Status: DEP ER SPEC: [id number] SHIRLEY: 02/14/[address]: Jovi Atkinson MD REQ: [id number] RECD: 02/14/19 STATUS: LEXII TAPIA DR: Tai Rain MD _ SOURCE: URINE SPDESC: ORDERED: Urine Culture Procedure Result Reported Site Urine Culture Final 02/15/19- 1626 ML No Growth (<1,000 CFU/mL) * ML - Main Lab . END OF REPORT DEPARTMENT OF PATHOLOGY, [address] [place] [address] Michael Washington M.D. Director [facility] # [id number] 4 Because ethnic data is not always readily [...] 15-29 5 Kidney failure <15 (or dialysis) 5 The urine specimen was tested at the listed cutoffs: Drug class test level (ng/mL) Amphetamines 500 Barbiturates 200 Benzodiazepine metabolites 200 Cocaine metabolites 150 Cannabinoids 50 Opiates 300 Pcp 25 Specimen was received without chain of custody. Results should be used for medical purposes only. 6 Standard intensity warfarin therapeutic range: 2.0-3.0 High intensity warfarin therapeutic range: 2.5-3.5 Procedures Date Code Description Status 04/03/2019 04753 X-Ray Shoulder Two Or More Views Completed 01/16/2019 92413 X-Ray Chest 2 V Completed 08/31/2006 06809042 Colonoscopy Completed Medical Devices Description No Information Available Encounters Type Date Location Provider Dx Diagnosis Office Visit 04/03/2019 Main Office Tai Rain, M25.512 Pain in left 9:15a M.D. shoulder S40.022A Contusion of left upper arm, initial encounter Office Visit 03/27/2019 11:15a Main Office Tai Rain, R60.0 Localized edema M.D. I10 Essential (primary) hypertension J44.9 Chronic obstructive pulmonary disease, unspecified R80.9 Proteinuria, unspecified Office Visit 03/22/2019 4:30p Main Office Tai Rain, R60.0 Localized edema M.D. I10 Essential (primary) hypertension N40.1 Benign prostatic hyperplasia with lower urinary tract symp Office Visit 02/01/2019 9:15a Main Office Tai Rain, J44.9 Chronic [...] E83.52 Hypercalcemia Assessments Date Code Description Provider 04/03/2019 M25.512 Pain in left shoulder Tai Rain M.D. 04/03/2019 S40.022A Contusion of left upper arm, initial Tai Rain M.D. encounter 03/27/2019 R60.0 Localized edema Tai Rain M.D. [...] am - Tai Rain M.D. at Main Rtesug0712/03/2017 - Nikunj GironJ44.9 Chronic obstructive pulmonary disease, [...] (Grimaced some with the discussion.)Z71.89 Other specified iiwsgbnoyzF19.899 Other correction (current) drug therapy Functional Status Description No Information Available Mental Status Description No Information Available Referrals Refer to Reason for Referral Status Appt Kimberley Newell MD, a 88yo man with labile HTN, proteinuria. Sent Your suggestions regarding further w/u and medication management are appreciated Consult and Testing - Specialist decides [facility] [address] [place] [address] [phone]
== END 2019-04-04 08:50 | disposition home or self-care (01) ==
LOC: UCEAST 07:12
DX: S01.512A Laceration without foreign body of oral cavity, initial encounter (principal); I10 Essential (primary) hypertension; J44.9 Chronic obstructive pulmonary disease, unspecified; I48.91 Unspecified atrial fibrillation; Z79.01 Long term (current) use of anticoagulants; Z79.899 Other long term (current) drug therapy; X58.XXXA Exposure to other specified factors, initial encounter; Y92.9 Unspecified place or not applicable
CPT/HCPCS: 99212; G0463

== ENCOUNTER 2019-04-05 13:36 | Emergency (ER) | payer OTHER ==
[2019-04-05 13:44] VITALS: BP 169/74
--- NOTE | 2019-04-05 14:00 | UC ---
Complaint Male HPI - HPI Summary HPI Summary: 89 yo male presents with urinary retention. He tells me that last night he had a normal urine stream, but woke up this morning and has had multiple episodes of urinary urgency but is only able to urinate small dribbles of urine. He tells me that he has had this issue in the past and a naik catheter was placed when he was at [facility] about a month ago. His symptoms resolved and the cath was able to be removed. He was seen by Dr. Mckenna of urology. Denies fever, chills, abdominal pain, n/v, blood in urine. - History of Current Complaint Chief Complaint: UCGU Stated Complaint: TROUBLE URINATING Time Seen by Provider: 04/05/19 13:59 Hx Obtained From: Patient Onset/Duration: Sudden Onset Severity Initially: Mild Severity Currently: Moderate Pain Intensity: 5 Pain Scale Used: 0-10 Numeric - Allergies/Home Medications Allergies/Adverse Reactions: Allergies Allergy/AdvReac Type Severity Reaction Status Date / Time No Known Allergies Allergy Verified 04/05/19 13:44 Home Medications: Home Medications Furosemide TAB* [Lasix TAB*] 20 mg PO DAILY 04/05/19 [History Confirmed 04/05/19 ] PMH/Surg Hx/FS Hx/Imm Hx - Additional Past Medical History Additional PMH: afib Alcoholism CHF COPD Urinary retention - Surgical History Surgical History: Yes Surgery Procedure, Year, and Place: HERNIA REPAIR, T&A - Family History Known Family History: Positive: Hypertension - Social History Occupation: Retired Alcohol Use: None Alcohol Amount: Half a pint a day Substance Use Type: None Smoking Status (MU): Never Smoked Tobacco - Immunization History Most Recent Influenza Vaccination: recent Most Recent Pneumonia Vaccination: unknown Review of Systems All Other Systems Reviewed And Are Negative: No Constitutional: Positive: Negative Skin: Positive: Negative Respiratory: Positive: Negative Cardiovascular: Positive: Negative Gastrointestinal: Positive: Negative Genitourinary: Positive: Other - Urinary retention Neurological: Positive: Negative Psychological: Positive: Negative Physical Exam - Summary Physical Exam Summary: GENERAL: NAD. WDWN. No pain distress. SKIN: No rashes, sores, lesions, or open wounds. NECK: Supple. Nontender. No lymphadenopathy. CHEST: CTAB. No r/r/w. No accessory muscle use. Breathing comfortably and in no distress. CV: Pulses intact. Cap refill <2seconds ABDOMEN: Mild tenderness overlying bladder without appreciable distention. No CVA tenderness. Bowel sounds present NEURO: Alert. PSYCH: Age appropriate behavior. Triage Information Reviewed: Yes Vital Signs: Initial Vital Signs Temp 98 F 04/05/19 13:40 Pulse 90 04/05/19 13:40 Resp 16 04/05/19 13:40 BP 169/74 04/05/19 13:40 Pulse Ox 100 04/05/19 13:40 Laboratory Tests 04/05/19 04/05/19 13:59 15:04 POC Urine Color Yellow Yellow POC Urine Clarity Cloudy Cloudy POC Urine pH 7.5 7.0 POC Ur Specif Strawberry 1.020 1.020 POC Urine Protein 1+ A 1+ A POC Ur Glucose (UA) Negative Negative POC Urine Ketones Negative Negative POC Urine Blood 1+ A 1+ A POC Urine Nitrite Positive A Negative POC Urine Bilirubin Negative Negative POC Urine Urobilinogen 1.0 0.2 POC U Leukocyte Esteras Trace A 3+ A 1359 prior to cath UA 1504 post cath UA Vital Signs Reviewed: Yes Complaint Male Course/Dx - Course Course Of Treatment: Spoke with Dr. sharma of Urology and he recommends placing naik today and drawing UA and urine culture off cath. F/u with him within 1 week. Naik cath inserted by nursing with 400-450cc urine output. Pt felt much improved. UA with 3+ leuks post cath. Will treat with keflex and have him f/u with Urology within the next 2 days. Urine post cath sent for culture - Differential Dx/Diagnosis Provider Diagnosis: Urinary retention Discharge ED - Sign-Out/Discharge Documenting (check all that apply): Patient Departure All imaging exams completed and their final reports reviewed: No Studies - Discharge Plan Condition: Stable Disposition: HOME Prescriptions: Cephalexin CAP* [Keflex CAP*] 500 mg PO BID #10 cap Patient Education Materials: Urinary Retention in Men (ED) Referrals: Tai Rain MD [Primary Care Provider] - Ilan Heaton MD [Medical Doctor] - 2 Days Additional Instructions: If you develop a fever, shortness of breath, chest pain, new or worsening symptoms - please call your PCP or go to the ED immediately. Your blood pressure was high at todays visit. Please see your primary provider within 4 weeks for recheck and re-evaluation. Please call Urology at the number below to schedule an appointment within the next 2 days for a recheck - Billing Disposition and Condition Condition: STABLE Disposition: Home
--- NOTE | 2019-04-08 16:03 | UC ---
- Progress Note Progress Note: lab returned with >100,00 Staphylococcus Epidermidis that is not sensitive to Keflex please call change medication to Doxycycline 100 mg po bid for 7 days and follow with pcp this week---If he is worse in any way patient should go to ED Course/Dx - Diagnoses Provider Diagnoses: Urinary retention Discharge ED - Sign-Out/Discharge Documenting (check all that apply): Post-Discharge Follow Up All imaging exams completed and their final reports reviewed: No Studies - Discharge Plan Condition: Stable Disposition: HOME Prescriptions: Cephalexin CAP* [Keflex CAP*] 500 mg PO BID #10 cap Patient Education Materials: Urinary Retention in Men (ED) Referrals: Tai Rain MD [Primary Care Provider] - Ilan Heaton MD [Medical Doctor] - 2 Days Additional Instructions: If you develop a fever, shortness of breath, chest pain, new or worsening symptoms - please call your PCP or go to the ED immediately. Your blood pressure was high at todays visit. Please see your primary provider within 4 weeks for recheck and re-evaluation. Please call Urology at the number below to schedule an appointment within the next 2 days for a recheck - Billing Disposition and Condition Condition: STABLE Disposition: Home
== END 2019-04-05 15:28 | disposition home or self-care (01) ==
LOC: UCEAST 13:36
DX: R33.9 Retention of urine, unspecified (principal); I48.91 Unspecified atrial fibrillation; J44.9 Chronic obstructive pulmonary disease, unspecified; I50.9 Heart failure, unspecified; Z79.899 Other long term (current) drug therapy
CPT/HCPCS: 81003; 87077; 87086; 87186; 99212; G0463

== ENCOUNTER 2019-06-12 19:48 | Emergency (ER) | payer MEDICARE, OTHER ==
--- OUTSIDE RECORDS SUMMARY | 2019-06-12 20:14 | XMS REPORT | Continuity of Care Document ---
:1930 External Reference #:[id number] Author Name Tai Rain M.D. Address [address] [facility] [address] [place] [address] Care Team Providers Name Role Phone [facility] [employer], Care Team Information Pcb Design Engineer Cardiovascular Kimberley Newell MD, [facility] Care Team Information Pcb Design Engineer [phone] Problems Active Problems Provider Date Benign essential [...] Description Comments Sex Unknown Tobacco Use Reviewed: 06/06/19 Denies Cigarette Use Smoking Status Reviewed: 06/06/19 Denies Cigarette Use ETOH Use 06/06/2019 Denies alcohol use states he has not had any alcohol since he was admitted to hospital in January 2019 Tobacco Use Start: Unknown Patient has never smoked Allergies, Adverse Reactions, Alerts Active Allergies Reaction Severity Comments Date Lisinopril Cough 09/07/2005 Medications Active Medications SIG Qnty Indications Ordering Date Provider Polyethylene Glycol use 1 cap full Unknown 06/05/2019 3350 in 8 oz of any Powder fluid every day; adjust dose as directed w/ goal of 1-2 soft bms/day Duoderm CGF Dressing apply to 10units L89.312 Tai Rain, 05/08/2019 affected area on M.D. 4"X4" Misc right buttock, change every 2-3 days, wash area well before applying a new dressing Fluticasone inhale one puff 180units J44.9 Tai Rain, 05/08/2019 Propionate/Salmeterol by mouth twice a M.D. Diskus day; rinse 500-50mcg/Dose mouth out after Aerosol use Flomax 1 by mouth every HusseiniIlan, 04/28/2019 0.4mg Capsules day Betamethasone apply a thin 45gm R21 Tai Rain, 04/18/2019 Valerate layer to M.D. 0.1% Cream involved areas on buttocks 2x/day as needed Furosemide 1 by mouth in 30tabs R60.0 Tai Rain, 03/22/2019 20mg Tablets the morning if M.D. needed for leg swelling Spiriva Handihaler inhale the 90caps J44.9 Tai Rain, 01/16/2019 contents of one M.D. 18mcg Capsules capsule once daily as directed Potassium Chloride Take One Tablet 90tabs I10 Tai Rain, 01/02/2019 Aura ER By Mouth Every M.D. 20Meq Tablets Day ER R60.0 E87.6 Eliquis Take One Tablet By 180tabs I48.2 Tai Rain, 10/06/2017 5mg Tablets Mouth Twice A Day To M.D. Decrease Risk Of Blood Clots From Atrial Fibrillation (To Replace Warfarin) Clonidine HCL take one tablet by 180tabs I10 Tai Rain, 09/10/2015 0.3mg mouth twice a day for M.D. Tablets high blood pressure Clonazepam 1/2-1 by mouth 2x/day 30tabs F41.9 Tai Rain, 11/14/2014 0.5mg as needed for anxiety M.D. Tablets Benzonatate Take One Capsule By 90caps R05 Sascha Melo, 07/23/2014 200mg Mouth Three Times A D.O. Capsules Day as Needed For Cough Ventolin HFA Inhale 2 Puffs By 108units J44.1 Tai Rain, 06/13/2014 Mouth Every 4 To 6 M.D. 108(90Base) mcg/Act Hours as Needed For Aerosol Cough, Wheezing And Shortness Of Breath J44.9 [...] 1 by mouth 3x a 30tabs L03.116 Silcoff, 01/04/2019 - 500mg day x10 days; for Sravan Lujan 01/14/2019 Tablets skin infection Silvadene apply to affected 85gm S90.522A Silcoff, 01/04/2019 - 1% Cream area near left Sravan Lujan 01/11/2019 ankle and cover with non adherent gauze once daily as described, change wound dressing daily Immunizations CPT Code Status Date Vaccine Lot # [id number] Given 01/11/2019 Influenza Vaccine, Inactivated, Subunit, [id number] Adjuvanted, For Intrmusc 17190 Given 01/12/2018 Influenza Vaccine Split Virus Preservative Free Im [id number] Use (hi-dose) 57347 Given 12/14/2016 Influenza Vaccine Split Virus Preservative Free Im [id number] Use (hi-dose) 56244 Given 01/15/2016 Influenza Vaccine Split Virus Preservative Free Im [id number] Use (hi-dose) 36464 Given 03/06/2015 Influenza Virus Vaccine, Quadrivalent, Split, [id number] Preservative Free 38726 Given 10/09/2014 Prevnar 13 [id number] 03870 Given 02/26/2014 Influenza Vaccine Split Virus Preservative Free Im [id number] Use (hi-dose) 05584 Given 09/29/2013 Adacel or Boostrix, TDaP [id number] 80356 Given 01/30/2013 Flu, Split Virus 3Yrs [id number] 65705 Given 01/06/2012 Flu, Split Virus 3Yrs [id number] 57342 Given 01/19/2011 Flu, Split Virus 3Yrs [id number] 21525 Given 02/25/2010 Flu, Split Virus 3Yrs [id number] 51721 Given 04/18/2009 Flu, Split Virus 3Yrs [id number] 12696 Given 02/17/2008 Flu, Split Virus 3Yrs [id number] 05419 Given 08/09/2007 Pneumococcal Immunization [id number] 77418 Given 01/31/2007 Flu, Split Virus 3Yrs [id number] 72418 Given 02/22/2006 Flu, Split Virus 3Yrs [id number] 38900 Given 01/30/2005 Flu, Split Virus 3Yrs 92982 Given 02/09/2004 Flu, Split Virus 3Yrs 09342 Given 08/29/2003 Td Immunization 54353 Given 02/17/2003 Flu, Split Virus 3Yrs 45701 Given 06/24/1994 Pneumococcal Immunization 08198 Refused 01/31/2007 Zostavax Vital Signs Date Vital Result Comment 06/06/2019 1:40pm BP Systolic 140 mmHg BP Diastolic 72 mmHg Heart Rate 70 /min irreg Respiratory Rate 18 /min not laboured Height 69.5 inches 5'9.50" w/shoes Weight 189.00 lb w/shoes BMI (Body Mass Index) 27.5 kg/m2 05/08/2019 11:01am BP Systolic 100 mmHg BP Diastolic 60 mmHg Weight 186.00 lb w/shoes Results Test Acquired Date Facility Test Result H/L Range Note CBC No Diff 06/06/2019 [facility] White Blood 8.9 10^3/uL Normal 3.5- 10.8 [phone] Count Red Blood Count 3.75 10^6/uL Low 4.18-5.48 Hemoglobin 11.3 g/dL Low 14.0-18.0 Hematocrit 34 % Low 42-52 Mean Corpuscular Volume 92 fL Normal 80-94 Mean Corpuscular Hemoglobin 30 pg Normal 27-31 Mean Corpuscular HGB Conc 33 g/dL Normal 31-36 Red Cell Distribution Width 15 % Normal 10-15 Platelet Count 260 10^3/uL Normal 150-450 Mean Platelet Volume 9.7 fL Normal 7.4-10.4 Inr/Protime 06/06/2019 [facility] Inr 1.45 High 0.82-1.09 8 [phone] Laboratory test 06/06/2019 [facility] Partial 42.0 High 26.0-38.0 finding [phone] Thrombo seconds Time PTT Urine Culture And 05/26/2019 [facility] Urine SEE RESULT 2, 3 Sensitivities [phone] Culture BELOW Basic Metabolic 04/28/2019 [facility] Sodium 142 mmol/L Normal 135- 145 Panel [phone] Potassium 4.6 mmol/L Normal 3.5-5.0 Chloride 105 mmol/L Normal 101-111 Co2 Carbon Dioxide 31 mmol/L Normal 22-32 Anion Gap 6 mmol/L Normal 2-11 Glucose 82 mg/dL Normal 70-100 Blood Urea Nitrogen 30 mg/dL High 6-24 Creatinine 0.93 mg/dL Normal 0.67-1.17 BUN/Creatinine Ratio 32.3 High 8-20 Calcium 11.0 mg/dL High 8.6-10.3 Egfr Non- 76.9 >60 Egfr 93.0 >60 4 Poc Urinalysis 04/05/2019 [facility] Poc Glucose, Urine Negative Negative [phone] Poc Bilirubin, Urine Negative Negative Poc Ketone, Urine Negative Negative Poc Specific Ethel, Urine 1.020 Normal 1.010-1.030 Poc Blood, Urine 1+ Abnormal Negative Poc pH, Urine 7.5 Normal 5-9 Poc Protein, Urine 1+ Abnormal Negative Poc Urobilinogen, Urine 1.0 Negative Poc Nitrite, Urine Positive Abnormal Negative Poc Leukocytes, Urine Trace Abnormal Negative Poc Color, Urine Yellow Poc Clarity, Urine Cloudy 5 Urine Culture And 04/05/2019 [facility] Urine SEE RESULT 6, 7 Sensitivities [phone] Culture BELOW Poc Urinalysis 04/05/2019 [facility] Poc Glucose, Negative Negative [phone] Urine Poc Bilirubin, Urine Negative Negative Poc Ketone, Urine Negative Negative Poc Specific Ethel, Urine 1.020 Normal 1.010-1.030 Poc Blood, Urine 1+ Abnormal Negative Poc pH, Urine 7.0 Normal 5-9 Poc Protein, Urine 1+ Abnormal Negative Poc Urobilinogen, Urine 0.2 Negative Poc Nitrite, Urine Negative Negative Poc Leukocytes, Urine 3+ Abnormal Negative Poc Color, Urine Yellow Poc Clarity, Urine Cloudy 8 Urine Culture And 04/05/2019 [facility] Urine Culture SEE RESULT 9 , 10 Sensitivities [phone] BELOW CBC Auto Diff 02/15/2019 [facility] White Blood 11.0 High 3.5-9 [phone] Count 10^3/uL 0.8 Red Blood Count 4.31 10^6/uL Normal 4.18-5.48 [...] Blood Cells % 0.0 Laboratory test 02/15/2019 [facility] Lactic Acid 0.9 mmol/L Normal 0.5-2.0 11 finding [phone] B-Type Natriuretic Peptide BNP 847 pg/mL High <=100 Basic Metabolic Panel 02/15/2019 [facility] Sodium 137 mmol/L Normal 135-145 [phone] Potassium 4.4 mmol/L Normal 3.5-5.0 Chloride 104 mmol/L Normal 101-111 Co2 Carbon Dioxide 26 mmol/L Normal 22-32 Anion Gap 7 mmol/L Normal 2-11 Glucose 126 mg/dL High 70-100 Blood Urea Nitrogen 55 mg/dL High 6-24 Creatinine 1.26 mg/dL High 0.67-1.17 BUN/Creatinine Ratio 43.7 High 8-20 Calcium 10.5 mg/dL High 8.6-10.3 Egfr Non- 54.3 >60 Egfr 65.7 >60 12 Liver Function Panel 02/15/2019 [facility] Total Protein 6.0 g/dL Low 6.4-8.9 [phone] Albumin 3.1 g/dL Low 3.2-5.2 Globulin 2.9 g/dL Normal 2-4 Albumin/Globulin Ratio 1.1 Normal 1-3 Total Bilirubin 1.70 mg/dL High 0.2-1.0 Direct Bilirubin 0.50 mg/dL High 0.03-0.18 Indirect Bilirubin 1.2 mg/dL High 0.3-1.0 Alkaline Phosphatase 163 U/L High 34-104 Alt 16 U/L Normal 7-52 Ast 45 U/L High 13-39 Laboratory test 02/15/2019 [facility] Magnesium 2.0 mg/dL Normal 1.9- 2.7 finding [phone] Reactive Protein 43.86 mg/L High <8.01 Rheumatoid Factor < 10 IU/mL Normal <15 CBC Auto Diff 02/14/2019 [facility] White Blood 15.4 10^3/uL High 3.5 -10.8 [phone] Count Red Blood Count 4.52 10^6/uL Normal [...] Red Blood Cells % 0.1 Inr/Protime 02/14/2019 [facility] Inr 1.27 High 0.82-1.09 13 [phone] Urine Drug SCR 02/14/2019 [facility] Urine None None Detect ED & Pain [phone] Amphetamine Detected Clinic Screen Urine Barbiturates Screen None Detected None Detect Urine Benzodiazepine Screen None Detected None Detect Urine Cannabinoids Screen None Detected None Detect Urine Cocaine Screen None Detected None Detect Urine Opiates Screen None Detected None Detect Urine Phencyclidine Screen None Detected None Detect 14 Comp Metabolic Panel 02/14/2019 [facility] Sodium 137 mmol/L Normal 135-145 [phone] Potassium 4.2 mmol/L Normal 3.5-5.0 Chloride 102 [...] Egfr Non- 48.1 >60 Egfr 58.1 >60 15 Laboratory test finding 02/14/2019 [facility] Alcohol 34 mg/dL High < 10 [phone] Urinalysis Profile 02/14/2019 [facility] Urine Color Yellow [phone] Urine Appearance Clear Urine Specific Ethel 1.017 Normal 1.010-1.030 Urine pH 6.0 Normal [...] Present Abnormal Absent Urine Culture And 02/14/2019 [facility] Urine Culture SEE RESULT 16 Sensitivities [phone] BELOW 1 Standard intensity warfarin therapeutic range: 2.0-3.0 High intensity warfarin therapeutic range: 2.5-3.5 2 [id number] 3 SEE RESULT BELOW Name: OCTAVIA REY : [address]: Shelbie Pittman MD Acct: [id number] Unit: [id number] AGE: 89 Location: [facility] Re05/26/19 SEX: M Status: DEP ER SPEC: [id number] SHIRLEY: 05/26/19-[address] [facility] [address]: Shelbie Pittman MD REQ: [id number] RECD: 05/26/19-1112 STATUS: COMP OTHR DR: Tai Rain MD _ SOURCE: URINE SPDESC: ORDERED: Urine Culture COMMENTS: [id number] Procedure Result Reported Site Urine Culture Final 05/27/19- 1012 ML No Growth (<1,000 CFU/mL) * - [facility] . END OF REPORT DEPARTMENT OF PATHOLOGY, [address] [place] [address] Michael Washington M.D. Director [facility] # [id number] 4 Because ethnic data is not always [...] 5 Kidney failure <15 (or dialysis) 5 Water Maintenance Supervisor: [id number] 6 FROM [facility] 7 SEE RESULT BELOW Name: OCTAVIA REY : [address]: Faviola Han MD Acct: [id number] Unit: [id number] AGE: 89 Location: [facility] Re04/05/19 SEX: M Status: DEP ER SPEC: [id number] SHIRLEY: 04/05/19-[address]: Slava CHRISTENSEN REQ: [id number] RECD: 04/05/19 STATUS: COMP OTHR DR: Faviola Rain MD _ SOURCE: URINE SPDESC: ORDERED: Urine Culture COMMENTS: FROM NEW CATHETER Procedure Result Reported Site Urine Culture Final 04/08/19812 ML Organism 1 STAPHYLOCOCCUS EPIDERMIDIS [place] Count >100,000 (Many) CFU/ML 1. STAPHYLOCOCCUS EPIDERMIDIS M.I.C. RX --------- ------ Penicillin >=0.5 R Gentamicin >=16 R Linezolid 1 S Nitrofurantoin <=16 S Oxacillin >=4 R * Quinupristin/Dalfopristin 1 S Rifampin <=0.5 S Tetracycline <=1 S Doxycycline - Deduced S * Minocycline - Deduced S Tigecycline <=0.12 S Trimethoprim/Sulfamethoxazole >=320 R Vancomycin <=0.5 S Imipenem-Deduced R * Ampicillin/Sulbactam-Deduced R Cefazolin-Deduced R CONTINUED ON NEXT PAGE DEPARTMENT OF PATHOLOGY, [address] [place] [address] Michael Washington M.D. Director [facility] # [id number] Specimen: [id number] Collected: 04/05/19 Received: 04/05/19 (Continued) Procedure Result Reported Site Urine Culture Final (continued) * These antibiotics are not available in the [facility] Formulary Contact the Microbiology Department for any additional antibiotic reporting. * [facility] - [facility] . END OF REPORT DEPARTMENT OF PATHOLOGY, [address] [place] [address] Michael Washington M.D. Director [facility] # [id number] Water Maintenance Supervisor: [id number] SEE RESULT BELOW Name: OCTAVIA REY : [address]: Faviola Han MD Acct: [id number] Unit: [id number] AGE: 89 Location: [facility] Re04/05/19 SEX: M Status: DEP ER SPEC: [id number] SHIRLEY: 04/05/[address] [facility] [address]: Slava CHRISTENSEN REQ: [id number] RECD: 04/05/19 STATUS: LEXII TAPIA DR: Faviola Rain MD _ SOURCE: URINE [facility]: ORDERED: Urine Culture COMMENTS: [id number] QUERIES: Urine Source: Random Procedure Result Reported Site Urine Culture Final 04/08/19818 ML Organism 1 STAPHYLOCOCCUS EPIDERMIDIS [place] Count >100,000 (Many) CFU/ML 1. STAPHYLOCOCCUS EPIDERMIDIS M.I.C. RX --------- ------ Penicillin >=0.5 R Gentamicin >=16 R Linezolid 1 S Nitrofurantoin <=16 S Oxacillin >=4 R * Quinupristin/Dalfopristin 1 S Rifampin <=0.5 S Tetracycline 2 S Doxycycline - Deduced S * Minocycline - Deduced S Tigecycline <=0.12 S Trimethoprim/Sulfamethoxazole >=320 R Vancomycin 1 S Imipenem-Deduced R * Ampicillin/Sulbactam-Deduced R Cefazolin-Deduced R CONTINUED ON NEXT PAGE DEPARTMENT OF PATHOLOGY, [address] [place] [address] Michael Washington M.D. Director [facility] # [id number] Specimen: [id number] Collected: 04/05/19 Received: 04/05/19 (Continued) Procedure Result Reported Site Urine Culture Final (continued) * These antibiotics are not available in the [facility] Formulary Contact the Microbiology Department for any additional antibiotic reporting. * ML - [facility] . END OF REPORT DEPARTMENT OF PATHOLOGY, [address] [place] [address] Michael Washington M.D. Director [facility] # [id number] 11 [facility] Severe Sepsis and Septic Shock Management Bundle Measure requires all lactic acids initially measuring >2.0 mmol/L be repeated. 12 Because ethnic data is not always readily [...] 15-29 5 Kidney failure <15 (or dialysis) 13 Standard intensity warfarin therapeutic range: 2.0-3.0 High intensity warfarin therapeutic range: 2.5-3.5 14 The urine specimen was tested at the listed cutoffs: Drug class test level (ng/mL) Amphetamines 500 Barbiturates 200 Benzodiazepine metabolites 200 Cocaine metabolites 150 Cannabinoids 50 Opiates 300 Pcp 25 Specimen was received without chain of custody. Results should be used for medical purposes only. 15 Because ethnic data is not always readily [...] 15-29 5 Kidney failure <15 (or dialysis) 16 SEE RESULT BELOW Name: OCTAVIA REY : [address]: Jovi Atkinson MD Acct: [id number] Unit: [id number] AGE: 88 Location: Re02/14/19 SEX: M Status: DEP ER SPEC: [id number] SHIRLEY: 02/14/[address] [facility] [address]: Jovi Atkinson MD REQ: [id number] RECD: 02/14/19 STATUS: LEXII TAPIA DR: Tai Rain MD _ SOURCE: URINE SPDESC: ORDERED: Urine Culture Procedure Result Reported Site Urine Culture Final 02/15/19- 1626 ML No Growth (<1,000 CFU/mL) * [facility] - [facility] . END OF REPORT DEPARTMENT OF PATHOLOGY, [address] [place] [address] Michael Washington M.D. Director [facility] # [id number] Procedures Date Code Description Status 06/06/2019 82760 Electrocardiogram Complete Completed 04/03/2019 67439 X-Ray Shoulder Two Or More Views Completed 01/16/2019 69213 X-Ray Chest 2 V Completed 08/31/2006 75750745 Colonoscopy Completed Medical Devices Description No Information Available Encounters Type Date Location Provider Dx Diagnosis Office Visit 05/08/2019 Main Office Tai Rain, R21 Rash and other 11:00a M.D. nonspecific skin eruption L89.312 Pressure ulcer of right buttock, stage 2 R60.0 Localized edema Office Visit 04/28/2019 11:00a Main Office Tai Rain, I10 Essential (primary) M.D. hypertension R60.0 Localized edema R33.9 Retention of urine, unspecified N40.1 Benign prostatic hyperplasia with lower urinary tract symp J44.9 Chronic obstructive pulmonary disease, unspecified F41.9 Anxiety disorder, unspecified Z96.0 Presence of urogenital implants Office Visit 04/18/2019 11:15a Main Office Tai Rain, S01.81xA Laceration w/o M.D. foreign body of oth part of head, init encntr R21 Rash and other nonspecific skin eruption R33.9 Retention of urine, unspecified N40.1 Benign prostatic hyperplasia with lower urinary tract symp K40.30 Unil inguinal hernia, w obst, w/o gangr, not spcf as recur Office Visit 04/03/2019 9:15a Main Office Tai Rain, M25.512 Pain in left M.D. 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 examination 06/06/2019 N40.1 Benign prostatic hyperplasia with lower Tai Rain M.D. urinary tract symptoms 06/06/2019 R33.9 Retention of urine, unspecified Tai Rain M.D. 06/06/2019 I10 Essential (primary) hypertension Tai Rain M.D. 06/06/2019 J44.9 Chronic obstructive pulmonary disease, Tai Rain M.D. unspecified 06/06/2019 F41.9 Anxiety disorder, unspecified Tai Rain M.D. 06/06/2019 I48.20 Chronic atrial fibrillation, unspecified Tai Rain M.D. 06/06/2019 Z68.27 Body mass index (BMI) 27.0-27.9, adult Tai Rain M.D. 05/08/2019 R21 Rash and other nonspecific skin eruption Tai Rain M.D. 05/08/2019 L89.312 Pressure ulcer of right buttock, stage 2 Tai Rain M.D. 05/08/2019 R60.0 Localized edema Tai Rain M.D. 04/28/2019 I10 Essential (primary) hypertension Tai Rain M.D. 04/28/2019 R60.0 Localized edema Tai Rain M.D. 04/28/2019 R33.9 Retention of urine, unspecified Tai Rain M.D. 04/28/2019 N40.1 Benign prostatic hyperplasia with lower Tai Rain M.D. urinary tract symptoms 04/28/2019 J44.9 Chronic obstructive pulmonary disease, Tai Rain M.D. unspecified 04/28/2019 F41.9 Anxiety disorder, unspecified Tai Rain M.D. 04/28/2019 Z96.0 Presence of urogenital implants Tai Rain M.D. 04/18/2019 S01.81xA Laceration without foreign body of other Tai Rain M.D. part of head, initial encounter 04/18/2019 R21 Rash and other nonspecific skin eruption Tai Rain M.D. 04/18/2019 R33.9 Retention of urine, unspecified Tai Rain M.D. 04/18/2019 N40.1 Benign prostatic hyperplasia with lower Tai Rain M.D. urinary tract symptoms 04/18/2019 K40.30 Unilateral inguinal hernia, with Tai Rain M.D. obstruction, without gangrene, not specified as recurrent 04/03/2019 M25.512 Pain in left shoulder Tai Rain M.D. 04/03/2019 S40.022A Contusion of left upper arm, initial Tai Rain M.D. encounter 04/03/2019 M95.8 Other specified acquired deformities of Tai Rain M.D. musculoskeletal system 03/27/2019 R60.0 Localized edema Tai Rain M.D. [...] index (BMI) 26.0-26.9, adult Tai Rain M.D. Plan of Treatment Future Appointment(s):08/28/2019 11:15 am - Tai Rain M.D. at Main [facility]2612/03/2017 - Nikunj GironJ44.9 Chronic obstructive pulmonary disease, [...] (Grimaced some with the discussion.)Z71.89 Other specified buhvelzkcqE71.899 Other senior living (current) drug therapy Functional Status Description No Information Available Mental Status Description No Information Available Referrals Description No Information Available
--- OUTSIDE RECORDS SUMMARY | 2019-06-12 20:14 | XMS REPORT | Continuity of Care Document ---
:1930 External Reference #:[id number] Author Name Flakita Borjas Care Team Providers Name Role Phone [facility], Care Team Information [employer] Kimberley Newell MD, [facility] Care Team Information [employer] [phone] Problems Active Problems Provider Date Benign essential [...] 02/01/19 Levofloxacin 1 by mouth every 10tabs Briseyda, 01/30/2019 - 750mg day for possible Sravan Lujan 02/09/2019 Tablets pneumonia Cephalexin 1 by mouth 3x a 30tabs L03.116 Meccariley, 01/04/2019 - 500mg day x10 days; for Sravan Lujan 01/14/2019 Tablets skin infection Silvadene apply to affected 85gm S90.522A Nieshasenthil, 01/04/2019 - 1% Cream area near left Sravan Lujan 01/11/2019 ankle and cover with non adherent gauze once daily as described, change wound dressing daily Immunizations CPT Code Status Date Vaccine Lot # [id number] Given 01/11/2019 Influenza Vaccine, Inactivated, Subunit, [id number] Adjuvanted, For Intrmusc 12244 Given 01/12/2018 Influenza Vaccine Split Virus Preservative Free Im [id number] Use (hi-dose) 07213 Given 12/14/2016 Influenza Vaccine Split Virus Preservative Free Im [id number] Use (hi-dose) 84692 Given 01/15/2016 Influenza Vaccine Split Virus Preservative Free Im [id number] Use (hi-dose) 70889 Given 03/06/2015 Influenza Virus Vaccine, Quadrivalent, Split, [id number] Preservative Free 10493 Given 10/09/2014 Prevnar 13 [id number] 43707 Given 02/26/2014 Influenza Vaccine Split Virus Preservative Free Im [id number] Use (hi-dose) 65647 Given 09/29/2013 Adacel or Boostrix, TDaP [id number] 30111 Given 01/30/2013 Flu, Split Virus 3Yrs [id number] 35659 Given 01/06/2012 Flu, Split Virus 3Yrs [id number] 68598 Given 01/19/2011 Flu, Split Virus 3Yrs [id number] 70183 Given 02/25/2010 Flu, Split Virus 3Yrs [id number] 87228 Given 04/18/2009 Flu, Split Virus 3Yrs [id number] 92331 Given 02/17/2008 Flu, Split Virus 3Yrs [id number] 23967 Given 08/09/2007 Pneumococcal Immunization [id number] 16700 Given 01/31/2007 Flu, Split Virus 3Yrs [id number] 43797 Given 02/22/2006 Flu, Split Virus 3Yrs [id number] 25191 Given 01/30/2005 Flu, Split Virus 3Yrs 22733 Given 02/09/2004 Flu, Split Virus 3Yrs 83885 Given 08/29/2003 Td Immunization 43826 Given 02/17/2003 Flu, Split Virus 3Yrs 55929 Given 06/24/1994 Pneumococcal Immunization [id number] Refused 01/31/2007 Zostavax Vital Signs Date Vital [...] Date Facility Test Result H/L Range Note Basic Metabolic 06/06/2019 [facility] Sodium 143 mmol/L Normal 135- 145 Panel [phone] Potassium 3.7 mmol/L Normal 3.5-5.0 Chloride 105 mmol/L Normal 101-111 Co2 Carbon Dioxide 30 mmol/L Normal 22-32 Anion Gap 8 mmol/L Normal 2-11 Glucose 106 mg/dL High 70-100 Blood Urea Nitrogen 31 mg/dL High 6-24 Creatinine 0.97 mg/dL Normal 0.67-1.17 BUN/Creatinine Ratio 32.0 High 8-20 Calcium 10.3 mg/dL Normal 8.6-10.3 Egfr Non- 73.2 >60 Egfr 88.6 >60 1 Inr/Protime 06/06/2019 [facility] Inr 1.45 High 0.82-1.09 2 [phone] CBC No Diff 06/06/2019 [facility] White Blood 8.9 10^3/uL Normal 3.5- 10.8 [phone] Count Red Blood Count 3.75 10^6/uL Low 4.18-5.48 Hemoglobin 11.3 g/dL Low 14.0-18.0 Hematocrit 34 % Low 42-52 Mean Corpuscular Volume 92 fL Normal 80-94 Mean Corpuscular Hemoglobin 30 pg Normal 27-31 Mean Corpuscular HGB Conc 33 g/dL Normal 31-36 Red Cell Distribution Width 15 % Normal 10-15 Platelet Count 260 10^3/uL Normal 150-450 Mean Platelet Volume 9.7 fL Normal 7.4-10.4 Laboratory test 06/06/2019 [facility] Partial 42.0 High 26.0-38.0 finding [phone] Thrombo seconds Time PTT Urine Culture And 05/26/2019 [facility] Urine SEE RESULT 3, 4 Sensitivities [phone] Culture BELOW Basic Metabolic 04/28/2019 [facility] Sodium 142 mmol/L Normal 135- 145 Panel [phone] Potassium 4.6 mmol/L Normal 3.5-5.0 Chloride 105 mmol/L Normal 101-111 Co2 Carbon Dioxide 31 mmol/L Normal 22-32 Anion Gap 6 mmol/L Normal 2-11 Glucose 82 mg/dL Normal 70-100 Blood Urea Nitrogen 30 mg/dL High 6-24 Creatinine 0.93 mg/dL Normal 0.67-1.17 BUN/Creatinine Ratio 32.3 High 8-20 Calcium 11.0 mg/dL High 8.6-10.3 Egfr Non- 76.9 >60 Egfr 93.0 >60 5 Poc Urinalysis 04/05/2019 [facility] Poc Glucose, Urine Negative Negative [phone] Poc Bilirubin, Urine Negative Negative Poc Ketone, Urine Negative Negative Poc Specific [place], Urine 1.020 Normal 1.010-1.030 Poc Blood, Urine 1+ Abnormal Negative Poc pH, Urine 7.5 Normal 5-9 Poc Protein, Urine 1+ Abnormal Negative Poc Urobilinogen, Urine 1.0 Negative Poc Nitrite, Urine Positive Abnormal Negative Poc Leukocytes, Urine Trace Abnormal Negative Poc Color, Urine Yellow Poc Clarity, Urine Cloudy 6 Urine Culture And 04/05/2019 [facility] Urine SEE RESULT 7, 8 Sensitivities [phone] Culture BELOW Poc Urinalysis 04/05/2019 [facility] Poc Glucose, Negative Negative [phone] Urine Poc Bilirubin, Urine Negative Negative Poc Ketone, Urine Negative Negative Poc Specific [place], Urine 1.020 Normal 1.010-1.030 Poc Blood, Urine 1+ Abnormal Negative Poc pH, Urine 7.0 Normal 5-9 Poc Protein, Urine 1+ Abnormal Negative Poc Urobilinogen, Urine 0.2 Negative Poc Nitrite, Urine Negative Negative Poc Leukocytes, Urine 3+ Abnormal Negative Poc Color, Urine Yellow Poc Clarity, Urine Cloudy 9 Urine Culture And 04/05/2019 [facility] Urine SEE RESULT 10, 11 Sensitivities [phone] Culture BELOW CBC Auto Diff 02/15/2019 [facility] White Blood 11.0 High 3.5-0 [phone] Count 10^3/uL 0.8 Red Blood Count 4.31 [...] Blood Cells % 0.0 Laboratory test 02/15/2019 [facility] Lactic Acid 0.9 mmol/L Normal 0.5-2.0 12 finding [phone] B-Type Natriuretic Peptide BNP 847 pg/mL High <=100 Basic Metabolic Panel 02/15/2019 [facility] Sodium 137 mmol/L Normal 135-145 [phone] Potassium 4.4 mmol/L Normal 3.5-5.0 Chloride 104 mmol/L Normal 101-111 Co2 Carbon Dioxide 26 mmol/L Normal 22-32 Anion Gap 7 mmol/L Normal 2-11 Glucose 126 mg/dL High 70-100 Blood Urea Nitrogen 55 mg/dL High 6-24 Creatinine 1.26 mg/dL High 0.67-1.17 BUN/Creatinine Ratio 43.7 High 8-20 Calcium 10.5 mg/dL High 8.6-10.3 Egfr Non- 54.3 >60 Egfr 65.7 >60 13 Liver Function Panel 02/15/2019 [facility] Total Protein 6.0 g/dL Low 6.4-8.9 [phone] Albumin 3.1 g/dL Low 3.2-5.2 Globulin 2.9 g/dL Normal 2-4 Albumin/Globulin Ratio 1.1 Normal 1-3 Total Bilirubin 1.70 mg/dL High 0.2-1.0 Direct Bilirubin 0.50 mg/dL High 0.03-0.18 Indirect Bilirubin 1.2 mg/dL High 0.3-1.0 Alkaline Phosphatase 163 U/L High 34-104 Alt 16 U/L Normal 7-52 Ast 45 U/L High 13-39 Laboratory test 02/15/2019 [facility] Magnesium 2.0 mg/dL Normal 1.9- 2.7 finding [phone] C Reactive Protein 43.86 mg/L High <8.01 Rheumatoid Factor < 10 IU/mL Normal <15 CBC Auto Diff 02/14/2019 [facility] White Blood 15.4 10^3/uL High 3.5 -10.8 [phone] Count Red Blood Count 4.52 10^6/uL Normal [...] Red Blood Cells % 0.1 Inr/Protime 02/14/2019 [facility] Inr 1.27 High 0.82-1.09 14 [phone] Urine Drug SCR 02/14/2019 [facility] Urine None None Detect ED & Pain [phone] Amphetamine Detected Clinic Screen Urine Barbiturates Screen None Detected None Detect Urine Benzodiazepine Screen None Detected None Detect Urine Cannabinoids Screen None Detected None Detect Urine Cocaine Screen None Detected None Detect Urine Opiates Screen None Detected None Detect Urine Phencyclidine Screen None Detected None Detect 15 Comp Metabolic Panel 02/14/2019 [facility] Sodium 137 mmol/L Normal 135-145 [phone] Potassium 4.2 mmol/L Normal 3.5-5.0 Chloride 102 [...] Egfr Non- 48.1 >60 Egfr 58.1 >60 16 Laboratory test finding 02/14/2019 [facility] Alcohol 34 mg/dL High < 10 [phone] Urinalysis Profile 02/14/2019 [facility] Urine Color Yellow [phone] Urine Appearance Clear Urine Specific [place] 1.017 Normal 1.010-1.030 Urine pH 6.0 Normal [...] Present Abnormal Absent Urine Culture And 02/14/2019 [facility] Urine Culture SEE RESULT 17 Sensitivities [phone] BELOW 1 Because ethnic data is not always [...] 5 Kidney failure <15 (or dialysis) 2 Standard intensity warfarin therapeutic range: 2.0-3.0 High intensity warfarin therapeutic range: 2.5-3.5 3 [id number] 4 SEE RESULT BELOW Name: OCTAVIA REY : [address]: Shelbie Pittman MD Acct: [id number] Unit: [id number] AGE: 89 Location: [facility] Re05/26/19 SEX: M Status: DEP ER SPEC: [id number] SHIRLEY: 05/26/19-[address] [place] [address] DR: Shelbie Pittman MD REQ: [id number] RECD: 05/26/191113 STATUS: COMP [facility] DR: Tai Rain MD _ SOURCE: URINE [facility]: ORDERED: Urine Culture COMMENTS: [id number] Procedure Result Reported Site Urine Culture Final 05/27/19- 1012 ML No Growth (<1,000 CFU/mL) * ML - Main Lab . END OF REPORT DEPARTMENT OF PATHOLOGY, [address] [place] [address] Michael Washington M.D. Director [facility] # [id number] 5 Because ethnic data is not always [...] 5 Kidney failure <15 (or dialysis) 6 Message Clerk: [id number] FROM NEW CATHETER 8 SEE RESULT BELOW Name: OCTAVIA REY : [address]: Faviola Han MD Acct: [id number] Unit: [id number] AGE: 89 Location: [facility] Re04/05/19 SEX: M Status: DEP ER SPEC: [id number] SHIRLEY: 04/05/19 [facility] DR: Slava CHRISTENSEN REQ: [id number] RECD: 04/05/19 STATUS: LEXII TAPIA DR: Faviola Rain MD _ SOURCE: URINE SPDESC: ORDERED: Urine Culture COMMENTS: FROM NEW CATHETER Procedure Result Reported Site Urine Culture Final 04/08/19812 ML Organism 1 STAPHYLOCOCCUS EPIDERMIDIS [place] Count >100,000 (Many) CFU/ML 1. STAPHYLOCOCCUS EPIDERMIDIS [...] CONTINUED ON NEXT PAGE DEPARTMENT OF PATHOLOGY, [address] [place] [address] Michael Washington M.D. Director [facility] # [id number] Specimen: [id number] Collected: 04/05/19 Received: 04/05/19 (Continued) Procedure Result Reported Site Urine Culture Final (continued) * These antibiotics are not available in the [facility] Formulary Contact the Microbiology Department for any additional antibiotic reporting. * ML - Main Lab . END OF REPORT DEPARTMENT OF PATHOLOGY, [address] [place] [address] Michael Washington M.D. Director [facility] # [id number] Message Clerk: [id number] SEE RESULT BELOW Name: OCTAVIA REY : [address]: Faviola Han MD Acct: [id number] Unit: [id number] AGE: 89 Location: [facility] Re04/05/19 SEX: M Status: DEP ER SPEC: [id number] SHIRLEY: 04/05/19-1404 [facility] DR: Slava CHRISTENSEN REQ: [id number] RECD: 04/05/19160 STATUS: LEXII TAPIA DR: Faviola Rain MD _ SOURCE: URINE SPDESC: ORDERED: Urine Culture COMMENTS: [id number] QUERIES: Urine Source: Random Procedure Result Reported Site Urine Culture Final 04/08/19818 ML Organism 1 STAPHYLOCOCCUS EPIDERMIDIS [place] Count >100,000 (Many) CFU/ML 1. STAPHYLOCOCCUS EPIDERMIDIS [...] CONTINUED ON NEXT PAGE DEPARTMENT OF PATHOLOGY, [address] [place] [address] Michael Washington M.D. Director [facility] # [id number] Specimen: [id number] Collected: 04/05/19140 Received: 04/05/19 (Continued) Procedure Result Reported Site Urine Culture Final (continued) * These antibiotics are not available in the [facility] Formulary Contact the Microbiology Department for any additional antibiotic reporting. * ML - Main Lab . END OF REPORT DEPARTMENT OF PATHOLOGY, [address] [place] [address] Michael Washington M.D. Director [facility] # [id number] 12 [facility] Severe Sepsis and Septic Shock Management Bundle Measure requires all lactic acids initially measuring >2.0 mmol/L be repeated. 13 Because ethnic data is not always readily [...] 15-29 5 Kidney failure <15 (or dialysis) 14 Standard intensity warfarin therapeutic range: 2.0-3.0 High intensity warfarin therapeutic range: 2.5-3.5 15 The urine specimen was tested at the listed cutoffs: Drug class test level (ng/mL) Amphetamines 500 Barbiturates 200 Benzodiazepine metabolites 200 Cocaine metabolites 150 Cannabinoids 50 Opiates 300 Pcp 25 Specimen was received without chain of custody. Results should be used for medical purposes only. 16 Because ethnic data is not always readily [...] 15-29 5 Kidney failure <15 (or dialysis) 17 SEE RESULT BELOW Name: OCTAVIA REY Tyshawn : [address]: Jovi Atkinson MD Acct: [id number] Unit: [id number] AGE: 88 Location: ED Re02/14/19 SEX: M Status: DEP ER SPEC: [id number] SHIRLEY: 02/14/[address]: Jovi Atkinson MD REQ: [id number] RECD: 02/14/19 STATUS: LEXII TAPIA DR: Tai Rain MD _ SOURCE: URINE SPDESC: ORDERED: Urine Culture Procedure Result Reported Site Urine Culture Final 02/15/19- 1626 ML No Growth (<1,000 CFU/mL) * ML - Main Lab . END OF REPORT DEPARTMENT OF PATHOLOGY, [address] [place] [address] Michael Washington M.D. Director [facility] # [id number] Procedures Date Code Description Status 06/06/2019 71067 Electrocardiogram Complete Completed 04/03/2019 85257 X-Ray Shoulder Two Or More Views Completed 01/16/2019 65827 X-Ray Chest 2 V Completed 08/31/2006 93296485 Colonoscopy Completed Medical Devices Description No Information [...] Main Office Tai Rain R60.0 Localized edema Sravan S90.522A Blister (nonthermal), left ankle, initial encounter [...] Rain M.D. unspecified 06/06/2019 F41.9 Anxiety disorder, Tai Carbajal M.D. 06/06/2019 I48.20 Chronic atrial fibrillation, unspecified [...] Rain M.D. unspecified 04/28/2019 F41.9 Anxiety disorder, Tai Carbajal M.D. 04/28/2019 Z96.0 Presence of urogenital implants [...] Cough Tai Rain M.D. 02/01/2019 R06.00 Dyspnea, marthaified Tai Rain M.D. 02/01/2019 F41.9 Anxiety disorder, [...] am - Tai Rain M.D. at Main Wtrjqj2912/03/2017 - Nikunj GironJ44.9 Chronic obstructive pulmonary disease, [...] (Grimaced some with the discussion.)Z71.89 Other specified qwltcbuhdwW39.899 Other halfway (current) drug therapy Functional Status Description No Information Available Mental Status Description No Information Available Referrals Description No Information Available
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
[2019-06-12 20:58] LABS: INR 2.17 (0.82-1.09)
[2019-06-12 21:03] LABS: Albumin 3.4 g/dL (3.2-5.2); BUN/Creatinine Ratio 30.8 (8-20); Calcium 9.9 mg/dL (8.6-10.3); EGFR African American 56.6 (>60); EGFR Non-African American 46.8 (>60); Globulin 3.5 g/dL (2-4); Potassium 3.7 mmol/L (3.5-5.0); Total Bilirubin 0.8 mg/dL (0.2-1.0); Total Protein 6.9 g/dL (6.4-8.9)
[2019-06-12 21:17] LABS: ABS Eosinophils 0.1 10^3/ul (0-0.6); ABS Lymphocytes 0.6 10^3/ul (1.0-4.8); ABS Monocytes 0.6 10^3/ul (0-0.8); ABS Neutrophils 4.7 10^3/ul (1.5-7.7); Hematocrit 34 % (42-52); Hemoglobin 11.4 g/dL (14.0-18.0); Lymphocyte % 10.6 %; Mean Corpuscular HGB Conc 33 g/dL (31-36); Mean Corpuscular Hemoglobin 30 pg (27-31); Mean Corpuscular Volume 90 fL (80-94); Mean Platelet Volume 9.3 fL (7.4-10.4); Platelet Count 214 10^3/uL (150-450); Red Blood Count 3.83 10^6 /uL (4.18-5.48); Red Cell Distribution Width 16 % (10-15); White Blood Count 6.1 10^3/uL (3.5-10.8)
[2019-06-12 21:51] LABS: Urine Appearance Turbid; Urine Bilirubin Negative (Negative); Urine Blood 3+ (Negative); Urine Color Amber; Urine Glucose Negative (Negative); Urine Ketones Negative (Negative); Urine Nitrite Positive (Negative); Urine Protein 2+(100 mg/dL) (Negative); Urine Specific Gravity 1.021 (1.010-1.030); Urine Urobilinogen Negative (Negative)
[2019-06-12 22:02] LABS: Urine Bacteria Absent (Absent); Urine Red Blood Cell 3+(>10/hpf) (Absent); Urine White Blood Cell 1+(6-10/hpf) (Absent)
[2019-06-12 23:02] VITALS: BP 135/65
--- NOTE | 2019-06-15 05:49 | ED ---
Imaging and Labs Follow Up Follow Up Type: Labs/Cultures Labs/Culture Result: Preliminary urine culture shows greater than 100,000 Serratia marcescens. Patient Communication/Plan: Awaiting sensitivity report at this time. Patient appeared asymptomatic at the time of discharge. Provider Diagnoses: Fall, Minor head injury
== END 2019-06-12 23:01 | disposition home or self-care (01) ==
LOC: ED 19:48
DX: S09.90XA Unspecified injury of head, initial encounter (principal); W19.XXXA Unspecified fall, initial encounter; Y92.9 Unspecified place or not applicable; I10 Essential (primary) hypertension; I48.91 Unspecified atrial fibrillation; J44.9 Chronic obstructive pulmonary disease, unspecified; Z79.899 Other long term (current) drug therapy
CPT/HCPCS: 36415; 70450; 80053; 81003; 81015; 83605; 85025; 85610; 87077; 87086; 87186; 99283

== ENCOUNTER 2019-06-21 05:38 | Observation (INO) | payer OTHER ==
--- NOTE | 2019-06-12 03:40 | HP ---
CC: Dr. Rain * HISTORY AND PHYSICAL: DATE OF PLANNED ADMISSION AND SURGERY: 06/21/19 Please refer to the history and physical by Ms. Flakita Borjas from Dr. Rain's office detailing the medical history and physical exam of Mr. Swan. HISTORY OF PRESENT ILLNESS: Mr. Swan is a 89-year-old white male who was admitted to [facility] in January 2019 following a fall and history of ethanol abuse. On admission, he found to have pneumonia and in urinary retention of 1,000 cc. He was kept on catheter drainage during the hospital stay, he was treated for pneumonia, was then discharged to [facility] for rehab. He was kept on catheter drainage and discharged on both terazosin and tamsulosin. I evaluated him in my office after his discharge. He was given a trial of voiding; however, he failed it and the catheter had to be replaced. Finasteride was added, and he was kept on catheter drainage. Cystoscopy last month showed a large obstructing prostate with a prominent median lobe and there was diffuse bladder trabeculations and catheter reaction. There were no suspicious bladder lesions seen. He was given another trial of voiding after the cystoscopy. He initially was able to void, however, he went into urinary retention again, and the Parker catheter had to be replaced. Urodynamic studies showed a high voiding detrusor pressure making him a good candidate for TURP. After obtaining medical clearance from Dr. Rain, the patient is admitted for transurethral resection of the prostate. The patient's history is relevant for atrial fibrillation for which he had been maintained on Eliquis. He has not had any embolic phenomena. Dr. Rain felt it is safe to discontinue the Eliquis for the procedure and for about 2 to 3 weeks postoperatively. The list of medications and his medical and social history are all included in Dr. Rain's office note. The patient gives a history of alcohol abuse, however, he has been doing well recently. PHYSICAL EXAMINATION GENERAL: He is an elderly white male who looks older than his age. VITAL SIGNS: Blood pressure 160/80. ABDOMEN: Exam of the abdomen is normal. He has no CVA tenderness. RECTAL: Exam showed an enlarged but non-suspicious prostate. IMPRESSION: 1. Urinary retention due to prostate enlargement and obstruction, failed medical treatment with recurrent episodes of urinary retention on chronic catheter drainage. 2. Good detrusor function by urodynamic studies. 3. History of atrial fibrillation on anticoagulation with the Eliquis discontinued 3 days preoperatively. PLAN: Plan is to proceed with transurethral resection of the prostate. His coag studies will be checked on the morning of his admission. I discussed the operation in detail with the patient and his . Some of the potential complications including infections, hematuria, small incidence of urinary incontinence and small incidence of embolic phenomena due to stoppage of the Eliquis. All their questions were answered. [id number]/CPS #: [id number] MIKEY
[~2019-06-21 05:38] MED LIST: Buffered Lidocaine 1% SYRIN* 1 ML/SYRINGE INTRADERM ONE
[2019-06-21] MEDS ORDERED: Dexamethasone IV* 4 MG/ML 1 ML (4 MG) IV SLOW PU ONE (06:00)
[2019-06-21] MEDS ORDERED: Lactated Ringers 1000 ML Bag* 1,000 ML IV SCH ×2 (06:00→20:00)
[2019-06-21] MEDS ORDERED: Famotidine IV* 10 MG/ML 2 ML (20 mg) IV ONE (06:00)
[2019-06-21] MEDS ORDERED: Famotidine IV* 10 MG/ML 2 ML (20 mg) ONE (06:53)
[2019-06-21] MEDS ORDERED: cefTRIAXone(*) 2 GM ADDV.VIAL IVPB ONE (06:53)
[2019-06-21] MEDS ORDERED: Dexamethasone IV* 4 MG/ML 1 ML (4 MG) ONE ×2 (06:53→07:18)
[2019-06-21 07:21] LABS: Activated Partial Thrombo Time 39.1 seconds (26.0-38.0); INR 1.16 (0.82-1.09)
[2019-06-21] MEDS ORDERED: Lidocaine 2% PF * 5 ML VIAL ONE ×2 (07:41→18:56)
[2019-06-21] MEDS ORDERED: Propofol* 10 MG/ML 20 ML BTL ONE ×2 (08:03→18:56)
[2019-06-21] MEDS ORDERED: fentaNYL* 50 MCG/ML 2 ML VIAL (100 MCG VIAL) ONE ×5 (08:08→19:51)
[2019-06-21] MEDS ORDERED: Phenylephrine 40 MCG/ML SYRINGE ONE (08:23)
[2019-06-21] MEDS ORDERED: EPHEDrine (Pressors)* 50 MG/ML VIAL ONE ×2 (08:23→19:56)
[2019-06-21] MEDS ORDERED: Ondansetron INJ* 2 MG/ML VIAL ONE (08:24)
[2019-06-21] MEDS ORDERED: Naloxone* 0.4 MG/ML 1 ML VIAL IV PRN ×2 (09:08→19:05)
[2019-06-21] MEDS ORDERED: DiMENhydriNATE IV* 50 MG/ML VIAL IV PUSH PRN (09:08)
[2019-06-21] MEDS: fentaNYL* 50 MCG/ML 2 ML VIAL (100 MCG VIAL) IV PRN ×4 (09:23→10:15)
[2019-06-21] MEDS ORDERED: Oxybutynin TAB* 5 MG PO PRN (11:59)
--- NOTE | 2019-06-21 13:21 | OP ---
CC: Dr. Rain * DATE OF OPERATION: 06/21/19 - ROOM #350 DATE OF : 34 SURGEON: Dr. Heaton. ANESTHESIOLOGIST: Dr. Hector Maddox. ANESTHESIA: General. PRE-OP DIAGNOSES: 1. Urinary retention. 2. Benign prostatic hyperplasia. POST-OP DIAGNOSES: 1. Urinary retention. 2. Benign prostatic hyperplasia. OPERATIVE PROCEDURE: 1. Cystoscopy 2. Transurethral resection of the prostate. INDICATIONS FOR PROCEDURE: Mr. Swan is an 89-year-old white male who was admitted in January 2018 with a history of fall and alcohol abuse and he was noted on admission to have pneumonia and to be in urinary retention of 1000 cc. He had a Parker catheter placement, was treated for his pneumonia and started on tamsulosin and finasteride for his BPH. He failed several trials of voiding. Office cystoscopy showed a large obstructing prostate with a prominent median lobe. Urodynamic studies showed a high voiding detrusor pressure and low-flow, persistent urinary retention, making him a good candidate for transurethral resection of the prostate. After discussing the options of management, the patient and his decided to proceed with TURP. OPERATIVE FINDINGS: At cystoscopy, the penile and bulbar urethrae looked normal. The prostatic urethra measured 3 cm in length and there was significant degree of obstruction by trilobar hyperplasia of the prostate with a prominent median lobe. Examination of the bladder showed catheter reaction. There were no suspicious bladder lesions seen. There was diffuse heavy trabeculations with multiple cellules. No diverticula or bladder calculi were noted. At TURP, the prostate adenoma was moderately vascular. There were multiple prostatic calculi noted in the posterior aspect of the prostate. DESCRIPTION OF PROCEDURE: After successful general anesthesia, the patient was placed in the lithotomy position and was prepped and draped for a cystoscopy. Cystoscopy was performed, the bladder was carefully inspected, and the above findings were noted. The resectoscope was then introduced inside the bladder. Mannitol/sorbitol solution was used for irrigation and the inflow and outflow were adjusted to avoid overdistention of the bladder. The median lobe was first resected down to the bladder neck muscle fibers. The portions of the lateral lobes of the prostate projecting inside the bladder were then resected circumferentially. The resectoscope was then positioned in the mid prostatic urethra and the prostate tissue was resected circumferentially. The resectoscope was then placed at the level of the veru. The left lobe was resected starting at 5 o'clock and proceeding anteriorly. The right lobe was resected next. The anterior and the apical tissues were resected last. Because of the elevated bladder neck, there was some undermining of the bladder neck but no perforation. The bleeders were electrocoagulated as the resection proceeded. Multiple prostatic calculi were noted especially in the posterior prostatic fossa. The limits of the resection were the bladder neck proximally, the verumontanum distally, and the capsule circumferentially. At the completion of the resection, the prostatic fossa was wide open. There was very good hemostasis. There were no open sinuses and no evidence of capsular perforation. The verumontanum and the external sphincter were intact. The bladder was then thoroughly irrigated and the all the prostate chips were evacuated. The ureteral orifices were inspected and were intact. After making sure that the hemostasis was good and all the prostate chips were evacuated, a size 22-Indian Parker catheter was passed inside the bladder and the balloon inflated with 30 cc of water. Catheter was placed under gentle traction and taped to the right thigh of the patient. Irrigations yielded clear returns. The patient tolerated the procedure well and left the operating room in good condition. The blood loss was estimated at less than 50 cc. The specimen was prostate chips. [id number]/[facility] [place] #: [id number] EMANUELD
[2019-06-21] MEDS: Polyethylene Glycol 3350* 17 GM PACKET PO SCH (14:13)
[2019-06-21] MEDS: oxyCODONE/Acetamin 5/325 MG* TAB PO PRN ×2 (15:32→23:50)
[2019-06-21] MEDS: SPIRIVA Respimat* (tiotropium) 2.5 mcg/inh Inhaler INH SCH (15:33)
[2019-06-21] MEDS: Chlorthalidone TAB* 50 MG PO SCH (15:42)
[2019-06-21 17:30] LABS: Hematocrit 31 % (42-52); Hemoglobin 10.6 g/dL (14.0-18.0)
[2019-06-21 17:42] LABS: Activated Partial Thrombo Time 36.8 seconds (26.0-38.0); INR 1.18 (0.82-1.09)
[2019-06-21 17:45] LABS: BUN/Creatinine Ratio 23.4 (8-20); EGFR African American 64.3 (>60); EGFR Non-African American 53.2 (>60); Potassium 4.9 mmol/L (3.5-5.0)
[2019-06-21] MEDS ORDERED: Succinylcholine* 20 MG/ML 10 ML VIAL ONE (18:56)
[2019-06-21] MEDS ORDERED: Iohexol 180 (CONTRAST) 10 ML SDV IV ONE (18:57)
[2019-06-21] MEDS ORDERED: Sodium Citrate/Citric Acid* 15 ML UDC PO ONE (19:04)
[2019-06-21] MEDS ORDERED: Buffered Lidocaine 1% SYRIN* 1 ML/SYRINGE INTRADERM ONE (19:04)
[2019-06-21] MEDS ORDERED: oxyCODONE TAB* 5 MG TAB PO PRN (19:05)
[2019-06-21] MEDS ORDERED: HYDROcodone/ACETAMIN 5-325 MG* 1 TAB PO PRN (19:05)
[2019-06-21] MEDS ORDERED: fentaNYL* 50 MCG/ML 2 ML VIAL (100 MCG VIAL) IV PRN (19:05)
[2019-06-21] MEDS ORDERED: Acetaminophen TAB* 325 MG PO PRN (19:05)
[2019-06-21] MEDS ORDERED: Sodium Citrate/Citric Acid* 15 ML UDC ONE (19:09)
[2019-06-21] MEDS: Albuterol HFA INHALER* 8 gm MDI INH SCH ×2 (19:41→22:10)
[2019-06-21] MEDS ORDERED: cloNIDine TAB* 0.1 MG PO SCH (21:00)
[2019-06-21] MEDS ORDERED: Terazosin CAP* 5 MG PO SCH (21:00)
[2019-06-21] MEDS: Potassium Chloride* LIQUID 20 MEQ/15 ML UDC PO SCH (22:15)
[2019-06-21] MEDS: Lactated Ringers 1000 ML Bag* 1,000 ML IV SCH (22:43)
--- NOTE | 2019-06-22 02:18 | OP ---
DATE OF OPERATION: 06/21/19 - ROOM #350 DATE OF : 34 SURGEON: Ilan Heaton MD PRE-OP DIAGNOSIS: Post transurethral resection of the prostate bleeding. POST-OP DIAGNOSIS: Post transurethral resection of the prostate bleeding. OPERATIVE PROCEDURE: 1. Cystoscopy. 2. Evacuation of clot retention. 3. Extensive ulceration of prostatic bleeders. INDICATIONS FOR PROCEDURE: Mr. Swan is an 89-year-old white male who has been in urinary retention and was noted to have prostate enlargement and obstruction and who failed medical treatment. He had been on Eliquis and that was discontinued 3 days preoperatively. This morning, he underwent an uncomplicated transurethral resection of the prostate. At the end of the resection, there was no bleeding noted and after placement of the Parker catheter in the OR, the returns of the irrigations were clear and his urine clear. In the recovery room, as the patient was waking up and straining, gross hematuria was noted. The Parker was then irrigated and then replaced with a three-way catheter placed on traction and started on continuous bladder irrigation. The outflow seemed pink to light butelr color on CBI. After the patient was on the floor; however, he had recurrent episodes of clot retention requiring multiple irrigations. With the persistent gross hematuria, the patient is taken back to the operating room for cystoscopy and fulguration. His INR was borderline elevated at about 1.2. PATHOLOGY: At cystoscopy, there was a large amount of clots noted, and the bladder had to be forcefully irrigated and about 200 cc of fresh clots were evacuated. Inspection of the prostate fossa showed clots covering the site of the prostate resection. After removing the clots, there was diffuse venous oozing noted from the bed of the prostate resection. No arterial bleeder was noted and there was not a single large venous bleed that could account for his clot retention. There was slow ooze from various areas of the prostate. Examination of the bladder showed intact ureteral orifices. There was no evidence of any bladder injury. There was some undermining of the posterior bladder neck and there was venous oozing from that area too. DESCRIPTION OF PROCEDURE: After successful general anesthesia, the patient was placed in the lithotomy position and was prepped and draped for a cystoscopy. The resectoscope was introduced inside the bladder under direct vision. The bladder was noted to be full of clots. Using the Tulio syringe and the sheath of the resectoscope, the clots were evacuated. The bladder was then carefully inspected and there was no oozing from the bladder wall and the ureteral orifices looked intact. The prostatic fossa was then inspected. The clots adherent to the resection site were then removed with the loop. Extensive fulguration was then carried over the whole prostate fossa wherever an oozer was noted. Fulguration of the posterior aspect where there was some undermining of the trigone was also carried extensively. At the end of the procedure, there was no oozing noted anymore. There were no clots left inside the bladder. The verumontanum and the external sphincter were intact. There was no perforation of the capsule and no open sinuses noted. The resectoscope was then removed. A size 24 three-way Parker catheter was then passed inside the bladder using stylette to avoid undermining the trigone. The balloon was then inflated with 30 cc of water. The catheter was placed under gentle traction and taped to the right side of the patient. Irrigation yielded clear returns. Continuous bladder irrigation was then instituted. The patient tolerated the procedure well and left the operating room in good condition. 200 cc of fresh clots were evacuated from the bladder and this considered as his blood loss. [id number]/[facility] #: [id number] MTDD
[2019-06-22 05:54] LABS: Hematocrit 26 % (42-52); Hemoglobin 8.9 g/dL (14.0-18.0)
[2019-06-22 06:16] LABS: BUN/Creatinine Ratio 27.3 (8-20); Calcium 9.5 mg/dL (8.6-10.3); EGFR African American 76.6 (>60); EGFR Non-African American 63.3 (>60); Potassium 4.7 mmol/L (3.5-5.0)
[2019-06-22] MEDS: Lactated Ringers 1000 ML Bag* 1,000 ML IV SCH (06:50)
[2019-06-22] MEDS ORDERED: cefTRIAXone(*) 1 GM in NS 0.9% 50 ML* 50 ML IVPB ONE (07:00)
[2019-06-22] MEDS: Albuterol HFA INHALER* 8 gm MDI INH SCH (07:26)
[2019-06-22] MEDS: SPIRIVA Respimat* (tiotropium) 2.5 mcg/inh Inhaler INH SCH (07:30)
[2019-06-22] MEDS ORDERED: Cetirizine* 10 MG TAB PO SCH (09:00)
[2019-06-22] MEDS ORDERED: Cholecalciferol TAB* 1000 UNITS PO SCH (09:00)
[2019-06-22] MEDS ORDERED: Allopurinol TAB* 300 MG PO SCH (09:00)
[2019-06-22] MEDS ORDERED: Mometasone/Formoter 200/5 MDI INH SCH (09:00)
[2019-06-22] MEDS ORDERED: Furosemide TAB* 20 MG PO SCH (09:00)
[2019-06-22] MEDS ORDERED: Finasteride TAB* 5 MG PO SCH (09:00)
[2019-06-22] MEDS: Polyethylene Glycol 3350* 17 GM PACKET PO SCH (14:17)
[2019-06-22 14:59] VITALS: BP 158/82
[2019-06-22] MEDS: Chlorthalidone TAB* 50 MG PO SCH (15:56)
[2019-06-22] MEDS: Potassium Chloride* LIQUID 20 MEQ/15 ML UDC PO SCH (15:57)
--- NOTE | 2019-06-22 21:58 | DS ---
DISCHARGE SUMMARY: DATE OF ADMISSION: 06/21/19 DATE OF DISCHARGE: 06/22/19 FINAL DIAGNOSES: 1. Urinary retention. 2. Benign prostatic hyperplasia. 3. Post transurethral resection of prostate bleeding. 4. Coronary artery disease. 5. Supraventricular arrhythmias. 6. Chronic obstructive pulmonary disease. PROCEDURES PERFORMED: 1. Transurethral resection of the prostate on 06/21/19. 2. Fulguration of bleeders of prostate on 06/21/19. HISTORY: Mr. Swan is an 89-year-old white male whom I have been following because of urinary retention. He was worked up and was noted to have a large obstructing prostate. Urodynamic studies showed good detrusor function. The patient was tried on medical treatment with tamsulosin and finasteride, but he failed the medical treatment and continued to be in urinary retention. The patient was given the option of proceeding with a TURP and he was agreeable. PAST MEDICAL HISTORY: The patient has a history of supraventricular arrhythmias and has been maintained on Eliquis. He has history of COPD and chronic anxiety. He was evaluated by Dr. Rain, his primary care physician and the Eliquis was discontinued 3 days prior to the planned surgery. His coagulation studies on the morning of his surgery showed a minimal borderline elevation of his INR and his PTT. COURSE IN HOSPITAL: The patient was admitted on the morning of his procedure. He underwent a transurethral resection of the prostate under general anesthesia. At the end of the procedure, his urine was crystal clear and his irrigation were clear. In the recovery room and after the patient was waken up and started heavy coughing, gross hematuria was noted in his catheter. His catheter was replaced and was put on traction and on continuous irrigation. The hematuria improved. However, on the floor, he went into another 2 to 3 episodes of clot urinary retention requiring irrigation. Because of the clot retention, he was taken back to the operating room that same evening and underwent a cystoscopy and evacuation of clot retention. The inspection of the prostate bed showed venous oozing, but there were no arterial bleeders to explain the degree of post TURP bleeding. Extensive fulguration of the prostate bed was carried. He did very well postoperatively. He was kept overnight on continuous bladder irrigation and on traction. By the morning, his urine was clear and he was feeling fine. The traction was released and the continuous bladder irrigation was discontinued. He was kept for observation until the afternoon and his urine remained clear. His lab work showed some anemia, but it was not felt to be significant enough for transfusion and the patient was not symptomatic from it. The patient is being discharged home in good condition, clear urine, normal vital signs, on all his preoperative medications with the exception of the tamsulosin and Eliquis. He was anemic but not symptomatic from his anemia. Pathology showed BPH, no malignancy. He will be seen in the office 1 week post-operatively and the Parker catheter was removed. Instructions were given for follow up care. [id number]/[facility] [place] #: [id number] MTDD
== END 2019-06-22 16:34 | disposition home or self-care (01) ==
LOC: OR 05:38 → SSU 11:33
PROVIDERS: ADMIT Urology; ATTEND Urology
PROC: 0TJB8ZZ Inspection of Bladder, Via Natural or Artificial Opening Endoscopic (ICD-10-PCS; 2019-06-21)
PROC: 0VT08ZZ Resection of Prostate, Via Natural or Artificial Opening Endoscopic (ICD-10-PCS; principal; 2019-06-21 07:30)
DX: N40.1 Benign prostatic hyperplasia with lower urinary tract symptoms (principal); N13.8 Other obstructive and reflux uropathy; R33.8 Other retention of urine; I25.10 Atherosclerotic heart disease of native coronary artery without angina pectoris; I48.91 Unspecified atrial fibrillation; J44.9 Chronic obstructive pulmonary disease, unspecified; Z79.01 Long term (current) use of anticoagulants
CPT/HCPCS: 36415; 80048; 85014; 85018; 85610; 85730; 88305; 94640; 96361; 96365; A9270-GY; G0378; J0330; J0696; J1100; J2405; J2704; J3010; J3535